=== PATIENT | male | born 1935 | race Caucasian/White ===

== ENCOUNTER 2020-07-03 09:00 | Inpatient (IN) | payer OTHER ==
[2020-07-03] VITALS (21 sets, daily range): BP systolic 85–128; BP diastolic 48–69
[~2020-07-03] VITALS: Ht 172.7 cm; Wt 77.2 kg
--- NOTE | 2020-07-03 09:23 | NUR ---
PT ARRIVED VIA EMS FROM [facility] [place]. PT SOA AND LABORED BREATHING. O2 SAT 79% ON 2 LITERS NC. PT PLACED ON 15 HIGH FLOW. RT CALLED. DR PADILLA NOTIFIED PT O2 SAT IN 80S ON HIGH FLOW NC AND PT LUNGS SOUND COARSE. ORDER GIVEN FOR VAPOTHERM. DR PADILLA WILL BE UP TO SEE PT SOON.
[2020-07-03] MEDS ORDERED: RT-ALBUTEROL/IPRATROPIUM 3 ML (DUONEB) VIAL ONE (09:30)
[2020-07-03 09:40] LABS: ABG BASE EXCESS -6.3 MMOL/L (-2.5-2.5); ABG OXYGEN SATURATION 86 % (94-100); ABG PCO2 63 MMHG (35-45); ABG PO2 72 MMHG (79-93); ABG TCO2 23.4 MMOL/L (21.0-31.0)
[2020-07-03 09:47] LABS: ABG PH 7.15 (7.37-7.43); ALLENS TEST YES-POS; INSPIRED O2 40L VAPOTHERM; PATIENT TEMP 36.4; VENTILATOR NO
[2020-07-03] MEDS ORDERED: RT-ALBUTEROL/IPRATROPIUM 3 ML (DUONEB) VIAL INH SCH (10:00)
--- NOTE | 2020-07-03 10:15 | NUR ---
REPORT GIVEN TO AXEL FOWLER.
--- NOTE | 2020-07-03 10:18 | Diagnostic Imaging Report ---
INDICATION: Shortness of breath. COMPARISON: No prior exam available for comparison. FINDINGS: There is cardiomegaly and ectasia of the thoracic aorta. There are diffuse bilateral pulmonary infiltrates. There is no pleural effusion or pneumothorax. Mediastinum is unremarkable. IMPRESSION: Diffuse bilateral pulmonary infiltrates. This may reflect COVID pneumonia. Recommend clinical correlation. Cardiomegaly and ectasia of the thoracic aorta. Some underlying central pulmonary venous congestion cannot be excluded. Dictated by: Dictated on workstation # [id number]
[2020-07-03 10:52] LABS: BASOPHILS % (AUTO) 0 % (0-10); EOSINOPHILS % (AUTO) 0 % (0-10); HEMATOCRIT 43 % (40-54); HEMOGLOBIN 14.1 g/dL (13.3-17.7); LYMPHOCYTES # (AUTO) 1.9 10^3/uL (1.0-4.0); LYMPHOCYTES % (AUTO) 29 % (12-44); MEAN CORPUSCULAR HEMOGLOBIN 31 pg (25-34); MEAN CORPUSCULAR HGB CONC 33 g/dL (32-36); MEAN CORPUSCULAR VOLUME 95 fL (80-99); MEAN PLATELET VOLUME 11.2 fL (9.0-12.2); MONOCYTES # (AUTO) 0.6 10^3/uL (0.0-1.0); MONOCYTES % (AUTO) 9 % (0-12); NEUTROPHILS % (AUTO) 61 % (42-75); PLATELET COUNT 229 10^3/uL (130-400); WHITE BLOOD COUNT 6.6 10^3/uL (4.3-11.0)
--- NOTE | 2020-07-03 11:01 | NUR ---
THIS NURSE UPDATED MOE THE DAUGHTER OF PT CONDITION.
[2020-07-03 11:09] LABS: ALBUMIN 3.6 GM/DL (3.2-4.5)
[2020-07-03 11:10] LABS: POTASSIUM 3.7 MMOL/L (3.6-5.0)
[2020-07-03 11:11] LABS: CALCIUM 7.7 MG/DL (8.5-10.1)
[2020-07-03 11:12] LABS: TOTAL PROTEIN 6.5 GM/DL (6.4-8.2)
[2020-07-03 11:14] LABS: BILIRUBIN,TOTAL 0.5 MG/DL (0.1-1.0)
[2020-07-03 11:15] LABS: PHOSPHORUS 5.8 MG/DL (2.3-4.7)
[2020-07-03 11:16] LABS: CREATININE SERUM 1.39 MG/DL (0.60-1.30)
[2020-07-03 11:19] LABS: MAGNESIUM 1.8 MG/DL (1.6-2.4)
--- NOTE | 2020-07-03 11:28 | NUR ---
THIS NURSE NOTIFIED DR YAO OF CRITICAL TROPONIN. ORDERS GIVEN. SEE ORDER HISTORY.
--- NOTE | 2020-07-03 11:35 | Consultation-Cardiology ---
HPI-Cardiology Cardiology Consultation: Date of Consultation 07/03/20 Time Seen by a Provider: 10:10 Date of Admission Attending Physician Ashlee Sparrow DO Admitting Physician No,Local Physician Consulting Physician SHANEL YAO MD, MA, FACP, FACC, FSCAI, CCDS Physician requesting consult: Dr Kat HPI: Chief Complaint: CC: Right-sided chest discomfort, worse with inspiration HPI 85 yo man transferred to Dr Kat by Dr Sparrow from the [facility] where he had admitted with gen malaisee and fever and right-sided chest discomfort. Discomfort started on the morning of 07/02/20, was worse with inspiration, was mod in intensity, persisted continuously for 24 hours and has now resolved. Has not had this before. Does not report shortness of breath. Denies palp or syncope or swelling. Notes gen malaise and weakness. No details of his hospitalization at the [facility] are available at the time of this writing. We are told that he had a mildly elevated troponin, but there is no record of it. Review of Systems-Cardiology Review of Systems Constitutional: As described under HPI Eyes: No vision change Ears/Nose/Throat: No ear discharge, No nasal drainage, No recent hearing loss Respiratory: As described under HPI Cardiovascular: As described under HPI Gastrointestinal: No constipation, No diarrhea, No nausea, No vomiting Genitourinary: No dysuria, No hematuria, No urine frequency changes Musculoskeletal: No back pain, No joint pain Skin: No rash, No ulcerations Psychiatric/Neurological: No seizure, No focal weakness, No syncope Hematologic: No bleeding abnormalities JDU-Mspjab-Qrrptm Hx Immunizations Up To Date Date of Influenza Vaccine: Mar 13, 2021 Past Medical History PMH As described under Assessment. Family Medical History Family Medical History: He does not describe any fam h/o premature CAD or sudden cardiac Allergies and Home Medications Allergies Coded Allergies: No Known Drug Allergies (Unverified , 07/03/20) Patient Home Medication List Home Medication List Reviewed: Yes Physical Exam-Cardiology Physical Exam Vital Signs/I&O 07/03/20 07/03/20 07/03/20 07/03/20 09:11 09:15 09:30 10:00 Temp 36.4 Pulse 97 101 103 Resp 28 35 B/P (MAP) 128/68 (88) Pulse Ox 83 87 87 O2 Delivery High Flow N/C Vapotherm Vapotherm O2 Flow Rate 15.00 40.00 40.00 100.00 FiO2 100 07/03/20 07/03/20 11:00 11:18 Pulse 74 77 Resp 27 23 B/P (MAP) 85/48 (60) Pulse Ox 92 94 O2 Delivery Vapotherm O2 Flow Rate 40.00 70.00 100.00 Capillary Refill : Constitutional: AAO x 3, well-developed, well-nourished HEENT: EOMI, hearing is well preserved; No xanthelasmas are seen Neck: carotid pulses are 2 + bilaterally, with good upstrokes Respiratory: No accessory muscle use; other (basal coarse crackles and scattered rhonchi) Cardiovascular: regular rate-rhythm, S1 and S2, systolic murmur (soft ANKIT at card base) Gastrointestinal: No tender; soft; No guarding, No rebound; audible bowel sounds Extremities: No clubbing, No cyanosis, No significant edema Neurologic/Psychiatric: oriented x 3, other (moves all limbs equally) Skin: No rash, No ulcerations Data Review Labs Laboratory Tests 07/03/20 09:35: Blood Gas Puncture Site LT RAD, Blood Gas Patient Temperature 36.4, Arterial Blood pH 7.15*L, Arterial Blood Partial Pressure CO2 63H, Arterial Blood Partial Pressure O2 72L, Arterial Blood HCO3 21L, Arterial Blood Total CO2 23.4, Arteria l Blood Oxygen Saturation 86L, Arterial Blood Base Excess -6.3L, Qamar Test YES- POS, Blood Gas Ventilator Setting NO, Blood Gas Inspired Oxygen 40L VAPOTHERM 07/03/20 10:35: White Blood Count 6.6, Red Blood Count 4.49, Hemoglobin 14.1, Hematocrit 43, Mean Corpuscular Volume 95, Mean Corpuscular Hemoglobin 31, Mean Corpuscular Hemoglobin Concent 33, Red Cell Distribution Width 12.9, Platelet Count 229, Mean Platelet Volume 11.2, Immature Granulocyte % (Auto) 1, Neutrophils (%) (Auto) 61, Lymphocytes (%) (Auto) 29, Monocytes (%) (Auto) 9, Eosinophils (%) (Auto) 0, Basophils (%) (Auto) 0, Neutrophils # (Auto) 4.0, Lymphocytes # (Auto) 1.9, Monocytes # (Auto) 0.6, Eosinophils # (Auto) 0.0, Basophils # (Auto) 0.0, Immature Granulocyte # (Auto) 0.0, D-Dimer 2.34H, Sodium Level 137, Potassium Level 3.7, Chloride Level 105, Carbon Dioxide Level 21, Anion Gap 11, Blood Urea Nitrogen 28H, Creatinine 1.39H, Estimat Glomerular Filtration Rate 49, BUN/Creatinine Ratio 20, Glucose Level 199H, Lactic Acid Level 1.63, Calcium Level 7.7L, Corrected Calcium 8.0L, Phosphorus Level 5.8H, Magnesium Level 1.8, Total Bilirubin 0.5, Aspartate Amino Transf (AST/SGOT) 75H, Alanine Aminotransferase (ALT/SGPT) 23, Alkaline Phosphatase 80, Total Protein 6.5, Albumin 3.6 A/P-Cardiology Assessment/Admission Diagnosis COVID-19 Nonspecific (R-sided, pleuritic) chest discomfort Hypotension Elevated troponin: NSTEMI vs type 2 [place] due to hypotension 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
[2020-07-03] MEDS ORDERED: ENOXAPARIN 40 MG/0.4 ML (LOVENOX) SYR SC ONE (11:45)
[2020-07-03] MEDS ORDERED: CLOPIDOGREL 300 MG (PLAVIX) TABLET PO ONE (11:45)
[2020-07-03] MEDS ORDERED: ASPIRIN 81 MG CHEW (CHILDREN'S ASA) PO ONE (11:45)
[2020-07-03] MEDS ORDERED: ASPIRIN 81 MG CHEW (CHILDREN'S ASA) ONE (11:46)
[2020-07-03] MEDS ORDERED: ENOXAPARIN 40 MG/0.4 ML (LOVENOX) SYR ONE (11:47)
[2020-07-03] MEDS ORDERED: NS (IVPB) 250 ML IV ONE (12:00)
[2020-07-03] MEDS ORDERED: NS IV 1000 ML 1,000 ML IV SCH (12:00)
[2020-07-03] MEDS: guaiFENesin (MUCINEX) 600 MG TAB PO SCH ×2 (12:30→20:55)
[2020-07-03 13:24] LABS: ABG BASE EXCESS -4.6 MMOL/L (-2.5-2.5); ABG OXYGEN SATURATION 97 % (94-100); ABG PCO2 36 MMHG (35-45); ABG PH 7.36 (7.37-7.43); ABG PO2 46 MMHG (79-93); ABG TCO2 20.9 MMOL/L (21.0-31.0)
[2020-07-03 13:25] LABS: ALLENS TEST POS; INSPIRED O2 70%; PATIENT TEMP 37; VENTILATOR NO
--- NOTE | 2020-07-03 13:36 | Pulmonary Consultation ---
History of Present Illness History of Present Illness Date Seen by Provider: Jul 03, 2020 Time Seen by Provider: 13:30 Date of Admission Allergies and Home Medications Allergies Coded Allergies: No Known Drug Allergies (Unverified , 07/03/20) Past Gqjieie-Syuefk-Xmilbr Hx Immunizations Up To Date Date of Influenza Vaccine: Mar 13, 2021 Review of Systems Time Seen by Provider: 13:36 Sepsis Event Evaluation Height, Weight, BMI Height: '" Weight: lbs. oz. kg; BMI Method: Exam Exam Vital Signs Date Time Temp Pulse Resp B/P (MAP) Pulse Ox O2 Delivery O2 Flow Rate FiO2 07/03/20 11:18 77 23 94 70.00 07/03/20 11:00 74 27 85/48 (60) 92 Vapotherm 40.00 100.00 07/03/20 10:00 103 35 128/68 (88) 87 Vapotherm 40.00 100.00 07/03/20 09:30 87 Vapotherm 40.00 100 07/03/20 09:15 36.4 101 28 83 High Flow N/C 15.00 07/03/20 09:11 97 Height & Weight Height: '" Weight: lbs. oz. 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
[2020-07-03] MEDS: LACTATED RINGERS 1,000 ML IV SCH (14:00)
[2020-07-03] MEDS ORDERED: ENOXAPARIN 80 MG/0.8 ML (LOVENOX) SYR SC SCH (14:00)
[2020-07-03] MEDS ORDERED: ENOXAPARIN 40 MG/0.4 ML (LOVENOX) SYR SC SCH (14:30)
[2020-07-03] MEDS ORDERED: NS (IVPB) 250 ML ONE (14:37)
[2020-07-03] MEDS: IPRATROPIUM INHALER (ATROVENT) 12.9 GM INH SCH ×3 (15:31→22:51)
[2020-07-03] MEDS: RT-ALBUTEROL INHALER HFA (VENTOLIN HFA) 18 GM IH SCH ×3 (15:31→22:51)
[2020-07-03] MEDS ORDERED: RT-ALBUTEROL INHALER HFA (VENTOLIN HFA) 18 GM IH PRN (16:00)
--- NOTE | 2020-07-03 16:19 | NUR ---
UNABLE TO SPEAK WITH PT AT THIS TIME- I HAVE SENT A MEDICATION REQUEST TO THE [facility]. WHEN I RECEIVE THE MED LIST I WILL ATTACH A COPY TO THE CHART AND ENTER THE MED REC Addendum: 07/04/20 at 0852 by MARLEN MELARA pickling tank operator STILL UNABLE TO SPEAK WITH THE FOLLOWING IS WHAT IS ON THE MO MEDICATION LIST: 03-03-2020 BRIMONIDINE #5ML 05-22-2020 DORZOLAMIDE/TIMOLOL #10ML 05-26-2020 ROSUVASTATIN 40MG #45/90DS 05-26-2020 CYCLOBENZAPRINE 10MG #90/30DS 06-16-2020 AMLODIPINE 10MG #90/90DS 06-16-2020 LISINOPRIL 20MG #90/90DS 06-16-2020 CHLORTHALIDONE 25MG #90/90DS OTC MEDS ON THE MO LIST: ASPIRIN 81MG CENTRUM
--- NOTE | 2020-07-03 19:32 | NUR ---
SPOKE WITH PATIENT IN REGARDS TO POSSIBLE HEART CATHETERIZATION. PAT[facility] STATED THAT [facility] NEED[facility]WARE AND ASKED IF DR YAO CAN PREFORM THE PROCEDURE. THIS RN CALLED THE [facility] AND WAS GIVEN ANOTHER NUMBER TO CALL. THIS NUMBER WAS CALLED AND YET AGAIN TOLD ANOTHER NUMBER TO CALL. AFTER SPEAKING WITH A LAUNDRY SUPERINTENDENT EVERYTHING THAT IS DONE FROM THE ER ADMISSION IS IN THE SAME CONSULT AND NO NEW ONES ARE NEEDED AT THIS TIME. IF PATIENT IS TO BE LATER TRANSFERRED A NEW CONSULT WILL NEED TO BE FILED. ME NUMBER IS
--- NOTE | 2020-07-03 19:36 | NUR ---
SPOKE WITH PATIENT FAMILY. FAMILY ASKED "WITH COVID BAD IT IS, DO WE NEED TO TALK ABOUT POSSIBLE INTUBATION AND DNR". THIS RN RESPONDED BY TELLING FAMILY TO GO AHEAD WITH THIS CONVERSATION THE PATIENT IS REQUIRING A LOT OF OXYGEN. FAMILY CALLED BACK AND INFORMED ME THAT THE PATIENT HAS DNR PAPERWORK BUT THAT THE DNR WAS CONDITIONAL ON WHAT HIS QUALITY OF LIFE WOULD BE AFTERWARDS. FAMILY ALSO STATED THAT IF NEEDED THEY WOULD LIKE INTUBATION. PATIENT IS CURRENTLY ALERT, ORIENTED, AND ABLE TO MAKE HIS OWN HEALTH CHOICES.
[2020-07-03] MEDS: CALCIUM ACETATE 667 MG CAP (PHOSLO) PO SCH (19:48)
[2020-07-03] MEDS: FAMOTIDINE 20MG/2ML IV (PEPCID) IV SCH (20:55)
[2020-07-04] VITALS (25 sets, daily range): BP systolic 98–138; BP diastolic 49–82
[2020-07-04] MEDS ORDERED: ENOXAPARIN 80 MG/0.8 ML (LOVENOX) SYR SC SCH (01:00)
[2020-07-04] MEDS: IPRATROPIUM INHALER (ATROVENT) 12.9 GM INH SCH ×6 (01:25→23:18)
[2020-07-04] MEDS: RT-ALBUTEROL INHALER HFA (VENTOLIN HFA) 18 GM IH SCH ×6 (01:25→23:18)
[2020-07-04] MEDS: LACTATED RINGERS 1,000 ML IV SCH ×3 (01:45→20:27)
[2020-07-04 02:30] LABS: BASOPHILS % (AUTO) 0 % (0-10); EOSINOPHILS % (AUTO) 0 % (0-10); HEMATOCRIT 36 % (40-54); LYMPHOCYTES # (AUTO) 1.6 10^3/uL (1.0-4.0); LYMPHOCYTES % (AUTO) 23 % (12-44); MEAN CORPUSCULAR HEMOGLOBIN 32 pg (25-34); MEAN CORPUSCULAR HGB CONC 33 g/dL (32-36); MEAN CORPUSCULAR VOLUME 96 fL (80-99); MEAN PLATELET VOLUME 11.3 fL (9.0-12.2); MONOCYTES # (AUTO) 1.2 10^3/uL (0.0-1.0); MONOCYTES % (AUTO) 17 % (0-12); NEUTROPHILS % (AUTO) 59 % (42-75); PLATELET COUNT 171 10^3/uL (130-400); WHITE BLOOD COUNT 6.8 10^3/uL (4.3-11.0)
[2020-07-04 02:32] LABS: ABG BASE EXCESS -1.7 MMOL/L (-2.5-2.5); ABG OXYGEN SATURATION 74 % (94-100); ABG PCO2 44 MMHG (35-45); ABG PH 7.35 (7.37-7.43); ABG PO2 46 MMHG (79-93); ABG TCO2 24.8 MMOL/L (21.0-31.0)
[2020-07-04 02:33] LABS: ALLENS TEST YES-POS; CHLORIDE 104 MMOL/L (98-107); INSPIRED O2 70%; PATIENT TEMP 36.4; POTASSIUM 3.8 MMOL/L (3.6-5.0); SODIUM 137 MMOL/L (135-145); VENTILATOR NO
[2020-07-04 02:34] LABS: CALCIUM 7.7 MG/DL (8.5-10.1)
[2020-07-04 02:35] LABS: GLUCOSE 98 MG/DL (70-105)
[2020-07-04 02:36] LABS: CARBON DIOXIDE 21 MMOL/L (21-32)
[2020-07-04 02:39] LABS: BUN/CREATININE RATIO 28; CREATININE SERUM 1.12 MG/DL (0.60-1.30); GFR ESTIMATED > 60
[2020-07-04 02:41] LABS: MAGNESIUM 1.9 MG/DL (1.6-2.4)
--- NOTE | 2020-07-04 04:56 | Pulmonary Progress Note ---
Subjective Time Seen by a Provider: 04:54 Subjective/Events-last exam No complications noted. Sepsis Event Evaluation Height, Weight, BMI Height: '" Weight: lbs. oz. kg; 29.27 BMI Method: Focused Exam Lactate Level 07/03/20 10:35: Lactic Acid Level 1.63 Exam Exam Vital Signs Date Time Temp Pulse Resp B/P (MAP) Pulse Ox O2 Delivery O2 Flow Rate FiO2 07/04/20 04:00 80 17 124/68 (86) 95 NIV Bilevel 60.00 07/04/20 03:00 75 18 126/73 (90) 97 NIV Bilevel 60.00 07/04/20 02:00 80 18 126/66 (86) 96 NIV Bilevel 60.00 07/04/20 01:25 75 18 99 60.00 07/04/20 01:00 80 07/04/20 01:00 79 18 109/66 (80) 99 NIV Bilevel 60.00 07/04/20 00:00 72 18 112/67 (82) 99 NIV Bilevel 60.00 07/03/20 23:31 37.2 07/03/20 23:00 70 18 119/69 (86) 96 NIV Bilevel 60.00 07/03/20 22:51 71 22 98 60.00 07/03/20 22:00 72 17 102/60 (74) 97 NIV Bilevel 60.00 07/03/20 21:00 73 18 104/62 (76) 98 NIV Bilevel 60.00 07/03/20 20:30 NIV Bilevel 07/03/20 20:00 76 17 112/64 (80) 98 NIV Bilevel 60.00 07/03/20 19:19 37.5 NIV Bilevel 60.00 07/03/20 19:04 71 22 98 70.00 07/03/20 19:00 70 07/03/20 19:00 70 17 109/63 (78) 99 Vapotherm 40.00 100.00 07/03/20 18:00 71 18 90/51 (64) 98 Vapotherm 40.00 100.00 07/03/20 17:00 69 16 89/52 (64) 98 Vapotherm 40.00 100.00 07/03/20 16:00 78 21 105/59 (74) 99 Vapotherm 40.00 100.00 07/03/20 15:48 37.4 75 18 86/55 96 NIV Bilevel 70 07/03/20 15:31 75 18 97 70.00 07/03/20 15:28 37.5 75 17 95/57 96 NIV Bilevel 70 07/03/20 15:26 37.3 07/03/20 15:00 78 24 99/60 (73) 97 Vapotherm 40.00 100.00 07/03/20 14:00 74 19 95/57 (70) 93 Vapotherm 40.00 100.00 07/03/20 13:00 74 19 87/57 (67) 93 Vapotherm 40.00 100.00 07/03/20 12:49 36.4 73 93 70 07/03/20 12:33 77 07/03/20 12:00 81 25 106/60 (75) 94 Vapotherm 40.00 100.00 07/03/20 11:18 77 23 94 70.00 07/03/20 11:00 74 27 85/48 (60) 92 Vapotherm 40.00 100.00 07/03/20 10:00 103 35 128/68 (88) 87 Vapotherm 40.00 100.00 07/03/20 09:30 87 Vapotherm 40.00 100 07/03/20 09:15 36.4 101 28 83 High Flow N/C 15.00 07/03/20 09:11 97 I & O 07/04/20 07:00 Intake Total 1890 ml Output Total 550 ml Balance 1340 ml Height & Weight Height: '" Weight: lbs. oz. kg; 29.27 BMI Method: General Appearance: No Apparent Distress HEENT: PERRL/EOMI, TMs Normal Neck: Full Range of Motion, Normal Inspection, Non Tender Respiratory: Chest Non Tender, Lungs Clear, Normal Breath Sounds Cardiovascular: Regular Rate, Rhythm, No Edema, No Gallop Capillary Refill: Less Than 3 Seconds Gastrointestinal: normal bowel sounds, non tender, soft Extremity: Normal Capillary Refill, Normal Inspection Neurologic/Psychiatric: Alert, Oriented x3 Skin: Normal Color, Warm/Dry Lymphatic: No Adenopathy Results Lab Laboratory Tests 07/03/20 10:35 07/04/20 02:05 Assessment/Plan Assessment/Plan Acute respiratory failure secondary to COVID 19 severe ARDS -Change to Vapotherm - Pt appears better this AM -Give 40mg of Lasix x 1 -Dx 07/03 - Decadron -CVP -Prone as tolerated -Pt does not qualify for remdesivir ri Right sided pleuritic CP/Presumed acute PE -Increase Lovenox to 1mg/kg BID 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
[2020-07-04] MEDS ORDERED: FUROSEMIDE 40 MG/4 ML INJ (LASIX) IVP ONE (05:00)
[2020-07-04] MEDS: POTASSIUM CL 10MEQ/50ML IVPB 50 ML IV SCH ×7 (06:16→10:30)
--- NOTE | 2020-07-04 07:52 | Diagnostic Imaging Report ---
EXAMINATION: Chest radiograph, portable AP view. DATE: 07/04/2020 2:37 AM INDICATION: 85-year-old male, dyspnea. COMPARISON: July 03, 2020. FINDINGS: Stable overall appearance of the cardia mediastinal silhouette. There is no identified pneumothorax. There is no large pleural effusion. There is airspace consolidation in the right upper lobe and right perihilar region. There is interval improved multifocal lung consolidation since the comparison study. IMPRESSION: 1. Improved multifocal bilateral lung consolidation with persistent airspace consolidation most notable in the right upper lobe and right perihilar region. Dictated by: Dictated on workstation # [id number]
[2020-07-04] MEDS ORDERED: ROSU40TA23 PO (08:47)
[2020-07-04] MEDS ORDERED: BRIMON0.2 OU (08:47)
[2020-07-04] MEDS ORDERED: MULT-1029 PO (08:47)
[2020-07-04] MEDS ORDERED: DORZ10DR8 OU (08:47)
[2020-07-04] MEDS ORDERED: ASPI-1238 PO (08:47)
[2020-07-04] MEDS ORDERED: AMLO-251 PO (08:47)
[2020-07-04] MEDS ORDERED: LISI-552 PO (08:47)
[2020-07-04] MEDS ORDERED: CHLO25TA22 PO (08:47)
[2020-07-04] MEDS ORDERED: CYCL10TA9 PO (08:48)
[2020-07-04] MEDS: FAMOTIDINE 20MG/2ML IV (PEPCID) IV SCH ×2 (08:51→20:27)
[2020-07-04] MEDS: ZINC SULFATE 220 MG CAPSULE PO SCH (08:52)
[2020-07-04] MEDS: CLOPIDOGREL 75 MG (PLAVIX) TABLET PO SCH (08:52)
[2020-07-04] MEDS: MULTIVIT W/MINERALS TAB (THERAGRAN M) PO SCH (08:52)
[2020-07-04] MEDS: ASPIRIN 81 MG CHEW (CHILDREN'S ASA) PO SCH (08:52)
[2020-07-04] MEDS: CALCIUM ACETATE 667 MG CAP (PHOSLO) PO SCH ×3 (08:52→18:13)
[2020-07-04] MEDS: guaiFENesin (MUCINEX) 600 MG TAB PO SCH ×2 (08:52→20:27)
--- NOTE | 2020-07-04 09:49 | Progress Note - Cardiology ---
Cardiology SOAP Progress Note Subjective: Lying in bed On Vapo-therm No c/o CP this morning Feels SOB is improving States he feels much better today Objective: I&O/Vital Signs 07/08/20 07/08/20 07/08/20 07/08/20 21:29 21:33 21:33 22:00 Temp 36.6 Pulse 67 Resp 19 B/P (MAP) 111/60 (77) Pulse Ox 97 96 94 O2 Delivery Vapotherm Vapotherm Vapotherm O2 Flow Rate 30.00 35.00 30.00 35.00 50.00 50.00 FiO2 55 50 07/08/20 07/08/20 07/09/20 07/09/20 22:53 23:00 00:00 00:20 Temp 36.3 Pulse 67 69 Resp 20 20 B/P (MAP) 102/59 (73) 110/55 (73) Pulse Ox 92 91 O2 Delivery Vapotherm Vapotherm O2 Flow Rate 30.00 30.00 30.00 30.00 50.00 50.00 50.00 40.00 07/09/20 07/09/20 07/09/20 07/09/20 01:00 01:00 02:00 02:18 Pulse 64 64 63 Resp 21 17 B/P (MAP) 101/63 (76) 103/51 (68) Pulse Ox 90 92 96 O2 Delivery Vapotherm Vapotherm O2 Flow Rate 30.00 30.00 30.00 40.00 40.00 FiO2 50 07/09/20 07/09/20 07/09/20 07/09/20 02:18 03:00 04:00 04:52 Pulse 67 70 Resp 14 22 B/P (MAP) 107/58 (74) 111/65 (80) Pulse Ox 93 91 89 O2 Delivery Vapotherm Vapotherm Vapotherm Vapotherm O2 Flow Rate 30.00 30.00 30.00 25.00 40.00 40.00 40.00 FiO2 40 07/09/20 07/09/20 07/09/20 07/09/20 05:00 06:36 06:57 06:58 Pulse 69 64 B/P (MAP) 122/61 (81) Pulse Ox 93 88 88 O2 Delivery Vapotherm Vapotherm Vapotherm O2 Flow Rate 25.00 15.00 15.00 40.00 FiO2 30 30 07/09/20 07/09/20 08:00 08:28 Temp 36.1 Pulse 75 81 Resp 22 22 B/P (MAP) 117/60 (79) 127/78 (94) Pulse Ox 88 92 O2 Delivery Vapotherm Vapotherm O2 Flow Rate 25.00 15.00 40.00 40.00 07/09/20 00:00 Intake Total 760 ml Output Total 1725 ml Balance -965 ml Constitutional: AAO x 3, well-developed, well-nourished Respiratory: No accessory muscle use; other (basal coarse crackles and scattered rhonchi) Cardiovascular: regular rate-rhythm, S1 and S2, systolic murmur (soft ANKIT at card base) Gastrointestional: No tender; soft; No guarding, No rebound; audible bowel sounds Extremities: No clubbing, No cyanosis, No significant edema Neurologic/Psychiatric: oriented x 3, other (moves all limbs equally) Skin: No rash, No ulcerations Results/Procedures: Labs Laboratory Tests 07/09/20 02:43: White Blood Count 10.2, Red Blood Count 3.99L, Hemoglobin 12.3L, Hematocrit 37L, Mean Corpuscular Volume 93, Mean Corpuscular Hemoglobin 31, Mean Corpuscular Hemoglobin Concent 33, Red Cell Distribution Width 12.6, Platelet Count 186, Mean Platelet Volume 12.0, Immature Granulocyte % (Auto) 1, Neutrophils (%) (Auto) 85H, Lymphocytes (%) (Auto) 7L, Monocytes (%) (Auto) 7, Eosinophils (%) (Auto) 0, Basophils (%) (Auto) 0, Neutrophils # (Auto) 8.6H, Lymphocytes # (Auto) 0.7L, Monocytes # (Auto) 0.7, Eosinophils # (Auto) 0.0, Basophils # (Auto) 0.0, Immature Granulocyte # (Auto) 0.1, Sodium Level 138, Potassium Level 3.8, Chloride Level 96L, Carbon Dioxide Level 30, Anion Gap 12, Blood Urea Nitrogen 50H, Creatinine 1.32H, Estimat Glomerular Filtration Rate 52, BUN/Creatinine Ratio 38, Glucose Level 129H, Calcium Level 8.9, Phosphorus Level 4.6, Magnesium Level 2.3 Microbiology 07/03/20 MRSA Screen - Final, Complete MRSA not isolated 07/03/20 Blood Culture - Final, Complete No growth Procedures NAME: [facility]RI[facility] REC#: [id number] PT STATUS: ADM IN : 1935 PHYSICIAN: JAMILA LEUNG DO ADMIT DATE: 07/03/20/ICU Signed Date of Exam:07/04/20 CHEST 1 VIEW, AP/PA ONLY EXAMINATION: Chest radiograph, portable AP view. DATE: 07/04/2020 2:37 AM INDICATION: 85-year-old male, dyspnea. COMPARISON: July 03, 2020. FINDINGS: Stable overall appearance of the cardia mediastinal silhouette. There is no identified pneumothorax. There is no large pleural effusion. There is airspace consolidation in the right upper lobe and right perihilar region. There is interval improved multifocal lung consolidation since the comparison study. IMPRESSION: 1. Improved multifocal bilateral lung consolidation with persistent airspace consolidation most notable in the right upper lobe and right perihilar region. 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 * Monitor labs BRIGITTE WEIR Jul 04, 2020 09:49
[2020-07-04] MEDS ORDERED: ONDANSETRON 4 MG/2 ML (SDV) Z0FRAN ONE (10:16)
[2020-07-04] MEDS: ENOXAPARIN 40 MG/0.4 ML (LOVENOX) SYR SQ SCH (10:27)
[2020-07-04] MEDS ORDERED: ENOXAPARIN 40 MG/0.4 ML (LOVENOX) SYR SC SCH (11:45)
--- NOTE | 2020-07-04 12:58 | NUR ---
Attempted to call oksana Carlton at this time. No answer. Will await return phone call.
--- NOTE | 2020-07-04 17:06 | Progress Note - Cardiology ---
Cardiology SOAP Progress Note Subjective: Feels much better than on day of admission No cp or palp or syncope Shortness of breath better No swelling No n/v Objective: I&O/Vital Signs 07/04/20 07/04/20 07/04/20 07/04/20 05:25 06:00 07:00 07:00 Pulse 89 86 86 Resp 16 20 B/P (MAP) 126/68 (87) 138/72 (94) Pulse Ox 92 91 O2 Delivery Vapotherm Vapotherm Vapotherm O2 Flow Rate 40.00 40.00 40.00 40.00 40.00 40.00 07/04/20 07/04/20 07/04/20 07/04/20 07:17 07:22 08:00 08:00 Temp 37.8 Pulse 86 Resp 20 B/P (MAP) 131/66 (87) Pulse Ox 94 94 92 O2 Delivery Vapotherm Vapotherm Vapotherm O2 Flow Rate 40.00 40.00 40.00 40.00 FiO2 40 40 07/04/20 07/04/20 07/04/20 07/04/20 09:00 09:00 09:35 09:36 Pulse 90 Resp 20 B/P (MAP) 133/74 (93) Pulse Ox 97 93 93 O2 Delivery NIV Bilevel Vapotherm Vapotherm Vapotherm O2 Flow Rate 40.00 40.00 40.00 40.00 FiO2 40 40 07/04/20 07/04/20 07/04/20 07/04/20 10:00 10:09 11:00 12:00 Temp 35.7 Pulse 89 93 Resp 26 19 B/P (MAP) 134/61 (85) 105/49 (67) Pulse Ox 91 87 97 O2 Delivery Vapotherm Vapotherm Vapotherm O2 Flow Rate 40.00 40.00 40.00 40.00 40.00 FiO2 40 07/04/20 07/04/20 07/04/20 07/04/20 12:00 12:31 13:00 13:39 Pulse 92 83 78 Resp 15 12 B/P (MAP) 113/71 (85) 115/65 (82) Pulse Ox 95 96 98 O2 Delivery Vapotherm Vapotherm Vapotherm O2 Flow Rate 40.00 40.00 40.00 40.00 40.00 FiO2 50 1/22/07/04/20 07/04/20 07/04/20 13:40 14:00 15:00 15:57 Temp 35.9 Pulse 75 75 Resp 15 12 B/P (MAP) 116/59 (78) 98/52 (67) Pulse Ox 94 93 92 O2 Delivery Vapotherm Vapotherm Vapotherm O2 Flow Rate 30.00 40.00 40.00 40.00 40.00 FiO2 40 07/04/20 16:00 Pulse 71 Resp 16 B/P (MAP) 113/65 (81) Pulse Ox 95 O2 Delivery Vapotherm O2 Flow Rate 40.00 40.00 07/04/20 00:00 Intake Total 740 ml Output Total 325 ml Balance 415 ml Constitutional: AAO x 3, well-developed, well-nourished Respiratory: No accessory muscle use; other (basal coarse crackles and scattered rhonchi) Cardiovascular: regular rate-rhythm, S1 and S2, systolic murmur (soft ANKIT at card base) Gastrointestional: No tender; soft; No guarding, No rebound; audible bowel sounds Extremities: No clubbing, No cyanosis, No significant edema Neurologic/Psychiatric: oriented x 3, other (moves all limbs equally) Skin: No rash, No ulcerations Results/Procedures: Labs Laboratory Tests 07/04/20 02:05: White Blood Count 6.8, Red Blood Count 3.80L, Hemoglobin 12.0L, Hematocrit 36L, Mean Corpuscular Volume 96, Mean Corpuscular Hemoglobin 32, Mean Corpuscular Hemoglobin Concent 33, Red Cell Distribution Width 13.2, Platelet Count 171, Mean Platelet Volume 11.3, Immature Granulocyte % (Auto) 0, Neutrophils (%) (Auto) 59, Lymphocytes (%) (Auto) 23, Monocytes (%) (Auto) 17H, Eosinophils (%) (Auto) 0, Basophils (%) (Auto) 0, Neutrophils # (Auto) 4.0, Lymphocytes # (Auto) 1.6, Monocytes # (Auto) 1.2H, Eosinophils # (Auto) 0.0, Basophils # (Auto) 0.0, Immature Granulocyte # (Auto) 0.0, Blood Gas Puncture Site LEFT RADIAL, Blood Gas Patient Temperature 36.4, Arterial Blood pH 7.35L, Arterial Blood Partial Pressure CO2 44, Arterial Blood Partial Pressure O2 46L, Arterial Blood HCO3 23, Arterial Blood Total CO2 24.8, Arterial Blood Oxygen Saturation 74L, Arterial Blood Base Excess -1.7, Qamar Test YES-POS, Blood Gas Ventilator Setting NO, Blood Gas Inspired Oxygen 70%, Sodium Level 137, Potassium Level 3.8, Chloride Level 104, Carbon Dioxide Level 21, Anion Gap 12, Blood Urea Nitrogen 31H, Creatinine 1.12, Estimat Glomerular Filtration Rate > 60, BUN/Creatinine Ratio 28, Glucose Level 98, Calcium Level 7.7L, Phosphorus Level 4.0, Magnesium Level 1.9 Microbiology 07/03/20 MRSA Screen - Final, Complete MRSA not isolated Laboratory Tests 07/03/20 10:35 07/04/20 02:05 A/P: Assessment: COVID-19 Nonspecific (R-sided, pleuritic) chest discomfort Hypotension, improved Elevated troponin: NSTEMI vs type 2 [place] due to hypotension 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
[2020-07-05] VITALS (24 sets, daily range): BP systolic 101–150; BP diastolic 49–109
[2020-07-05] MEDS: RT-ALBUTEROL INHALER HFA (VENTOLIN HFA) 18 GM IH SCH ×6 (02:37→22:34)
[2020-07-05] MEDS: IPRATROPIUM INHALER (ATROVENT) 12.9 GM INH SCH ×6 (02:37→22:35)
[2020-07-05 03:56] LABS: BASOPHILS % (AUTO) 0 % (0-10); EOSINOPHILS % (AUTO) 0 % (0-10); HEMATOCRIT 37 % (40-54); HEMOGLOBIN 12.3 g/dL (13.3-17.7); LYMPHOCYTES % (AUTO) 18 % (12-44); MEAN CORPUSCULAR HEMOGLOBIN 31 pg (25-34); MEAN CORPUSCULAR HGB CONC 34 g/dL (32-36); MEAN CORPUSCULAR VOLUME 93 fL (80-99); MONOCYTES # (AUTO) 0.9 10^3/uL (0.0-1.0); MONOCYTES % (AUTO) 16 % (0-12); NEUTROPHILS # (AUTO) 3.6 10^3/uL (1.8-7.8); NEUTROPHILS % (AUTO) 65 % (42-75); PLATELET COUNT 159 10^3/uL (130-400); WHITE BLOOD COUNT 5.5 10^3/uL (4.3-11.0)
[2020-07-05 04:09] LABS: CHLORIDE 103 MMOL/L (98-107); POTASSIUM 3.8 MMOL/L (3.6-5.0); SODIUM 136 MMOL/L (135-145)
[2020-07-05 04:10] LABS: CALCIUM 8.4 MG/DL (8.5-10.1)
[2020-07-05 04:11] LABS: GLUCOSE 142 MG/DL (70-105)
[2020-07-05 04:12] LABS: CARBON DIOXIDE 21 MMOL/L (21-32)
[2020-07-05 04:14] LABS: PHOSPHORUS 2.3 MG/DL (2.3-4.7)
[2020-07-05 04:15] LABS: CREATININE SERUM 0.89 MG/DL (0.60-1.30); GFR ESTIMATED > 60
[2020-07-05 04:16] LABS: BUN/CREATININE RATIO 31
[2020-07-05 04:17] LABS: MAGNESIUM 1.9 MG/DL (1.6-2.4)
--- NOTE | 2020-07-05 05:51 | Progress Note - Hospitalist ---
Subjective HPI/CC On Admission Date Seen by Provider: Jul 05, 2020 Time Seen by Provider: 11:00 Subjective/Events-last exam Patient just returned from cath without intervention Patient sleepy RN has no concerns about him Off Vapotherm on 2L/min NC COVID-19 ++ Focused Exam Lactate Level 07/03/20 10:35: Lactic Acid Level 1.63 Objective Exam Vital Signs Vital Signs Date Time Temp Pulse Resp B/P (MAP) Pulse Ox O2 Delivery O2 Flow Rate FiO2 07/06/20 06:00 67 21 138/74 (95) 93 Vapotherm 25.00 40.00 07/06/20 04:00 36.0 07/06/20 02:47 40 Capillary Refill : Less Than 3 Seconds General Appearance: No Apparent Distress, WD/WN, Chronically ill Respiratory: Lungs Clear, Normal Breath Sounds Cardiovascular: Regular Rate, Rhythm Results/Procedures Lab Laboratory Tests 07/06/20 03:16 Patient resulted labs reviewed. 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
[2020-07-05] MEDS: LACTATED RINGERS 1,000 ML IV SCH (06:21)
--- NOTE | 2020-07-05 07:45 | NUR ---
Call placed to Dr. arevalo regarding potential heart cath today for pt. Dr. Arevalo stated to schedule heart cath for 1200 today. Patient can have clear liquid breakfast then NPO. Physical Anthropologist notified. Addition to cath sent.
--- NOTE | 2020-07-05 08:12 | Diagnostic Imaging Report ---
INDICATION: Dyspnea. Comparison is made with prior examination from 07/04/2020. FINDINGS: Heart size is stable. Further continued improvement in the multifocal pulmonary infiltrates. There is no pleural effusion or pneumothorax. The mediastinum is unremarkable. IMPRESSION: Continued improvement in the multifocal pulmonary infiltrates. Dictated by: Dictated on workstation # [id number]
[2020-07-05] MEDS: CALCIUM ACETATE 667 MG CAP (PHOSLO) PO SCH ×3 (08:56→16:45)
[2020-07-05] MEDS: ZINC SULFATE 220 MG CAPSULE PO SCH (08:56)
[2020-07-05] MEDS: guaiFENesin (MUCINEX) 600 MG TAB PO SCH ×2 (08:56→20:38)
[2020-07-05] MEDS: CLOPIDOGREL 75 MG (PLAVIX) TABLET PO SCH (08:56)
[2020-07-05] MEDS: ASPIRIN 81 MG CHEW (CHILDREN'S ASA) PO SCH (08:57)
[2020-07-05] MEDS: MULTIVIT W/MINERALS TAB (THERAGRAN M) PO SCH (08:57)
[2020-07-05] MEDS: FAMOTIDINE 20MG/2ML IV (PEPCID) IV SCH ×2 (08:57→20:38)
[2020-07-05] MEDS: ENOXAPARIN 40 MG/0.4 ML (LOVENOX) SYR SQ SCH (09:03)
--- NOTE | 2020-07-05 09:03 | NUR ---
Lovenox held at this time d/t pending heart cath at 1200.
[2020-07-05] MEDS ORDERED: LIDOCAINE 1% INJ 20 ML 20 ML VIAL ONE (10:56)
[2020-07-05] MEDS ORDERED: fentaNYL INJECTION 100 MCG/2 ML AMP ONE (10:56)
[2020-07-05] MEDS ORDERED: MIDAZOLAM 5 MG/5 ML (VERSED) VIAL ONE (10:56)
[2020-07-05] MEDS ORDERED: HEParin 1000 UNIT/ML (10ML VIAL) FOR BOLUS ONE (10:57)
[2020-07-05] MEDS ORDERED: NS IV 1000 ML 1,000 ML ONE (10:57)
[2020-07-05] MEDS ORDERED: NITRO DRIP 25000 MCG/D5W 0 ML IV ONE (10:57)
[2020-07-05] MEDS ORDERED: HEParin (CATH LAB) 2,000 ML IV ONE (10:57)
[2020-07-05] MEDS: NS IV 1000 ML 1,000 ML IV SCH ×2 (12:30→13:45)
[2020-07-05] MEDS ORDERED: ONDANSETRON 4 MG/2 ML (SDV) Z0FRAN ONE (12:38)
--- NOTE | 2020-07-05 13:11 | Progress Note - Cardiology ---
Cardiology SOAP Progress Note Subjective: No cp or palp or syncope No shortness of breath at rest No n/v Objective: I&O/Vital Signs 07/05/20 07/05/20 07/05/20 07/05/20 02:00 02:37 03:00 04:00 Temp 35.0 Pulse 67 73 Resp 13 18 B/P (MAP) 117/49 (71) 139/70 (93) Pulse Ox 96 95 95 O2 Delivery Vapotherm Vapotherm Vapotherm O2 Flow Rate 30.00 30.00 30.00 35.00 35.00 FiO2 40 07/05/20 07/05/20 07/05/20 07/05/20 04:00 05:00 06:00 06:00 Pulse 67 58 69 Resp 14 16 16 B/P (MAP) 119/62 (81) 101/57 (72) 133/67 (89) Pulse Ox 93 96 97 94 O2 Delivery Vapotherm Vapotherm Vapotherm Vapotherm O2 Flow Rate 30.00 30.00 30.00 25.00 35.00 35.00 35.00 30.00 07/05/20 07/05/20 07/05/20 07/05/20 07:00 07:00 07:14 07:30 Temp 36.3 Pulse 65 65 Resp 14 B/P (MAP) 132/71 (91) Pulse Ox 94 94 O2 Delivery Vapotherm Nasal Cannula O2 Flow Rate 25.00 3.00 30.00 07/05/20 07/05/20 07/05/20 07/05/20 08:00 09:00 09:00 09:07 Pulse 70 73 Resp 17 18 B/P (MAP) 143/70 (94) Pulse Ox 94 94 91 O2 Delivery Vapotherm Vapotherm Nasal Cannula Nasal Cannula O2 Flow Rate 25.00 25.00 2.00 2.00 30.00 30.00 07/05/20 07/05/20 07/05/20 07/05/20 10:00 11:00 11:26 12:52 Temp 36.5 Pulse 74 67 66 Resp 17 15 B/P (MAP) 147/74 (98) 109/49 (69) Pulse Ox 89 88 O2 Delivery Nasal Cannula Nasal Cannula O2 Flow Rate 2.00 2.00 07/05/20 00:00 Intake Total 1165 ml Output Total 1675 ml Balance -510 ml Constitutional: AAO x 3, well-developed, well-nourished Respiratory: No accessory muscle use; other (basal coarse crackles and scattered rhonchi) Cardiovascular: regular rate-rhythm, S1 and S2, systolic murmur (2-3/6 ANKIT at card base) Gastrointestional: No tender; soft; No guarding, No rebound; audible bowel sounds Extremities: No clubbing, No cyanosis, No significant edema Neurologic/Psychiatric: oriented x 3, other (moves all limbs equally) Skin: No rash, No ulcerations Results/Procedures: Labs Laboratory Tests 07/05/20 03:45: White Blood Count 5.5, Red Blood Count 3.94L, Hemoglobin 12.3L, Hematocrit 37L, Mean Corpuscular Volume 93, Mean Corpuscular Hemoglobin 31, Mean Corpuscular Hemoglobin Concent 34, Red Cell Distribution Width 12.7, Platelet Count 159, Mean Platelet Volume 11.0, Immature Granulocyte % (Auto) 0, Neutrophils (%) (Auto) 65, Lymphocytes (%) (Auto) 18, Monocytes (%) (Auto) 16H, Eosinophils (%) (Auto) 0, Basophils (%) (Auto) 0, Neutrophils # (Auto) 3.6, Lymphocytes # (Auto) 1.0, Monocytes # (Auto) 0.9, Eosinophils # (Auto) 0.0, Basophils # (Auto) 0.0, Immature Granulocyte # (Auto) 0.0, Sodium Level 136, Potassium Level 3.8, Chloride Level 103, Carbon Dioxide Level 21, Anion Gap 12, Blood Urea Nitrogen 28H, Creatinine 0.89, Estimat Glomerular Filtration Rate > 60, BUN/Creatinine Ratio 31, Glucose Level 142H, Calcium Level 8.4L, Phosphorus Level 2.3, Magnesium Level 1.9 Microbiology 07/03/20 MRSA Screen - Final, Complete MRSA not isolated 07/03/20 Blood Culture - Preliminary, Resulted No growth A/P: Assessment: COVID-19 Hypotension, improved CAD - Elevated troponin: NSTEMI vs type 2 RI due to hypotension - Card cath on 07/05/20: Cor calcium; patent stents in prox LAD, mid LCX, and prox/mid RCA with mild instent restenoses, diffuse mod CAD, approx 60% mid LCX, 60-70% distal RCA; aortic leaflet calcification and diminished excursion (indicative of ); 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
[2020-07-05] MEDS ORDERED: PATIENT MAY USE OWN MEDS, ALL PO SCH (13:15)
--- NOTE | 2020-07-05 13:21 | CARDIAC CATHETERIZATION ---
DATE OF SERVICE: 07/05/2020 CARDIAC CATHETERIZATION REPORT The patient is an 85-year-old gentleman who was admitted with COVID-19 and also had transient chest discomfort and a troponin was subsequently elevated, suggestive of non-ST elevation myocardial infarction. He also reports of prior coronary history, in which he has had multiple coronary stents. Cardiac catheterization was carried out today after having obtained an informed consent. DESCRIPTION OF PROCEDURE: He was brought to the cardiac catheterization laboratory in a fasting state. The right groin was prepared and draped in the usual sterile fashion. Lidocaine 1% was used for local anesthesia. Modified Seldinger technique was used to advance a 5-Andorran sheath in right femoral artery, 5-Andorran JL4 catheter was used for left coronary angiography, 5-Andorran JR4 catheter for right coronary angiography, 5-Andorran pigtail catheter was used to cross into the left ventricle, but we were not able to do so. This was because of considerable aortic stenosis. We used the pigtail catheter for angiography of the aortic root. The pigtail catheter was then removed. Angiography of the right femoral artery was carried out through the sheath and Mynx was used to achieve hemostasis. He tolerated the procedure well. CORONARY ANGIOGRAPHY: Heavy coronary calcification is seen involving the proximal coronary vessels, especially the left anterior descending. There appears to be patent stents in the proximal left anterior descending, mid left circumflex and proximal to mid right coronary. All stents exhibit mild to moderate in-stent restenosis. In addition, there are multiple stenoses of up to 60% in all the vessels. The distal right coronary artery has 60% to 70% stenosis. AORTIC ROOT ANGIOGRAPHY: Aortic root angiography showed that the aortic valve leaflets are heavily calcified. The aortic valve leaflets diminished. There does not appear to be aortic root dilatation. There does appear to be moderate aortic regurgitation. DISCUSSION AND RECOMMENDATIONS: 1. Coronary artery disease as outlined above. There is moderate diffuse disease of all coronary vessels with stenoses of up to approximately 60% at multiple spots. There appeared to be a patent stent in the proximal left anterior descending, mid left circumflex, and proximal and mid right coronary that have up to approximately 40% stenosis at some spots. 2. Calcification and diminished leaflet excursion of the aortic valve leaflets suggestive of aortic stenosis. 3. Moderate aortic regurgitation. DISCUSSION AND RECOMMENDATIONS: Based on results of the study, it appears appropriate to continue a conservative approach for his coronary artery disease. To further evaluate his valvular heart disease, we will carry out echocardiography. Job ID: [id number] DocumentID: [id number] Dictated Date: 07/05/2020 13:01:06 [facility] Date: 07/05/2020 13:21:07 Dictated By: SHANEL YAO MD, MA, FACP, FACC, MTDD
[2020-07-06] VITALS (15 sets, daily range): BP systolic 114–158; BP diastolic 57–88
[2020-07-06] MEDS: IPRATROPIUM INHALER (ATROVENT) 12.9 GM INH SCH ×6 (02:47→22:20)
[2020-07-06] MEDS: RT-ALBUTEROL INHALER HFA (VENTOLIN HFA) 18 GM IH SCH ×6 (02:47→22:19)
[2020-07-06 03:31] LABS: BASOPHILS % (AUTO) 0 % (0-10); EOSINOPHILS % (AUTO) 0 % (0-10); HEMATOCRIT 36 % (40-54); LYMPHOCYTES # (AUTO) 1.1 10^3/uL (1.0-4.0); LYMPHOCYTES % (AUTO) 9 % (12-44); MEAN CORPUSCULAR HEMOGLOBIN 32 pg (25-34); MEAN CORPUSCULAR HGB CONC 34 g/dL (32-36); MEAN CORPUSCULAR VOLUME 93 fL (80-99); MEAN PLATELET VOLUME 11.4 fL (9.0-12.2); MONOCYTES # (AUTO) 1.1 10^3/uL (0.0-1.0); MONOCYTES % (AUTO) 9 % (0-12); NEUTROPHILS # (AUTO) 10.1 10^3/uL (1.8-7.8); NEUTROPHILS % (AUTO) 81 % (42-75); PLATELET COUNT 168 10^3/uL (130-400); WHITE BLOOD COUNT 12.5 10^3/uL (4.3-11.0)
[2020-07-06 03:47] LABS: CHLORIDE 103 MMOL/L (98-107); SODIUM 136 MMOL/L (135-145)
[2020-07-06 03:48] LABS: CALCIUM 8.2 MG/DL (8.5-10.1)
[2020-07-06 03:49] LABS: GLUCOSE 125 MG/DL (70-105)
[2020-07-06 03:50] LABS: CARBON DIOXIDE 24 MMOL/L (21-32)
[2020-07-06 03:52] LABS: PHOSPHORUS 2.9 MG/DL (2.3-4.7)
[2020-07-06 03:53] LABS: GFR ESTIMATED > 60
[2020-07-06 03:54] LABS: BUN/CREATININE RATIO 36
[2020-07-06 03:55] LABS: MAGNESIUM 1.9 MG/DL (1.6-2.4)
[2020-07-06] MEDS: CLOPIDOGREL 75 MG (PLAVIX) TABLET PO SCH (07:29)
[2020-07-06] MEDS: FAMOTIDINE 20MG/2ML IV (PEPCID) IV SCH ×2 (07:29→20:48)
[2020-07-06] MEDS: ZINC SULFATE 220 MG CAPSULE PO SCH (07:29)
[2020-07-06] MEDS: ASPIRIN 81 MG CHEW (CHILDREN'S ASA) PO SCH (07:30)
[2020-07-06] MEDS: MULTIVIT W/MINERALS TAB (THERAGRAN M) PO SCH (07:30)
[2020-07-06] MEDS: ENOXAPARIN 40 MG/0.4 ML (LOVENOX) SYR SQ SCH (07:30)
[2020-07-06] MEDS: guaiFENesin (MUCINEX) 600 MG TAB PO SCH ×2 (07:30→20:48)
[2020-07-06] MEDS: CALCIUM ACETATE 667 MG CAP (PHOSLO) PO SCH ×3 (07:30→17:14)
--- NOTE | 2020-07-06 07:57 | Diagnostic Imaging Report ---
EXAMINATION: Chest radiograph, portable AP view. DATE: 07/06/2020 3:45 AM INDICATION: 85-year-old male, dyspnea. COMPARISON: July 05, 2020. FINDINGS: Heart size and mediastinal contours are unchanged. There is no identified pneumothorax. There is no large pleural effusion. There are streaky opacities in the perihilar regions and upper lobes. This appears more prominent on the left compared to the prior exam. IMPRESSION: 1. There are streaky perihilar and upper lobe opacities which appear more prominent on the left compared to prior exam. This may relate to infiltrate and/or atelectasis. Dictated by: Dictated on workstation # [id number]
[2020-07-06] MEDS ORDERED: CYCLOBENZAPRINE 10 MG (FLEXERIL) TAB PO PRN (11:15)
--- NOTE | 2020-07-06 11:18 | Progress Note - Hospitalist ---
Subjective HPI/CC On Admission Date Seen by Provider: Jul 06, 2020 Time Seen by Provider: 11:30 Subjective/Events-last exam Patient doing well DC catheter today Move to 4th floor Updated on cath results O2 maintained on 2L/min and Vapotherm at night Review of Systems General: Fatigue Pulmonary: Dyspnea, Cough Objective Exam Vital Signs Vital Signs Date Time Temp Pulse Resp B/P (MAP) Pulse Ox O2 Delivery O2 Flow Rate FiO2 07/06/20 19:27 Nasal Cannula 2.00 07/06/20 16:14 36.6 77 18 124/64 (84) 91 07/06/20 07:10 40 Capillary Refill : Less Than 3 Seconds General Appearance: No Apparent Distress, WD/WN, Chronically ill Respiratory: Chest Non Tender, Lungs Clear, Normal Breath Sounds, No Accessory Muscle Use, No Respiratory Distress Cardiovascular: Regular Rate, Rhythm, No Edema, No Gallop, No JVD, No Murmur, Normal Peripheral Pulses Neurologic/Psychiatric: Alert, Oriented x3, No Motor/Sensory Deficits, Normal Mood/Affect Results/Procedures Lab Laboratory Tests 07/06/20 03:16 Patient resulted labs reviewed. 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
--- NOTE | 2020-07-06 12:10 | NUR ---
PATIENT TRANSFERRED TO 4TH FLOOR ROOM 432 IN BED WITHOUT INCIDENT, REPORT GIVEN TO RADHA FOWLER, TO ASSUME CARE OF PATIENT.PERSONAL BELONGINGS SENT WITH PATIENT.
--- NOTE | 2020-07-06 12:29 | NUR ---
RECEIVED REPORT FROM ADI FOWLER IN ICU. PATIENT BEING TRANSFERRED TO ROOM 432. Addendum: 07/06/20 at 1413 by RADHA HERNANDEZ RN RECEIVED PATIENT,ASSUMED CARE.
--- NOTE | 2020-07-06 19:48 | Progress Note - Cardiology ---
Cardiology SOAP Progress Note Subjective: No cp or palp or syncope Shortness of breath improving Malaise improving No swelling No n/v/d Gen weakness present Objective: I&O/Vital Signs 07/06/20 07/06/20 07/06/20 07/06/20 08:00 08:40 09:00 10:00 Pulse 70 69 71 Resp 14 16 23 B/P (MAP) 123/73 (90) 137/71 (93) 158/88 (111) Pulse Ox 93 94 92 93 O2 Delivery Vapotherm Nasal Cannula Vapotherm Vapotherm O2 Flow Rate 25.00 3.00 25.00 25.00 35.00 35.00 35.00 07/06/20 07/06/20 07/06/20 07/06/20 10:26 11:00 11:14 12:14 Temp 35.8 36.5 Pulse 77 74 Resp 14 22 B/P (MAP) 147/74 (98) 127/68 (87) Pulse Ox 93 93 92 O2 Delivery Nasal Cannula Vapotherm Nasal Cannula O2 Flow Rate 4.00 25.00 2.00 35.00 07/06/20 07/06/20 07/06/20 07/06/20 12:51 14:58 16:14 19:27 Temp 36.6 Pulse 77 77 Resp 18 B/P (MAP) 124/64 (84) Pulse Ox 91 O2 Delivery Nasal Cannula Nasal Cannula O2 Flow Rate 2.00 2.50 2.00 07/06/20 00:00 Intake Total 400 ml Output Total 475 ml Balance -75 ml Constitutional: AAO x 3, well-developed, well-nourished Respiratory: No accessory muscle use; other (basal coarse crackles and scattered rhonchi) Cardiovascular: regular rate-rhythm, S1 and S2, systolic murmur (2-3/6 ANKIT at c concepción base) Gastrointestional: No tender; soft; No guarding, No rebound; audible bowel sounds Extremities: No clubbing, No cyanosis, No significant edema Neurologic/Psychiatric: oriented x 3, other (moves all limbs equally) Skin: No rash, No ulcerations Results/Procedures: Labs Laboratory Tests 07/06/20 03:16: White Blood Count 12.5H, Red Blood Count 3.81L, Hemoglobin 12.0L, Hematocrit 36L , Mean Corpuscular Volume 93, Mean Corpuscular Hemoglobin 32, Mean Corpuscular Hemoglobin Concent 34, Red Cell Distribution Width 12.9, Platelet Count 168, Mean Platelet Volume 11.4, Immature Granulocyte % (Auto) 0, Neutrophils (%) (Auto) 81H, Lymphocytes (%) (Auto) 9L, Monocytes (%) (Auto) 9, Eosinophils (%) (Auto) 0, Basophils (%) (Auto) 0, Neutrophils # (Auto) 10.1H, Lymphocytes # (Auto) 1.1, Monocytes # (Auto) 1.1H, Eosinophils # (Auto) 0.0, Basophils # (Auto) 0.0, Immature Granulocyte # (Auto) 0.0, Sodium Level 136, Potassium Level 4.0, Chloride Level 103, Carbon Dioxide Level 24, Anion Gap 9, Blood Urea Nitrogen 32H, Creatinine 0.90, Estimat Glomerular Filtration Rate > 60, BUN/Creatinine Ratio 36, Glucose Level 125H, Calcium Level 8.2L, Phosphorus Level 2.9, Magnesium Level 1.9 Microbiology 07/03/20 MRSA Screen - Final, Complete MRSA not isolated 07/03/20 Blood Culture - Preliminary, Resulted No growth A/P: Assessment: COVID-19 Hypotension, improved CAD - Elevated troponin: type 2 MS due to hypotension - Card cath on 07/05/20: Cor calcium; patent stents in prox LAD, mid LCX, and prox/mid RCA with mild instent restenoses, diffuse mod CAD, approx 60% mid LCX, 60-70% distal RCA; aortic leaflet calcification and diminished excursion (indicative of ); 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 He states he will discuss this with his cardiologists at [place] * [facility] * Monitor labs SHANEL YAO MD FACP [facility] CCDS Jul 06, 2020 19:48
[2020-07-06] MEDS: ROSUVASTATIN 20 MG (CRESTOR) TABLET PO SCH (20:49)
[2020-07-06] MEDS: DORZOLAMIDE/TIMOLOL (COSOPT) 2-0.68% 10 ML BTL OU SCH (20:49)
[2020-07-06] MEDS: BRIMONIDINE 0.2% (ALPHAGAN) OPHTH SOLN 5 ML BTL OU SCH (20:49)
[2020-07-06] MEDS ORDERED: NON-FORMULARY MEDICATION 1 EA EA (Rosuvastatin Calcium 20 MG) PO SCH (21:00)
[2020-07-07] VITALS (21 sets, daily range): BP systolic 101–151; BP diastolic 55–84
[2020-07-07] MEDS: IPRATROPIUM INHALER (ATROVENT) 12.9 GM INH SCH ×6 (03:18→21:15)
[2020-07-07] MEDS: RT-ALBUTEROL INHALER HFA (VENTOLIN HFA) 18 GM IH SCH ×6 (03:18→21:15)
[2020-07-07 06:26] LABS: BASOPHILS % (AUTO) 0 % (0-10); EOSINOPHILS % (AUTO) 0 % (0-10); HEMATOCRIT 42 % (40-54); HEMOGLOBIN 13.7 g/dL (13.3-17.7); LYMPHOCYTES # (AUTO) 1.1 10^3/uL (1.0-4.0); LYMPHOCYTES % (AUTO) 8 % (12-44); MEAN CORPUSCULAR HEMOGLOBIN 31 pg (25-34); MEAN CORPUSCULAR HGB CONC 33 g/dL (32-36); MEAN CORPUSCULAR VOLUME 94 fL (80-99); MEAN PLATELET VOLUME 11.8 fL (9.0-12.2); MONOCYTES % (AUTO) 7 % (0-12); NEUTROPHILS # (AUTO) 11.5 10^3/uL (1.8-7.8); NEUTROPHILS % (AUTO) 84 % (42-75); PLATELET COUNT 180 10^3/uL (130-400); WHITE BLOOD COUNT 13.7 10^3/uL (4.3-11.0)
[2020-07-07] MEDS: MULTIVIT W/MINERALS TAB (THERAGRAN M) PO SCH (06:27)
[2020-07-07 06:38] LABS: ALBUMIN 3.7 GM/DL (3.2-4.5)
[2020-07-07 06:39] LABS: CHLORIDE 102 MMOL/L (98-107); POTASSIUM 4.2 MMOL/L (3.6-5.0); SODIUM 139 MMOL/L (135-145)
[2020-07-07 06:40] LABS: CALCIUM 8.9 MG/DL (8.5-10.1)
[2020-07-07 06:41] LABS: GLUCOSE 111 MG/DL (70-105); TOTAL PROTEIN 6.8 GM/DL (6.4-8.2)
[2020-07-07 06:42] LABS: CARBON DIOXIDE 26 MMOL/L (21-32)
[2020-07-07 06:43] LABS: BILIRUBIN,TOTAL 0.8 MG/DL (0.1-1.0)
[2020-07-07 06:44] LABS: ALKALINE PHOSPHATASE 71 U/L (40-136)
[2020-07-07 06:45] LABS: CREATININE SERUM 0.99 MG/DL (0.60-1.30); GFR ESTIMATED > 60
[2020-07-07 06:46] LABS: BUN/CREATININE RATIO 34
[2020-07-07 06:48] LABS: ALANINE AMINOTRANSFERASE 31 U/L (0-55)
--- NOTE | 2020-07-07 07:07 | NUR ---
PT TRANSFERRED TO 4 FROM 4TH FLOOR VIA BED W/ NURSING STAFF AND RT. BEDSIDE REPORT RECEIVED FROM RED FOWLER. PT PLACED ON BIPAP 18/6 100%FIO2 BY ANGELLA RT. PT PLACED ON MONITORS, VSS. PT A&O, NO C/O AT THIS TIME. WILL CONT TO MONITOR.
[2020-07-07 07:08] LABS: ABG BASE EXCESS 1.1 MMOL/L (-2.5-2.5); ABG OXYGEN SATURATION 95 % (94-100); ABG PCO2 40 MMHG (35-45); ABG PH 7.41 (7.37-7.43); ABG PO2 78 MMHG (79-93); ABG TCO2 26.3 MMOL/L (21.0-31.0)
[2020-07-07 07:10] LABS: ALLENS TEST YES-POS; INSPIRED O2 100%; PATIENT TEMP 37.4; VENTILATOR NO
--- NOTE | 2020-07-07 07:33 | Diagnostic Imaging Report ---
EXAMINATION: Chest 1 view HISTORY: Shortness of breath COMPARISON: Chest radiograph 07/06/2020 FINDINGS: Heart size and pulmonary vasculature are normal. Increasing patchy interstitial and airspace opacities throughout both lungs. No pleural effusion or pneumothorax. The osseous structures are intact. IMPRESSION: 1. Increasing patchy interstitial airspace opacities throughout both lungs compatible with a multifocal pneumonia. Dictated by: Dictated on workstation # [id number]
--- NOTE | 2020-07-07 07:33 | NUR ---
Notified Brandt that pt is transferred back to ICU
[2020-07-07] MEDS: ZINC SULFATE 220 MG CAPSULE PO SCH (08:10)
[2020-07-07] MEDS: CLOPIDOGREL 75 MG (PLAVIX) TABLET PO SCH (08:10)
[2020-07-07] MEDS: ASPIRIN E.C. 81 MG (ECOTRIN) TAB PO SCH (08:11)
[2020-07-07] MEDS: guaiFENesin (MUCINEX) 600 MG TAB PO SCH ×2 (08:11→20:57)
[2020-07-07] MEDS: lisINopril 20 MG (PRINIVIL) TABLET PO SCH (08:11)
[2020-07-07] MEDS: amLODIPine 10 MG (NORVASC) TAB PO SCH (08:11)
[2020-07-07] MEDS: CHLORTHALIDONE 25 MG (HYGROTON) TABLET PO SCH (08:11)
[2020-07-07] MEDS: FAMOTIDINE 20MG/2ML IV (PEPCID) IV SCH ×2 (08:11→20:56)
[2020-07-07] MEDS: DORZOLAMIDE/TIMOLOL (COSOPT) 2-0.68% 10 ML BTL OU SCH ×2 (08:13→20:59)
[2020-07-07] MEDS: BRIMONIDINE 0.2% (ALPHAGAN) OPHTH SOLN 5 ML BTL OU SCH ×2 (08:13→21:00)
[2020-07-07] MEDS: CALCIUM ACETATE 667 MG CAP (PHOSLO) PO SCH ×3 (08:17→16:48)
[2020-07-07] MEDS ORDERED: NON-FORMULARY MEDICATION 1 EA EA (Multivit-Min/FA/Lycopene/Lut (Centrum Silver Tablet) 1 E PO SCH (09:00)
[2020-07-07] MEDS ORDERED: FUROSEMIDE 40 MG/4 ML INJ (LASIX) IVP ONE (10:30)
--- NOTE | 2020-07-07 10:30 | Pulmonary Progress Note ---
Subjective Time Seen by a Provider: 10:25 Subjective/Events-last exam PT transferred to ICU this morning secondary to worsening respiratory distress. Sepsis Event Evaluation Height, Weight, BMI Height: '" Weight: lbs. oz. kg; 29.27 BMI Method: Exam Exam Vital Signs Date Time Temp Pulse Resp B/P (MAP) Pulse Ox O2 Delivery O2 Flow Rate FiO2 07/07/20 08:00 74 20 131/71 (91) 98 NIV Bilevel 100.00 07/07/20 07:30 36.9 NIV Bilevel 100.00 07/07/20 07:13 75 18 99 100.00 07/07/20 07:00 91 148/83 (104) NIV Bilevel 100.00 07/07/20 07:00 NIV Bilevel 100.00 07/07/20 06:52 95 Vapotherm 40.00 100 07/07/20 06:51 94 07/07/20 06:49 90 Vapotherm 30.00 70 07/07/20 04:38 36.7 76 24 135/71 (92) 91 Vapotherm 30.00 70.00 07/07/20 03:39 92 Vapotherm 25.00 65 07/07/20 01:00 69 07/07/20 00:55 36.2 82 22 151/80 (103) 90 Vapotherm 30.00 55.00 07/06/20 22:20 91 Venturi Mask 25.00 45 07/06/20 20:48 92 Nasal Cannula 3.00 07/06/20 20:23 91 Nasal Cannula 4.00 07/06/20 20:15 36.4 85 18 135/65 (88) 88 Nasal Cannula 2.50 07/06/20 19:27 Nasal Cannula 2.00 07/06/20 19:00 94 07/06/20 16:14 36.6 77 18 124/64 (84) 91 2.50 07/06/20 14:58 Nasal Cannula 2.00 07/06/20 12:51 77 07/06/20 12:14 36.5 74 22 127/68 (87) 92 Nasal Cannula 2.00 07/06/20 11:14 35.8 07/06/20 11:00 77 14 147/74 (98) 93 Vapotherm 25.00 35.00 07/06/20 10:26 93 Nasal Cannula 4.00 I & O 07/07/20 07:00 Intake Total 640 ml Output Total 1250 ml Balance -610 ml Height & Weight Height: '" Weight: lbs. oz. kg; 29.27 BMI Method: General Appearance: WD/WN, Chronically ill, Moderate Distress HEENT: PERRL/EOMI, TMs Normal Neck: Full Range of Motion, Normal Inspection, Non Tender Respiratory: Chest Non Tender, Accessory Muscle Use, Crackles, Decreased Breath Sounds, Respiratory Distress Cardiovascular: Regular Rate, Rhythm, No Edema, No Gallop, No JVD, No Murmur, Normal Peripheral Pulses Capillary Refill: Less Than 3 Seconds Gastrointestinal: normal bowel sounds, non tender, soft Extremity: Normal Capillary Refill, Normal Inspection Neurologic/Psychiatric: Alert, No Motor/Sensory Deficits, Normal Mood/Affect Skin: Normal Color, Warm/Dry Lymphatic: No Adenopathy Results Lab Laboratory Tests 07/06/20 03:16 07/07/20 06:14 Assessment/Plan Assessment/Plan Acute respiratory failure secondary to COVID 19 severe ARDS - Acute worsening transferred to ICU this morning. -Pt is only on ppx dose lovenox -Check CTA of chest and bilteral dopplers. 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
[2020-07-07] MEDS ORDERED: CATHETER FLUSH 10 ML SYR IV PRN (10:45)
[2020-07-07] MEDS ORDERED: HOLD METFORMIN - RECEIVED CONTRAST 20 ML VIAL IV SCH (10:45)
[2020-07-07] MEDS ORDERED: IOHEXOL 350 MG/ML 100 ML (OMNIPAQUE 350) VIAL IV ONE (10:45)
[2020-07-07] MEDS ORDERED: NS 100 ML (IVPB) BAG IV ONE (10:45)
[2020-07-07] MEDS ORDERED: PIPERACILLIN/TAZOBACTAM (BULK) 4.5 GM in NS (IVPB) 100 ML IV NR (11:00)
[2020-07-07] MEDS: ENOXAPARIN 40 MG/0.4 ML (LOVENOX) SYR SQ SCH (11:08)
--- NOTE | 2020-07-07 11:48 | NUR ---
PTS DAUGHTER MOE UPDATED ON PT.
--- NOTE | 2020-07-07 12:31 | Cardiology Progress Note ---
Subjective Date Seen by Provider: Jul 07, 2020 Time Seen by Provider: 12:28 Subjective/Events-last exam Patient had worsening of her shortness of breath requiring BiPAP and transferred back to the intensive care unit. Review of Systems General: Fatigue, Malaise Pulmonary: Dyspnea Objective-Cardiology Exam Last Set of Vital Signs Vital Signs 07/07/20 07/07/20 07/07/20 08:00 11:00 11:11 Temp 36.6 Pulse 68 Resp 20 B/P (MAP) 109/60 (76) Pulse Ox 94 O2 Delivery NIV Bilevel O2 Flow Rate 70.00 FiO2 100 Capillary Refill : Less Than 3 Seconds I&O Intake and Output 07/07/20 00:00 Intake Total 590 ml Output Total 920 ml Balance -330 ml Intake Oral 590 ml Output Urine Total 920 ml General: Alert, Cooperative HEENT: Atraumatic Neck: Supple Lungs: Normal Air Movement Heart: Normal S1, Normal S2 Abdomen: Normal Bowel Sounds Extremities: No Clubbing Skin: No Rashes Results Lab Laboratory Tests 07/07/20 06:14 A/P-Cardiology Admission Diagnosis Acute respiratory failure COVID-19 pneumonia Coronary artery disease Aortic valve stenosis Assessment/Plan Acute respiratory failure, worsening again and transferred to ICU, started on BiPAP, managed by Dr. Veras COVID-19 pneumonia, worsening today, transferred to intensive care unit Coronary artery disease, type II myocardial infarction, known to have history of coronary artery disease, cardiac catheterization done on July 05, [address] Arevalo showing patent stent in the proximal LAD, mid circumflex and proximal and midright coronary artery with mild in-stent restenosis. Had 60 percent mid circumflex lesion, 6070 percent distal right coronary artery stenosis, moderate severe aortic regurgitation Echo showed severe aortic stenosis, valve area 0.7 cm, moderate aortic regurgitation, EF 50-55 percent done in June 2019 Borderline hypotension, better at this time JENI SILVA MD Jul 07, 2020 12:31
--- NOTE | 2020-07-07 12:43 | Diagnostic Imaging Report ---
EXAMINATION: CT angiography of the chest. TECHNIQUE: Contrast enhanced thin section helical images were obtained through the chest with intravenous contrast timed for the optimal opacification of the arterial structures per CTA protocol. Post-processing, reconstructions and interpretation of angiographic images of the vessels was performed. 3D MIP reconstructions were performed and reviewed. All CT scans use one or more of the following dose optimizing techniques: automated exposure control, MA and/or KvP adjustment based on a patient size and exam type, or iterative reconstruction. HISTORY: Chest pain, COVID 19 COMPARISON: None available. FINDINGS: There is no pulmonary embolism. There are extensive areas of groundglass and consolidation centrally within the lungs with small bilateral pleural effusions and overlying atelectasis. No pneumothorax. There is no axillary or supraclavicular lymphadenopathy. There is no mediastinal lymphadenopathy. Left ventricle is dilated. There are severe coronary artery calcifications. No pericardial effusion. Aorta is normal in caliber. Limited views of the upper abdomen are unremarkable. There are no suspicious osseus lesions. IMPRESSION: 1. No pulmonary embolism. 2. Extensive groundglass consolidation centrally within the lungs with small pleural effusions, and dilated left heart. Also these findings may be related to reported history of COVID 19, they are more concerning for pulmonary edema. Dictated by: Dictated on workstation # [id number]
--- NOTE | 2020-07-07 15:07 | Diagnostic Imaging Report ---
PROCEDURE: US Venous Lower Ext Paramjit. TECHNIQUE: Multiple real-time grayscale images were obtained over the lower extremities in various projections, bilaterally. Additional duplex Doppler and color Doppler images were also obtained. INDICATION: COVID positive. Elevated troponins. Leg pain and swelling. FINDINGS: Color Doppler imaging shows normal blood flow throughout the lower extremity venous system bilaterally. Calf compression showed normal augmentation of flow at the popliteal level. No evidence of popliteal cyst. IMPRESSION: No evidence of venous thrombosis within the lower extremities. Dictated by: Dictated on workstation # [id number]
[2020-07-07] MEDS: PIPERACILLIN/TAZOBACTAM (BULK) 4.5 GM in NS (IVPB) 100 ML IV SCH (16:49)
[2020-07-07] MEDS: ROSUVASTATIN 20 MG (CRESTOR) TABLET PO SCH (20:57)
[2020-07-08] VITALS (19 sets, daily range): BP systolic 101–129; BP diastolic 50–84
[2020-07-08] MEDS: PIPERACILLIN/TAZOBACTAM (BULK) 4.5 GM in NS (IVPB) 100 ML IV SCH ×3 (00:46→16:56)
[2020-07-08] MEDS: RT-ALBUTEROL INHALER HFA (VENTOLIN HFA) 18 GM IH SCH ×6 (01:34→21:32)
[2020-07-08] MEDS: IPRATROPIUM INHALER (ATROVENT) 12.9 GM INH SCH ×6 (01:34→21:32)
[2020-07-08 03:38] LABS: BASOPHILS % (AUTO) 0 % (0-10); EOSINOPHILS % (AUTO) 0 % (0-10); HEMATOCRIT 40 % (40-54); LYMPHOCYTES # (AUTO) 0.5 10^3/uL (1.0-4.0); LYMPHOCYTES % (AUTO) 5 % (12-44); MEAN CORPUSCULAR HEMOGLOBIN 31 pg (25-34); MEAN CORPUSCULAR HGB CONC 33 g/dL (32-36); MEAN CORPUSCULAR VOLUME 95 fL (80-99); MEAN PLATELET VOLUME 12.2 fL (9.0-12.2); MONOCYTES # (AUTO) 0.6 10^3/uL (0.0-1.0); MONOCYTES % (AUTO) 6 % (0-12); NEUTROPHILS # (AUTO) 9.7 10^3/uL (1.8-7.8); NEUTROPHILS % (AUTO) 89 % (42-75); PLATELET COUNT 175 10^3/uL (130-400)
[2020-07-08 03:50] LABS: CHLORIDE 97 MMOL/L (98-107); POTASSIUM 3.9 MMOL/L (3.6-5.0); SODIUM 139 MMOL/L (135-145)
[2020-07-08 03:51] LABS: CALCIUM 9.3 MG/DL (8.5-10.1)
[2020-07-08 03:52] LABS: GLUCOSE 105 MG/DL (70-105)
[2020-07-08 03:54] LABS: CARBON DIOXIDE 29 MMOL/L (21-32)
[2020-07-08 03:56] LABS: CREATININE SERUM 1.14 MG/DL (0.60-1.30); GFR ESTIMATED > 60; PHOSPHORUS 4.1 MG/DL (2.3-4.7)
[2020-07-08 03:57] LABS: BUN/CREATININE RATIO 34
[2020-07-08 03:58] LABS: MAGNESIUM 2.3 MG/DL (1.6-2.4)
[2020-07-08 04:02] LABS: BAND NEUTROPHILS 5 %; LYMPHOCYTES % (MANUAL) 10 %; MONOCYTES % (MANUAL) 5 %; NEUTROPHILS % (MANUAL) 80 %
[2020-07-08 04:03] LABS: RBC MORPH NORMAL
--- NOTE | 2020-07-08 05:14 | Pulmonary Progress Note ---
Subjective Time Seen by a Provider: 05:10 Subjective/Events-last exam Pt is still requiring Vapotherm. Sepsis Event Evaluation Height, Weight, BMI Height: '" Weight: lbs. oz. kg; 29.27 BMI Method: Exam Exam Vital Signs Date Time Temp Pulse Resp B/P (MAP) Pulse Ox O2 Delivery O2 Flow Rate FiO2 07/08/20 03:00 70 21 128/68 (95) 95 Vapotherm 35.00 65.00 07/08/20 02:23 Vapotherm 35.00 65.00 07/08/20 02:00 71 26 120/61 (82) 96 Vapotherm 35.00 70.00 07/08/20 01:35 97 Vapotherm 35.00 65 07/08/20 01:34 97 Vapotherm 35.00 65 07/08/20 01:00 65 23 118/69 (93) 96 Vapotherm 35.00 70.00 07/08/20 00:48 36.6 Vapotherm 35.00 70.00 07/08/20 00:00 58 16 111/61 (84) 97 Vapotherm 40.00 80.00 07/07/20 23:00 62 101/55 (70) 93 Vapotherm 40.00 80.00 07/07/20 22:00 61 30 111/62 (78) 93 Vapotherm 40.00 80.00 07/07/20 21:16 97 Vapotherm 30.00 80 07/07/20 21:15 97 Vapotherm 30.00 80 07/07/20 21:00 65 12 118/60 (79) 97 Vapotherm 40.00 80.00 07/07/20 21:00 Vapotherm 40.00 80 07/07/20 20:00 65 20 111/57 (75) 94 Vapotherm 40.00 80.00 07/07/20 19:47 36.4 07/07/20 19:15 Vapotherm 40.00 80.00 07/07/20 19:00 66 07/07/20 19:00 66 16 119/62 (81) 97 Vapotherm 40.00 90.00 07/07/20 18:27 99 Vapotherm 30.00 90 07/07/20 18:26 90 Vapotherm 30.00 90 07/07/20 18:00 63 22 110/65 (80) 97 Vapotherm 40.00 90.00 07/07/20 17:00 70 29 132/84 (100) 100 Vapotherm 40.00 90.00 07/07/20 16:49 Vapotherm 40.00 90.00 07/07/20 16:05 36.0 07/07/20 16:00 64 50 116/67 (83) 96 NIV Bilevel 40.00 07/07/20 15:00 62 22 117/60 (79) 91 NIV Bilevel 40.00 07/07/20 14:38 NIV Bilevel 40.00 07/07/20 14:35 96 50.00 07/07/20 14:32 71 24 96 65.00 07/07/20 14:00 62 19 110/59 (76) 97 NIV Bilevel 65.00 07/07/20 13:00 68 46 115/63 (80) 94 NIV Bilevel 65.00 07/07/20 12:52 NIV Bilevel 65.00 07/07/20 12:38 70 07/07/20 12:00 67 14 106/59 (75) 94 NIV Bilevel 70.00 07/07/20 11:11 36.6 07/07/20 11:00 68 20 109/60 (76) 94 NIV Bilevel 70.00 07/07/20 10:51 NIV Bilevel 70.00 07/07/20 10:41 70 18 97 70.00 07/07/20 10:00 69 16 108/61 (77) 98 NIV Bilevel 100.00 07/07/20 09:00 76 13 109/57 (74) 99 NIV Bilevel 100.00 07/07/20 08:00 NIV Bilevel 100 07/07/20 08:00 74 20 131/71 (91) 98 NIV Bilevel 100.00 07/07/20 07:30 36.9 NIV Bilevel 100.00 07/07/20 07:13 75 18 99 100.00 07/07/20 07:00 91 148/83 (104) NIV Bilevel 100.00 07/07/20 07:00 NIV Bilevel 100.00 07/07/20 06:52 95 Vapotherm 40.00 100 07/07/20 06:51 94 07/07/20 06:49 90 Vapotherm 30.00 70 I & O 07/08/20 07:00 Intake Total 490 ml Output Total 2975 ml Balance -2485 ml Height & Weight Height: '" Weight: lbs. oz. kg; 29.27 BMI Method: General Appearance: WD/WN, Chronically ill, Moderate Distress HEENT: PERRL/EOMI, TMs Normal Neck: Full Range of Motion, Normal Inspection, Non Tender Respiratory: Chest Non Tender, Accessory Muscle Use, Crackles, Decreased Breath Sounds, Respiratory Distress Cardiovascular: Regular Rate, Rhythm, No Edema, No Gallop, No JVD, No Murmur, Normal Peripheral Pulses Capillary Refill: Less Than 3 Seconds Gastrointestinal: normal bowel sounds, non tender, soft Extremity: Normal Capillary Refill, Normal Inspection Neurologic/Psychiatric: Alert, No Motor/Sensory Deficits, Normal Mood/Affect Skin: Normal Color, Warm/Dry Lymphatic: No Adenopathy Results Lab Laboratory Tests 07/07/20 06:14 07/08/20 03:12 Assessment/Plan Assessment/Plan Acute respiratory failure secondary to COVID 19 severe ARDS - Acute worsening transferred to ICU this morning. -Pt is only on ppx dose lovenox -Check CTA of chest and bilteral dopplers. 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
[2020-07-08] MEDS: MULTIVIT W/MINERALS TAB (THERAGRAN M) PO SCH (06:10)
[2020-07-08] MEDS: MAGNESIUM 1 GM/100 ML IVPB 100 ML IV SCH (06:11)
[2020-07-08] MEDS: KCL 20 MEQ TAB (K-DUR) PO SCH ×3 (06:11→16:56)
[2020-07-08] MEDS: POTASSIUM CL 10MEQ/50ML IVPB 50 ML IV SCH (06:11)
--- NOTE | 2020-07-08 07:33 | Diagnostic Imaging Report ---
Clinical indication: Patient with respiratory distress. COVID positive. Exam: Portable chest x-ray upright view. Comparisons: Chest x-ray dated 07/07/2020. Findings: There is interval improved aeration of both lungs with residual mild to moderate patchy airspace infiltrates seen bilaterally. There is no pleural effusion or pneumothorax. Cardiac silhouette and pulmonary vasculature is within normal limits for portable projection. The remainder of this exam shows no significant interval change compared to the prior study of comparison. IMPRESSION: There is interval improved aeration of both lungs with residual mild to moderate patchy lung infiltrates remaining. Report was faxed to Feliberto/RN Infection Control by cindy at 7:32AM. Dictated by: Dictated on workstation # [id number]
[2020-07-08] MEDS: amLODIPine 10 MG (NORVASC) TAB PO SCH (07:51)
[2020-07-08] MEDS: CHLORTHALIDONE 25 MG (HYGROTON) TABLET PO SCH (07:52)
[2020-07-08] MEDS: ZINC SULFATE 220 MG CAPSULE PO SCH (07:52)
[2020-07-08] MEDS: guaiFENesin (MUCINEX) 600 MG TAB PO SCH ×2 (07:52→21:30)
[2020-07-08] MEDS: CALCIUM ACETATE 667 MG CAP (PHOSLO) PO SCH ×3 (07:52→16:56)
[2020-07-08] MEDS: FAMOTIDINE 20MG/2ML IV (PEPCID) IV SCH (07:52)
[2020-07-08] MEDS: ASPIRIN E.C. 81 MG (ECOTRIN) TAB PO SCH (07:52)
[2020-07-08] MEDS: lisINopril 20 MG (PRINIVIL) TABLET PO SCH (07:52)
[2020-07-08] MEDS: CLOPIDOGREL 75 MG (PLAVIX) TABLET PO SCH (07:53)
[2020-07-08] MEDS: FUROSEMIDE 40 MG/4 ML INJ (LASIX) IVP SCH ×2 (07:53→21:30)
[2020-07-08] MEDS: ENOXAPARIN 40 MG/0.4 ML (LOVENOX) SYR SQ SCH (07:53)
[2020-07-08] MEDS: DORZOLAMIDE/TIMOLOL (COSOPT) 2-0.68% 10 ML BTL OU SCH ×2 (07:55→21:31)
[2020-07-08] MEDS: BRIMONIDINE 0.2% (ALPHAGAN) OPHTH SOLN 5 ML BTL OU SCH ×2 (07:56→21:30)
--- NOTE | 2020-07-08 09:10 | Cardiology Progress Note ---
Subjective Date Seen by Provider: Jul 08, 2020 Time Seen by Provider: 09:09 Subjective/Events-last exam patient was seen at bedside laying down comfortably, reporting improvement in his symptoms, still on Vapotherm Review of Systems General: No Chills, No Night Sweats; Fatigue, Malaise; No Appetite, No Other HEENT: No Head Aches, No Visual Changes, No Eye Pain, No Ear Pain, No Dysphasia, No Sinus Congestion, No Post Nasal Drip, No Sore Throat, No Other Pulmonary: Dyspnea; No Cough, No Pleuritic Chest Pain, No Other Cardiovascular: No: Chest Pain, Palpitations, Orthopnea, Paroxysmal Noc. Dyspnea, Edema, Lt Headedness, Other Objective-Cardiology Exam Last Set of Vital Signs Vital Signs 07/08/20 07/08/20 07/08/20 06:00 07:19 07:51 Temp 36.8 Pulse 70 Resp 19 B/P (MAP) 129/67 (87) Pulse Ox 94 O2 Delivery Vapotherm O2 Flow Rate 35.00 55.00 FiO2 55 Capillary Refill : Less Than 3 Seconds I&O Intake and Output 07/08/20 00:00 Intake Total 690 ml Output Total 3450 ml Balance -2760 ml Intake Oral 450 ml IV Total 240 ml Output Urine Total 3450 ml General: Alert, Oriented X3, Cooperative HEENT: Atraumatic Neck: Supple Lungs: Normal Air Movement Heart: Normal S1, Normal S2, Other (systolic murmur at the left sternal border) Abdomen: Normal Bowel Sounds Extremities: No Clubbing Skin: No Rashes Neuro: Normal Speech Psych/Mental Status: Mental Status NL, Mood NL Results Lab Laboratory Tests 07/08/20 03:12 A/P-Cardiology Admission Diagnosis Acute respiratory failure COVID-19 pneumonia Coronary artery disease Aortic valve stenosis Assessment/Plan Status post acute respiratory failure, on Vapotherm, reporting improvement, managed by Dr. Veras COVJUAN-Fede pneumonia, worsening today, transferred to intensive care unit Coronary artery disease, type II myocardial infarction, known to have history of coronary artery disease, cardiac catheterization done on July 05, [address] Arevalo showing patent stent in the proximal LAD, mid circumflex and proximal and midright coronary artery with mild in-stent restenosis. Had 60 percent mid circumflex lesion, 6070 percent distal right coronary artery stenosis, moderate severe aortic regurgitation Echo showed severe aortic stenosis, valve area 0.7 cm, moderate aortic regurgitation, EF 50-55 percent done in June 2019, conservative management for now, consideration for valve replacement procedure Borderline hypotension, better at this time JENI SILVA MD Jul 08, 2020 09:10
[2020-07-08] MEDS: ROSUVASTATIN 20 MG (CRESTOR) TABLET PO SCH (21:30)
[2020-07-09] VITALS (12 sets, daily range): BP systolic 101–127; BP diastolic 51–78
[2020-07-09] MEDS: PIPERACILLIN/TAZOBACTAM (BULK) 4.5 GM in NS (IVPB) 100 ML IV SCH ×3 (00:19→17:43)
[2020-07-09] MEDS: IPRATROPIUM INHALER (ATROVENT) 12.9 GM INH SCH ×6 (02:18→22:41)
[2020-07-09] MEDS: RT-ALBUTEROL INHALER HFA (VENTOLIN HFA) 18 GM IH SCH ×6 (02:18→22:41)
[2020-07-09 03:09] LABS: BASOPHILS % (AUTO) 0 % (0-10); EOSINOPHILS % (AUTO) 0 % (0-10); HEMATOCRIT 37 % (40-54); HEMOGLOBIN 12.3 g/dL (13.3-17.7); LYMPHOCYTES # (AUTO) 0.7 10^3/uL (1.0-4.0); LYMPHOCYTES % (AUTO) 7 % (12-44); MEAN CORPUSCULAR HEMOGLOBIN 31 pg (25-34); MEAN CORPUSCULAR HGB CONC 33 g/dL (32-36); MEAN CORPUSCULAR VOLUME 93 fL (80-99); MONOCYTES # (AUTO) 0.7 10^3/uL (0.0-1.0); MONOCYTES % (AUTO) 7 % (0-12); NEUTROPHILS # (AUTO) 8.6 10^3/uL (1.8-7.8); NEUTROPHILS % (AUTO) 85 % (42-75); PLATELET COUNT 186 10^3/uL (130-400); WHITE BLOOD COUNT 10.2 10^3/uL (4.3-11.0)
[2020-07-09 03:27] LABS: POTASSIUM 3.8 MMOL/L (3.6-5.0)
[2020-07-09 03:28] LABS: CALCIUM 8.9 MG/DL (8.5-10.1)
[2020-07-09 03:32] LABS: CREATININE SERUM 1.32 MG/DL (0.60-1.30); PHOSPHORUS 4.6 MG/DL (2.3-4.7)
[2020-07-09 03:35] LABS: MAGNESIUM 2.3 MG/DL (1.6-2.4)
[2020-07-09] MEDS: KCL 20 MEQ TAB (K-DUR) PO SCH (05:04)
[2020-07-09] MEDS: POTASSIUM CL 10MEQ/50ML IVPB 50 ML IV SCH (05:04)
[2020-07-09] MEDS: MAGNESIUM 1 GM/100 ML IVPB 100 ML IV SCH (05:04)
--- NOTE | 2020-07-09 05:27 | Pulmonary Progress Note ---
Subjective Time Seen by a Provider: 05:21 Subjective/Events-last exam Pt is on Vapotherm at 40% oxygen. Sepsis Event Evaluation Height, Weight, BMI Height: '" Weight: lbs. oz. kg; 29.27 BMI Method: Exam Exam Vital Signs Date Time Temp Pulse Resp B/P (MAP) Pulse Ox O2 Delivery O2 Flow Rate FiO2 07/09/20 05:00 69 122/61 (81) 93 Vapotherm 25.00 40.00 07/09/20 04:52 Vapotherm 25.00 40.00 07/09/20 04:00 70 22 111/65 (80) 89 Vapotherm 30.00 40.00 07/09/20 03:00 67 14 107/58 (74) 91 Vapotherm 30.00 40.00 07/09/20 02:18 93 Vapotherm 30.00 40 07/09/20 02:18 96 30.00 50 07/09/20 02:00 63 17 103/51 (68) 92 Vapotherm 30.00 40.00 07/09/20 01:00 64 07/09/20 01:00 64 21 101/63 (76) 90 Vapotherm 30.00 40.00 07/09/20 00:20 36.3 30.00 40.00 07/09/20 00:00 69 20 110/55 (73) 91 Vapotherm 30.00 50.00 07/08/20 23:00 67 20 102/59 (73) 92 Vapotherm 30.00 50.00 07/08/20 22:53 30.00 50.00 07/08/20 22:00 67 19 111/60 (77) 94 Vapotherm 35.00 50.00 07/08/20 21:33 96 30.00 50 07/08/20 21:33 97 Vapotherm 35.00 55 07/08/20 21:29 36.6 Vapotherm 30.00 50.00 07/08/20 21:00 Vapotherm 35.00 55 07/08/20 21:00 65 16 103/50 (67) 91 Vapotherm 35.00 55.00 07/08/20 20:00 68 21 117/59 (78) 95 Vapotherm 35.00 55.00 07/08/20 19:00 70 1/26/21 19:00 70 18 112/59 (76) 98 Vapotherm 35.00 55.00 07/08/20 18:28 97 Vapotherm 35.00 55 07/08/20 16:00 70 20 114/63 (80) 96 Vapotherm 35.00 55.00 07/08/20 15:17 35.8 07/08/20 14:14 95 Vapotherm 35.00 55 07/08/20 13:28 Vapotherm 35.00 55.00 07/08/20 13:00 66 07/08/20 12:02 36.3 07/08/20 12:00 63 16 106/84 (91) 98 Vapotherm 40.00 100.00 07/08/20 11:00 68 33 108/52 (70) 99 Vapotherm 40.00 100.00 07/08/20 10:49 97 Vapotherm 40.00 100 07/08/20 10:18 Vapotherm 40.00 100.00 07/08/20 10:15 Vapotherm 40.00 100.00 07/08/20 10:00 64 24 111/56 (74) 91 Vapotherm 40.00 55.00 07/08/20 09:16 Vapotherm 40.00 55.00 07/08/20 09:00 76 27 106/74 (85) 92 Vapotherm 35.00 55.00 07/08/20 08:00 88 19 129/67 (87) 93 Vapotherm 35.00 55.00 07/08/20 08:00 Vapotherm 35.00 55 07/08/20 07:51 36.8 Vapotherm 35.00 55.00 07/08/20 07:19 94 Vapotherm 35.00 55 07/08/20 07:00 72 17 122/62 (82) 92 Vapotherm 35.00 55.00 07/08/20 06:42 71 07/08/20 06:13 Vapotherm 35.00 55.00 07/08/20 06:00 70 19 129/67 (87) 96 Vapotherm 35.00 65.00 I & O 07/09/20 07:00 Intake Total 1440 ml Output Total 3925 ml Balance -2485 ml Height & Weight Height: '" Weight: lbs. oz. kg; 29.27 BMI Method: General Appearance: WD/WN, Chronically ill, Mild Distress HEENT: PERRL/EOMI, TMs Normal Neck: Full Range of Motion, Normal Inspection, Non Tender Respiratory: Chest Non Tender, Accessory Muscle Use, Crackles, Decreased Breath Sounds, Respiratory Distress Cardiovascular: Regular Rate, Rhythm, No Edema, No Gallop, No JVD, No Murmur, Normal Peripheral Pulses Capillary Refill: Less Than 3 Seconds Gastrointestinal: normal bowel sounds, non tender, soft Extremity: Normal Capillary Refill, Normal Inspection Neurologic/Psychiatric: Alert, No Motor/Sensory Deficits, Normal Mood/Affect Skin: Normal Color, Warm/Dry Lymphatic: No Adenopathy Results Lab Laboratory Tests 07/07/20 06:14 07/08/20 03:12 07/09/20 02:43 Assessment/Plan Assessment/Plan Acute respiratory failure secondary to COVID 19 severe ARDS - Acute worsening transferred to ICU this morning. -Pt is only on ppx dose lovenox -Check CTA of chest and bilteral dopplers. 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
--- NOTE | 2020-07-09 08:15 | NUR ---
Pt transferred to [facility] with RN. PT a/ox4 VSS, placed on 15LNRB for transport and back onto Vapotherm in new room at 15L 30%. Report given to Princess FOWLER.
--- NOTE | 2020-07-09 08:46 | Diagnostic Imaging Report ---
INDICATION: COVID patient. COMPARISON: 07/08/2020 FINDINGS: Improvements in bilateral infiltrates present. The heart size stable. There do appear to be small amounts of pleural fluid bilaterally. IMPRESSION: Improvements in bilateral infiltrates. No adverse development. Report was faxed to Feliberto/RN Infection Control by cindy at 8:47am. Dictated by: Dictated on workstation # [id number]
[2020-07-09] MEDS: BRIMONIDINE 0.2% (ALPHAGAN) OPHTH SOLN 5 ML BTL OU SCH ×2 (09:00→20:10)
[2020-07-09] MEDS: amLODIPine 10 MG (NORVASC) TAB PO SCH (09:10)
[2020-07-09] MEDS: DOCUSATE SODIUM 100 MG (COLACE) CAP PO SCH ×2 (09:10→20:10)
[2020-07-09] MEDS: ZINC SULFATE 220 MG CAPSULE PO SCH (09:10)
[2020-07-09] MEDS: CLOPIDOGREL 75 MG (PLAVIX) TABLET PO SCH (09:10)
[2020-07-09] MEDS: CALCIUM ACETATE 667 MG CAP (PHOSLO) PO SCH ×3 (09:10→17:44)
[2020-07-09] MEDS: MULTIVIT W/MINERALS TAB (THERAGRAN M) PO SCH (09:11)
[2020-07-09] MEDS: ASPIRIN E.C. 81 MG (ECOTRIN) TAB PO SCH (09:11)
[2020-07-09] MEDS: FAMOTIDINE 20MG/2ML IV (PEPCID) IV SCH (09:12)
[2020-07-09] MEDS: guaiFENesin (MUCINEX) 600 MG TAB PO SCH ×2 (09:13→20:10)
[2020-07-09] MEDS: CHLORTHALIDONE 25 MG (HYGROTON) TABLET PO SCH (09:22)
[2020-07-09] MEDS: DORZOLAMIDE/TIMOLOL (COSOPT) 2-0.68% 10 ML BTL OU SCH ×2 (09:28→20:11)
--- NOTE | 2020-07-09 11:56 | Progress Note - Hospitalist ---
Subjective HPI/CC On Admission Date Seen by Provider: Jul 09, 2020 Time Seen by Provider: 11:30 Subjective/Events-last exam Pt transferred to room 432 Maintained on Vapotherm of 40% Denies any significant pain Overall feels really good Will discontinue catheter tomorrow Review of Systems General: Fatigue, Malaise Objective Exam Vital Signs Vital Signs Date Time Temp Pulse Resp B/P (MAP) Pulse Ox O2 Delivery O2 Flow Rate FiO2 07/10/20 04:48 37.0 75 22 132/60 (84) 94 Vapotherm 15.00 30.00 07/09/20 22:43 30 Capillary Refill : Less Than 3 Seconds General Appearance: No Apparent Distress, WD/WN, Chronically ill Respiratory: Chest Non Tender, Lungs Clear, Normal Breath Sounds, No Accessory Muscle Use, No Respiratory Distress, Decreased Breath Sounds Cardiovascular: Regular Rate, Rhythm, No Edema, No Gallop, No JVD, No Murmur, Normal Peripheral Pulses Neurologic/Psychiatric: Alert, Oriented x3, No Motor/Sensory Deficits, Normal Mood/Affect Results/Procedures Lab Patient resulted labs reviewed. 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
[2020-07-09] MEDS: ENOXAPARIN 40 MG/0.4 ML (LOVENOX) SYR SQ SCH (12:30)
--- NOTE | 2020-07-09 14:52 | Cardiology Progress Note ---
Subjective Date Seen by Provider: Jul 09, 2020 Time Seen by Provider: 14:50 Subjective/Events-last exam Patient sitting up in chair, no new complaints. Objective-Cardiology Exam Last Set of Vital Signs Vital Signs 07/09/20 07/09/20 15:45 16:24 Temp 36.2 Pulse 72 Resp 20 B/P (MAP) 121/62 (81) Pulse Ox 93 O2 Delivery Vapotherm O2 Flow Rate 15.00 30.00 FiO2 30 Capillary Refill : Less Than 3 Seconds I&O Intake and Output 07/08/20 23:59 Intake Total 1340 ml Output Total 3050 ml Balance -1710 ml Intake Oral 980 ml IV Total 360 ml Output Urine Total 3050 ml General: Alert, Oriented X3 HEENT: Atraumatic Heart: Regular Rate Results Lab Laboratory Tests 07/09/20 02:43 A/P-Cardiology Admission Diagnosis Acute respiratory failure COVID-19 pneumonia Coronary artery disease Aortic valve stenosis Assessment/Plan Status post acute respiratory failure, on Vapotherm, reporting improvement, managed by Dr. Veras COVID-19 pneumonia, worsening today, transferred to intensive care unit Coronary artery disease, type II myocardial infarction, known to have history of coronary artery disease, cardiac catheterization done on July 05, [address] Arevalo showing patent stent in the proximal LAD, mid circumflex and proximal and midright coronary artery with mild in-stent restenosis. Had 60 percent mid circumflex lesion, 6070 percent distal right coronary artery stenosis, moderate severe aortic regurgitation Echo showed severe aortic stenosis, valve area 0.7 cm, moderate aortic re gurgitation, EF 50-55 percent done in June 2019, conservative management for now, consideration for valve replacement procedure Borderline hypotension, better at this time Patient was seen and evaluated with Noa, examination performed, management plan was discussed, agree with the current scribed note, I made few changes to the note using Italic font Patient is laying down in bed, generalized fatigue, breathing is better Continue to monitor. No changes from cardiology standpoint NOA DONNELLY Jul 09, 2020 14:52 JENI SILVA MD Jul 09, 2020 16:59
[2020-07-09] MEDS: ROSUVASTATIN 20 MG (CRESTOR) TABLET PO SCH (20:10)
[2020-07-10] MEDS: PIPERACILLIN/TAZOBACTAM (BULK) 4.5 GM in NS (IVPB) 100 ML IV SCH ×3 (02:11→16:38)
[2020-07-10] MEDS: IPRATROPIUM INHALER (ATROVENT) 12.9 GM INH SCH ×6 (02:46→23:07)
[2020-07-10] MEDS: RT-ALBUTEROL INHALER HFA (VENTOLIN HFA) 18 GM IH SCH ×6 (02:46→23:08)
[2020-07-10 04:48] VITALS: BP 132/60
[2020-07-10] MEDS: MULTIVIT W/MINERALS TAB (THERAGRAN M) PO SCH (05:57)
[2020-07-10 06:05] LABS: BASOPHILS % (AUTO) 0 % (0-10); EOSINOPHILS % (AUTO) 0 % (0-10); HEMATOCRIT 35 % (40-54); HEMOGLOBIN 11.8 g/dL (13.3-17.7); LYMPHOCYTES # (AUTO) 0.8 10^3/uL (1.0-4.0); LYMPHOCYTES % (AUTO) 7 % (12-44); MEAN CORPUSCULAR HEMOGLOBIN 31 pg (25-34); MEAN CORPUSCULAR HGB CONC 34 g/dL (32-36); MEAN CORPUSCULAR VOLUME 93 fL (80-99); MEAN PLATELET VOLUME 11.4 fL (9.0-12.2); MONOCYTES # (AUTO) 1.5 10^3/uL (0.0-1.0); MONOCYTES % (AUTO) 13 % (0-12); NEUTROPHILS # (AUTO) 9.5 10^3/uL (1.8-7.8); NEUTROPHILS % (AUTO) 79 % (42-75); PLATELET COUNT 237 10^3/uL (130-400); WHITE BLOOD COUNT 11.9 10^3/uL (4.3-11.0)
[2020-07-10 06:37] LABS: ALBUMIN 3.3 GM/DL (3.2-4.5); BILIRUBIN,TOTAL 0.7 MG/DL (0.1-1.0); CALCIUM 8.9 MG/DL (8.5-10.1); CREATININE SERUM 1.23 MG/DL (0.60-1.30); POTASSIUM 3.7 MMOL/L (3.6-5.0); TOTAL PROTEIN 6.3 GM/DL (6.4-8.2)
--- NOTE | 2020-07-10 06:56 | Pulmonary Progress Note ---
Subjective Time Seen by a Provider: 06:51 Subjective/Events-last exam No complications noted. Sepsis Event Evaluation Height, Weight, BMI Height: '" Weight: lbs. oz. kg; 29.27 BMI Method: Exam Exam Vital Signs Date Time Temp Pulse Resp B/P (MAP) Pulse Ox O2 Delivery O2 Flow Rate FiO2 07/10/20 04:48 37.0 75 22 132/60 (84) 94 Vapotherm 15.00 30.00 07/10/20 02:47 98 High Flow N/C 3.00 07/10/20 01:00 66 07/09/20 22:43 94 Vapotherm 15.00 30 07/09/20 22:42 94 Vapotherm 15.00 30 07/09/20 20:19 37.0 69 22 114/58 (76) 94 Vapotherm 15.00 30.00 07/09/20 20:00 94 Vapotherm 15.00 07/09/20 19:05 95 Vapotherm 15.00 30 07/09/20 19:04 95 Vapotherm 15.00 30 07/09/20 19:00 80 07/09/20 16:24 36.2 72 20 121/62 (81) 93 Vapotherm 15.00 30.00 07/09/20 15:45 36.3 73 91 30 07/09/20 14:54 91 Vapotherm 15.00 30 07/09/20 14:54 91 Vapotherm 15.00 30 07/09/20 12:42 73 07/09/20 12:00 36.3 65 22 115/61 (79) 92 Vapotherm 15.00 40.00 07/09/20 10:58 91 Vapotherm 15.00 30 07/09/20 10:57 91 Vapotherm 15.00 30 07/09/20 09:00 92 Vapotherm 15.00 30 07/09/20 08:28 36.1 81 22 127/78 (94) 92 Vapotherm 15.00 40.00 07/09/20 08:00 75 22 117/60 (79) 88 Vapotherm 25.00 40.00 07/09/20 06:58 88 Vapotherm 15.00 30 07/09/20 06:57 88 Vapotherm 15.00 30 I & O 07/10/20 07:00 Intake Total 1460 ml Output Total 1675 ml Balance -215 ml Height & Weight Height: '" Weight: lbs. oz. kg; 29.27 BMI Method: General Appearance: No Apparent Distress, WD/WN, Chronically ill HEENT: PERRL/EOMI, TMs Normal Neck: Full Range of Motion, Normal Inspection, Non Tender Respiratory: Chest Non Tender, Lungs Clear, Normal Breath Sounds, No Accessory Muscle Use, No Respiratory Distress, Decreased Breath Sounds Cardiovascular: Regular Rate, Rhythm, No Edema, No Gallop, No JVD, No Murmur, Normal Peripheral Pulses Capillary Refill: Less Than 3 Seconds Gastrointestinal: normal bowel sounds, non tender, soft Extremity: Normal Capillary Refill, Normal Inspection Neurologic/Psychiatric: Alert, Oriented x3, No Motor/Sensory Deficits, Normal Mood/Affect Skin: Normal Color, Warm/Dry Lymphatic: No Adenopathy Results Lab Laboratory Tests 07/09/20 02:43 07/10/20 05:52 Assessment/Plan Assessment/Plan Acute respiratory failure secondary to COVID 19 severe ARDS -Pt is only on ppx dose lovenox - Vapotherm -currently requiring 30% -Repeat CXR - Zosyn -Echo EF 50-55% -Dx 07/03 - Decadron -- hold -CVP -Prone as tolerated -Pt does not qualify for remdesivir Acute renal failure -Hold lasix -Hold Lisinopril -Continue to monitor 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
[2020-07-10] MEDS: guaiFENesin (MUCINEX) 600 MG TAB PO SCH ×2 (08:44→19:57)
[2020-07-10] MEDS: ASPIRIN E.C. 81 MG (ECOTRIN) TAB PO SCH (08:44)
[2020-07-10] MEDS: CHLORTHALIDONE 25 MG (HYGROTON) TABLET PO SCH (08:44)
[2020-07-10] MEDS: ZINC SULFATE 220 MG CAPSULE PO SCH (08:44)
[2020-07-10] MEDS: CALCIUM ACETATE 667 MG CAP (PHOSLO) PO SCH ×3 (08:44→17:07)
[2020-07-10] MEDS: CLOPIDOGREL 75 MG (PLAVIX) TABLET PO SCH (08:44)
[2020-07-10] MEDS: DOCUSATE SODIUM 100 MG (COLACE) CAP PO SCH ×2 (08:44→19:57)
[2020-07-10] MEDS: ENOXAPARIN 40 MG/0.4 ML (LOVENOX) SYR SQ SCH (08:44)
[2020-07-10] MEDS: amLODIPine 10 MG (NORVASC) TAB PO SCH (08:44)
[2020-07-10] MEDS: FAMOTIDINE 20MG/2ML IV (PEPCID) IV SCH (08:45)
[2020-07-10] MEDS: DORZOLAMIDE/TIMOLOL (COSOPT) 2-0.68% 10 ML BTL OU SCH ×2 (08:46→19:58)
[2020-07-10] MEDS: BRIMONIDINE 0.2% (ALPHAGAN) OPHTH SOLN 5 ML BTL OU SCH ×2 (08:47→19:59)
[2020-07-10 08:49] VITALS: BP 137/58
--- NOTE | 2020-07-10 11:19 | Physical Therapy Evaluation ---
PT Evaluation-General Medical Diagnosis Admission Date Jul 03, 2020 at 09:00 Medical Diagnosis: NSTEMI; COVID Onset Date: Jul 10, 2020 Therapy Diagnosis Therapy Diagnosis: Weakness; abn gait Precautions Precautions/Isolations: Airborne Isolation, Contact Isolation, Droplet Isolation, Fall Prevention Referral Physician: Ari Reason for Referral: Evaluation/Treatment Medical History Current History Pt presented to [facility] with malaise and SOA. He had an elevated Troponin so was transferred to this facility and also found to test positive for COVID. NSTEMI, acute respiratory failure; acute renal failure and hypotension. Social History Home: Single Level Current Living Status: Alone (Family next door) Entry Into Home: Stairs With Railing Prior Prior Level of Function SCALE: Activities may be completed with or without assistive devices. 1-[id number]-[id number] completes the activity by him/herself with no assistance from a helper. 5-Set-up or Clean-up Assistance-helper sets up or cleans up; patient completes activity. [place] assists only prior to or following the activity. 4-Supervision or Touching Assistance-helper provides verbal cues and/or touching/steadying and/or contact guard assistance as patient completes activity. Assistance may be provided throughout the activity or intermittently. 3-Partial/Moderate Assistance-helper does LESS THAN HALF the effort. [place] lifts, holds or supports trunk or limbs, but provides less than half the effort. 2-Substantial/Maximal Assistance-helper does MORE THAN HALF the effort. [place] lifts or holds trunk or limbs and provides more than half the effort. 0-Xrpvxycrs-iexqdb does ALL the effort. Patient does none of the effort to complete the activity. Or, the assistance of 2 or more helpers is required for the patient to complete the activity. If activity was not attempted, code reason: 7-Patient Refused. 9-Not Applicable-not attempted and the patient did not perform the activity before the current illness, exacerbation or injury. 10-Not Attempted due to Environmental Limitations-(lack of equipment, weather restraints, etc.). 88-Not Attempted due to Medical Conditions or Safety Concerns. Bed Mobility: 6 Transfers (B,C,W/C): 6 Gait: 6 Stairs: 6 Indoor Mobility (Ambulation): Independent Stairs: Independent Still drives, community ambulator; active and still actively does yard work. PT Evaluation-Current Subjective Agrees to PT. Reports he is hoping to not need oxygen at discharge. Reports he is feeling well and is trying to stay active in his room. Objective Patient Orientation: Person, Place, Time, Situation Attachments: Oxygen (2l/min via nc; in situ during and post visit. ), IV ROM/Strength ROM Lower Extremities WNL Strength Lower Extremities WFL Integumentary/Posture Integumentary Intact Bowel Incontinence: No Bladder Incontinence: No Posture Normal and symmetrical Neuromuscular (Tone, Coordination, Reflexes) intact and functional Sensory Vision: Functional Hearing: Functional Hand Dominance: Right Sensation Right Lower Extremit: Intact Sensation Left Lower Extremity: Intact Transfers Roll Left to Right (QC): 4 Sit to Lying (QC): 4 Lying to Sitting/Side of Bed(Q: 4 Sit to Stand (QC): 4 Chair/Zwf-qd-Xchal Xfer(QC): 4 Gait Does the Patient Walk?: Yes Walk 10 feet (QC): 4 Gait Assistive Device: FWW Comments/Gait Description Limited distance due to attachments and confined to room this date. Balance Sitting Static: Normal Sitting Dynamic: Normal Standing Static: Normal Standing Dynamic: Normal Treatment PT eval complete. Standing EOB ther ex for marching, calf raises and mini squats, 2 sets of 12 each. Assessment/Needs Pt post NSTEMI and COVID. Will benefit from skilled PT services to address functional mobiltiy and safety as well as progress functional activity toelrance to prepare him for discharge home. Rehab Potential: Good PT Penitentiary Goals Penitentiary Goals PT Supervisor Dials Goals Time Frame: Jul 17, 2020 Roll Left & Right (QC): 6 Sit to Lying (QC): 6 Lying-Sitting on Side/Bed(QC): 6 Sit to Stand (QC): 6 Chair/Xhg-ye-Dvjjh Xfer(QC): 6 Toilet Transfer (QC): 6 Walk 150 ft (QC): 6 PT Plan Problem List Problem List: Activity Tolerance, Functional Strength, Safety, Balance, Gait, Transfer, Bed Mobility Treatment/Plan Treatment Plan: Continue Plan of Care Treatment Plan: Bed Mobility, Education, Functional Activity Jessica, Functional Strength, Gait, Safety, Therapeutic Exercise, Transfers Treatment Duration: Jul 17, 2020 Frequency: 6 times per week Estimated Hrs Per Day: .5 hour per day Patient and/or Family Agrees t: Yes Safety Risks/Education Patient Education: Transfer Techniques, Safety Issues Teaching Recipient: Patient Teaching Methods: Discussion Response to Teaching: Verbalize Understanding Time/GCodes Time In: 1005 Time Out: 1030 Total Billed Treatment Time: 25 Total Billed Treatment visit EVM 10 EX 15 SAL GARCIA PT Jul 10, 2020 11:19
--- NOTE | 2020-07-10 12:00 | Progress Note - Hospitalist ---
Subjective HPI/CC On Admission Date Seen by Provider: Jul 10, 2020 Time Seen by Provider: 11:00 Subjective/Events-last exam Pt doing very well Down to two liters of oxygen Urinating well since catheter was removed Bowels are moving Eating and drinking well [facility] [place] Review of Systems General: Fatigue, Malaise Pulmonary: Dyspnea Objective Exam Vital Signs Vital Signs Date Time Temp Pulse Resp B/P (MAP) Pulse Ox O2 Delivery O2 Flow Rate FiO2 07/11/20 02:42 93 Nasal Cannula 2.00 07/10/20 23:54 37.4 76 20 117/60 (79) 07/09/20 22:43 30 Capillary Refill : Less Than 3 SecondsLess Than 3 Seconds General Appearance: No Apparent Distress, WD/WN, Chronically ill Respiratory: Chest Non Tender, Lungs Clear, Normal Breath Sounds, No Accessory Muscle Use, No Respiratory Distress Cardiovascular: Regular Rate, Rhythm, No Edema, No Gallop, No JVD, No Murmur, Normal Peripheral Pulses Neurologic/Psychiatric: Alert, Oriented x3, No Motor/Sensory Deficits, Normal Mood/Affect Results/Procedures Lab Laboratory Tests 07/10/20 05:52 Patient resulted labs reviewed. 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
--- NOTE | 2020-07-10 13:51 | NUR ---
CM/SS: Visited with pt via phone to discuss and coordinate his discharge plan. Plan: Pt is from home and will plan to return there at time of discharge. Summary: [facility] [place], and he does not have any oxygen in the home at this time. He does have a way home, as his daughter can pick him up at time of discharge. This worker calls to verify with [facility] the fax number for the oxygen need - they also report that they are able to deliver to the hospital.
--- NOTE | 2020-07-10 14:00 | NUR ---
CM/SS: [facility] - FAX FOR OXYGEN IS [phone] AND PHONE NUMBER IS [phone].
--- NOTE | 2020-07-10 14:06 | Occupational Therapy Eval ---
OT Evaluation-General/PLF Medical Diagnosis Admission Date Jul 03, 2020 at 09:00 Medical Diagnosis: NSTEMI; COVID Onset Date: Jul 10, 2020 Therapy Diagnosis Therapy Diagnosis: Weakness Precautions Precautions/Isolations: Airborne Isolation, Contact Isolation, Droplet Isolation, Fall Prevention Weight Bear Status Weight Bearing Restriction: Weight Bearing/Tolerated Referral Physician: Ari Referral Reason: Activity Tolerance, Self Care, Evaluation/Treatment, Strengthening/ROM Medical History Additional Medical History Severe ARDS secondary to COVID, acute renal failure, hypotension Reviewed History: Yes Social History Home: Single Level Current Living Status: Alone (Family next door) Entry Into Home: Stairs With Railing ADL-Prior Level of Function SCALE: Activities may be completed with or without assistive devices. 3-Gjlukaxbek-nzdtood completes the activity by him/herself with no assistance from a helper. 5-Set-up or Clean-up Assistance-helper sets up or cleans up; patient completes activity. [place] assists only prior to or following the activity. 4-Supervision or Touching Assistance-helper provides verbal cues and/or touching/steadying and/or contact guard assistance as patient completes activity. Assistance may be provided throughout the activity or intermittently. 3-Partial/Moderate Assistance-helper does LESS THAN HALF the effort. [place] l ifts, holds or supports trunk or limbs, but provides less than half the effort. 2-Substantial/Maximal Assistance-helper does MORE THAN HALF the effort. [place] lifts or holds trunk or limbs and provides more than half the effort. 8-Vmoltcvdi-uihnhk does ALL the effort. Patient does none of the effort to complete the activity. Or, the assistance of 2 or more helpers is required for t he patient to complete the activity. If activity was not attempted, code reason: 7-Patient Refused. 9-Not Applicable-not attempted and the patient did not perform the activity before the current illness, exacerbation or injury. 10-Not Attempted due to Environmental Limitations-(lack of equipment, weather restraints, etc.). 88-Not Attempted due to Medical Conditions or Safety Concerns. ADL PLOF Comments Pt. states that he is typically independent with all tasks. Pt. does not use an assistive device. He drives. Self Care: Independent Functional Cognition: Independent Drive Self: Yes OT Current Status Subjective No pain reported. No SOA. Appearance Pt. in bed. Alert and oriented. Agrees to work with OT. Mental Status/Objective Patient Orientation: Person, Place, Time, Situation Attachments: IV, Oxygen Current Hand Dominance: Right Upper Extremity ROM WFL Upper Extremity Strength WFL ADL-Treatment Eating (QC): 6 (per pt.) On/Off Footwear (QC): 6 (Seated on side of bed.) Toileting Hygiene (QC): 4 (Pt. verbalizes that he has been ambulating to and from bathroom with SBA.) Other Treatments Pt. alert and oriented. States that he is feeling well. Transferred supine-sit with Mod I using bed rails. Pt. able to doff/don slipper socks, and stand at bedside with no LOB. Pt. reports that he has been able to ambulate into bathroom, and has no difficulty with cleansing self. Pt. verbalizes that his appetite is appropriate. No skilled needs apparent at this time for ADL training. Pt. transferred sit-supine with independence. All needs met. Education OT Patient Education: Correct positioning, Modified ADL techniques, Progress toward Goal/Update tx plan, Purpose of tx/functional activities, Reviewed precautions, Rehab process, Transfer techniques Teaching Recipient: Patient Teaching Methods: Demonstration, Discussion Response to Teaching: Verbalize Understanding, Return Demonstration OT Production Staff Worker Goals Half-Way Goals Time Frame: Jul 10, 2020 Additional Goals: 1-Demonstrate ADL Tasks, 2-Verbalize Understanding 1=Demonstrate adherence to instructed precautions during ADL tasks. 2=Patient will verbalize/demonstrate understanding of assistive devices/modifications for ADL. 3=Patient will improve strength/tolerance for activity to enable patient to perform ADL's. No further OT needs warranted at this time. Pt. seems to be at baseline level. OT Education/Plan Problem List/Assessment Assessment: No Skilled OT Needs ID'd Discharge Recommendations Plan/Recommendations: Discontinue OT Treatment Plan/Plan of Care Treatment,Training & Education: Yes Plan of Care: OTHER Treatment Duration: Jul 10, 2020 Frequency: 1 time per week Rehab Potential: Good Time/GCodes Start Time: 13:10 Stop Time: 13:20 Total Time Billed (hr/min): 10 Billed Treatment Time 1, EVL Discharge pt. from OT services FRANCK YATES OT Jul 10, 2020 14:06
--- NOTE | 2020-07-10 15:02 | Cardiology Progress Note ---
Subjective Date Seen by Provider: Jul 10, 2020 Time Seen by Provider: 11:00 Subjective/Events-last exam patient was seen at bedside, reported that he was feeling better today Objective-Cardiology Exam Last Set of Vital Signs Vital Signs 07/09/20 07/10/20 07/10/20 07/10/20 22:43 08:49 11:06 11:07 Temp 36.3 Pulse 79 Resp 20 B/P (MAP) 137/58 (84) Pulse Ox 94 O2 Delivery Nasal Cannula O2 Flow Rate 2.00 FiO2 30 Capillary Refill : Less Than 3 SecondsLess Than 3 Seconds I&O Intake and Output 07/09/20 23:59 Intake Total 1480 ml Output Total 2325 ml Balance -845 ml Intake Oral 1360 ml IV Total 120 ml Output Urine Total 2325 ml General: Alert HEENT: Atraumatic Heart: Regular Rate Neuro: Normal Speech Psych/Mental Status: Mental Status NL Results Lab Laboratory Tests 07/10/20 05:52 A/P-Cardiology Admission Diagnosis Acute respiratory failure COVID-19 pneumonia Coronary artery disease Aortic valve stenosis Assessment/Plan Status post acute respiratory failure, on Vapotherm, reporting improvement, managed by Dr. Veras COVID-19 pneumonia, worsening today, transferred to intensive care unit Coronary artery disease, type II myocardial infarction, known to have history of coronary artery disease, cardiac catheterization done on July 05, [address] Arevalo showing patent stent in the proximal LAD, mid circumflex and proximal and midright coronary artery with mild in-stent restenosis. Had 60 percent mid circumflex lesion, 6070 percent distal right coronary artery stenosis, moderate severe aortic regurgitation Echo showed severe aortic stenosis, valve area 0.7 cm, moderate aortic regurgitation, EF 50-55 percent done in June 2019, conservative management for now, consideration for valve replacement procedure Borderline hypotension, better at this time JENI SILVA MD Jul 10, 2020 15:02
--- NOTE | 2020-07-10 15:32 | NUR ---
"RD ASSESSMENT PMHx: hypotension; PT INTERACTION: Note pt is currently in COVID isolation per chart review. Note all diet information for assessment for LOS is per Moses RN or per chart review. Moses states current appetite appears good. Note avg PO intake approx 75% x4d, per chart review. Moses states no issues with n/v/c/d that he is aware of. Note last BM was 07/04, and pt currently on bowel regimen of colace BID, per chart review. Note unable to determine recent wt hx, per chart review. Est. kcal needs: 8992-6636 kcal | 20-25 kcal/kg Est. Pro needs: 67-84 g Pro | 0.8-1.0 g Pro/kg PES STATEMENT: Given current PO intake, no nutrition diagnosis at this time (NO-1.1). INTERVENTION: Continue with current diet order of CHO 60g/m 1snack diet. Pt may be advanced to a Regular diet as he has no hx of DM, per chart review. Will continue to follow and reassess as pt needs, intake, and status change. Vaughn RUIZ, MS RD LD [phone] cell"
[2020-07-10 16:02] VITALS: BP 111/58
[2020-07-10] MEDS: ROSUVASTATIN 20 MG (CRESTOR) TABLET PO SCH (19:57)
[2020-07-10 23:54] VITALS: BP 117/60
[2020-07-11] MEDS: PIPERACILLIN/TAZOBACTAM (BULK) 4.5 GM in NS (IVPB) 100 ML IV SCH ×3 (00:27→17:17)
[2020-07-11] MEDS: RT-ALBUTEROL INHALER HFA (VENTOLIN HFA) 18 GM IH SCH ×6 (02:42→21:45)
[2020-07-11] MEDS: IPRATROPIUM INHALER (ATROVENT) 12.9 GM INH SCH ×6 (02:42→21:45)
[2020-07-11] MEDS: MULTIVIT W/MINERALS TAB (THERAGRAN M) PO SCH (05:59)
[2020-07-11 06:38] LABS: BASOPHILS % (AUTO) 0 % (0-10); EOSINOPHILS % (AUTO) 0 % (0-10); HEMATOCRIT 39 % (40-54); HEMOGLOBIN 12.8 g/dL (13.3-17.7); LYMPHOCYTES # (AUTO) 0.8 10^3/uL (1.0-4.0); LYMPHOCYTES % (AUTO) 8 % (12-44); MEAN CORPUSCULAR HEMOGLOBIN 31 pg (25-34); MEAN CORPUSCULAR HGB CONC 33 g/dL (32-36); MEAN CORPUSCULAR VOLUME 94 fL (80-99); MEAN PLATELET VOLUME 11.5 fL (9.0-12.2); MONOCYTES # (AUTO) 1.3 10^3/uL (0.0-1.0); MONOCYTES % (AUTO) 12 % (0-12); NEUTROPHILS # (AUTO) 8.3 10^3/uL (1.8-7.8); NEUTROPHILS % (AUTO) 78 % (42-75); PLATELET COUNT 256 10^3/uL (130-400); WHITE BLOOD COUNT 10.6 10^3/uL (4.3-11.0)
[2020-07-11 07:07] LABS: ALBUMIN 3.6 GM/DL (3.2-4.5)
[2020-07-11 07:08] LABS: POTASSIUM 3.7 MMOL/L (3.6-5.0)
[2020-07-11 07:09] LABS: CALCIUM 9.3 MG/DL (8.5-10.1)
[2020-07-11 07:10] LABS: TOTAL PROTEIN 7.1 GM/DL (6.4-8.2)
[2020-07-11 07:14] LABS: CREATININE SERUM 1.17 MG/DL (0.60-1.30)
--- NOTE | 2020-07-11 07:29 | Pulmonary Progress Note ---
Subjective Time Seen by a Provider: 07:26 Subjective/Events-last exam No complications noted. Sepsis Event Evaluation Height, Weight, BMI Height: '" Weight: lbs. oz. kg; 29.27 BMI Method: Exam Exam Vital Signs Date Time Temp Pulse Resp B/P (MAP) Pulse Ox O2 Delivery O2 Flow Rate FiO2 07/11/20 02:42 93 Nasal Cannula 2.00 07/10/20 23:54 37.4 76 20 117/60 (79) 95 Nasal Cannula 4.00 07/10/20 23:08 Nasal Cannula 2.00 07/10/20 20:16 Nasal Cannula 2.00 07/10/20 20:00 Nasal Cannula 2.00 07/10/20 16:02 35.5 66 20 111/58 (75) 93 Nasal Cannula 4.00 07/10/20 15:07 Nasal Cannula 2.00 07/10/20 15:06 92 High Flow N/C 2.00 07/10/20 11:07 Nasal Cannula 2.00 07/10/20 11:06 94 High Flow N/C 2.00 07/10/20 08:49 36.3 79 20 137/58 (84) 96 High Flow N/C 07/10/20 08:38 Nasal Cannula 2.00 07/10/20 08:37 93 High Flow N/C 2.00 07/10/20 08:00 96 Nasal Cannula 2.00 I & O 07/11/20 07:00 Intake Total 2300 ml Output Total 1550 ml Balance 750 ml Height & Weight Height: '" Weight: lbs. oz. kg; 29.27 BMI Method: General Appearance: No Apparent Distress, WD/WN, Chronically ill HEENT: PERRL/EOMI, TMs Normal Neck: Full Range of Motion, Normal Inspection, Non Tender Respiratory: Chest Non Tender, Lungs Clear, Normal Breath Sounds, No Accessory Muscle Use, No Respiratory Distress Cardiovascular: Regular Rate, Rhythm, No Edema, No Gallop, No JVD, No Murmur, Normal Peripheral Pulses Capillary Refill: Less Than 3 Seconds Gastrointestinal: normal bowel sounds, non tender, soft Extremity: Normal Capillary Refill, Normal Inspection Neurologic/Psychiatric: Alert, Oriented x3, No Motor/Sensory Deficits, Normal Mood/Affect Skin: Normal Color, Warm/Dry Lymphatic: No Adenopathy Results Lab Laboratory Tests 07/10/20 05:52 07/11/20 06:18 Assessment/Plan Assessment/Plan Acute respiratory failure secondary to COVID 19 severe ARDS -2 liter NC - Zosyn -Echo EF 50-55% -Dx 07/03 - Decadron -- hold -CVP -Prone as tolerated -Pt does not qualify for remdesivir Acute renal failure -Hold lasix -Hold Lisinopril -Continue to monitor 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
--- NOTE | 2020-07-11 07:54 | NUR ---
pt was placed on room air for 5 minutes. pt desaturated to 87%. pt was then placed on 3l. pt saturation came up to 91%. pt will need 3l continuously Addendum: 07/11/20 at 0755 by JAQUELINE CROW RT Amended: Links added.
[2020-07-11] MEDS: CALCIUM ACETATE 667 MG CAP (PHOSLO) PO SCH ×3 (08:13→17:17)
[2020-07-11] MEDS: ZINC SULFATE 220 MG CAPSULE PO SCH (08:13)
[2020-07-11] MEDS: amLODIPine 10 MG (NORVASC) TAB PO SCH (08:13)
[2020-07-11] MEDS: DOCUSATE SODIUM 100 MG (COLACE) CAP PO SCH ×2 (08:13→20:42)
[2020-07-11] MEDS: CHLORTHALIDONE 25 MG (HYGROTON) TABLET PO SCH (08:13)
[2020-07-11] MEDS: ENOXAPARIN 40 MG/0.4 ML (LOVENOX) SYR SQ SCH (08:13)
[2020-07-11] MEDS: CLOPIDOGREL 75 MG (PLAVIX) TABLET PO SCH (08:13)
[2020-07-11] MEDS: guaiFENesin (MUCINEX) 600 MG TAB PO SCH ×2 (08:13→20:42)
[2020-07-11] MEDS: ASPIRIN E.C. 81 MG (ECOTRIN) TAB PO SCH (08:13)
[2020-07-11] MEDS: BRIMONIDINE 0.2% (ALPHAGAN) OPHTH SOLN 5 ML BTL OU SCH ×2 (08:14→20:41)
[2020-07-11] MEDS: DORZOLAMIDE/TIMOLOL (COSOPT) 2-0.68% 10 ML BTL OU SCH ×2 (08:14→20:41)
[2020-07-11] MEDS: FAMOTIDINE 20MG/2ML IV (PEPCID) IV SCH (08:14)
[2020-07-11 08:18] VITALS: BP 136/61
--- NOTE | 2020-07-11 10:23 | Physical Therapy Daily Note ---
PT Daily Note-Current Subjective Agrees to light PT this date. Reports he feels more tired today. Requests to lie down after treatment this date. Transfers SCALE: Activities may be completed with or without assistive devices. 9-Bmrsexsjyq-xhinjtf completes the activity by him/herself with no assistance from a helper. 5-Set-up or Clean-up Assistance-helper sets up or cleans up; patient completes activity. [place] assists only prior to or following the activity. 4-Supervision or Touching Assistance-helper provides verbal cues and/or touching/steadying and/or contact guard assistance as patient completes activity. Assistance may be provided throughout the activity or intermittently. 3-Partial/Moderate Assistance-helper does LESS THAN HALF the effort. [place] lifts, holds or supports trunk or limbs, but provides less than half the effort. 2-Substantial/Maximal Assistance-helper does MORE THAN HALF the effort. [place] lifts or holds trunk or limbs and provides more than half the effort. 1-Xpjadzssa-phdktv does ALL the effort. Patient does none of the effort to c omplete the activity. Or, the assistance of 2 or more helpers is required for the patient to complete the activity. If activity was not attempted, code reason: 7-Patient Refused. 9-Not Applicable-not attempted and the patient did not perform the activity before the current illness, exacerbation or injury. 10-Not Attempted due to Environmental Limitations-(lack of equipment, weather restraints, etc.). 88-Not Attempted due to Medical Conditions or Safety Concerns. Sit to Lying (QC): 6 Sit to Stand (QC): 5 Toilet Transfer (QC): 5 Pt does not need assist with functional mobilty, just light supervision or set up due to small room and oxygen tubing management. Gait Training Walk 50 ft with 2 Turns(QC): 5 Gait Assistive Device: FWW Assist to manage oxygen tubing due to small room. Exercises Standing: Heel/toe raises, Marching, Mini squats Standing Reps: 10 Treatments Pt walked in /out of bathroom and made a lap around the room. Standing at EOB ther ex and then requested to lie down. In bed with oxygen in situ, needs met post treatment. Assessment Current Status: Good Progress Pt appears to be tired today and does not appear to feel as well as he did yeste rday. Notified nurse. Pt is safe with mobility, just has limited activity tolerance this date. PT Supervisor Audit Clerks Goals Supervisor Audit Clerks Goals PT Residential Goals Time Frame: Jul 17, 2020 Roll Left & Right (QC): 6 Sit to Lying (QC): 6 Lying-Sitting on Side/Bed(QC): 6 Sit to Stand (QC): 6 Chair/Rya-yb-Ytlvs Xfer(QC): 6 Toilet Transfer (QC): 6 Walk 150 ft (QC): 6 PT Plan Problem List Problem List: Activity Tolerance, Functional Strength, Safety Treatment/Plan Treatment Plan: Continue Plan of Care Treatment Plan: Bed Mobility, Education, Functional Activity Jessica, Functional Strength, Gait, Safety, Therapeutic Exercise, Transfers Treatment Duration: Jul 17, 2020 Frequency: 6 times per week Estimated Hrs Per Day: .5 hour per day Patient and/or Family Agrees t: Yes Safety Risks/Education Patient Education: Safety Issues Teaching Recipient: Patient Teaching Methods: Discussion Response to Teaching: Verbalize Understanding Time/GCodes Time In: 845 Time Out: 905 Total Billed Treatment Time: 20 Total Billed Treatment visit FA 20 SAL GARCIA PT Jul 11, 2020 10:23
--- NOTE | 2020-07-11 12:05 | NUR ---
CM/SS: O[place] information faxed to [place]. [phone]. personal injury attorney is Jacqueline. The telephone number is [phone] ext [phone]. Call to Jacqueline - she has received the request and request that this worker call the [place] [employer] at [phone].
--- NOTE | 2020-07-11 12:10 | NUR ---
CM/SS: Notified that pt would not be leaving today -due to change in his status. Called to leave message on [phone] for Jacqueline - left voice mail. Telephone call to [facility] - oxygen supplier - [phone] - they report they have not received the information. Once received the oxygen can be delivered. They are notified that pt will not be discharging today.
--- NOTE | 2020-07-11 12:13 | Progress Note - Hospitalist ---
Subjective HPI/CC On Admission Date Seen by Provider: Jul 11, 2020 Time Seen by Provider: 11:00 Subjective/Events-last exam Coughing worse A bit more dyspneic Holding DC Home O2 ordered Review of Systems General: Fatigue, Malaise Pulmonary: Dyspnea Objective Exam Vital Signs Vital Signs Date Time Temp Pulse Resp B/P (MAP) Pulse Ox O2 Delivery O2 Flow Rate FiO2 07/12/20 01:40 92 Nasal Cannula 3.00 07/12/20 00:29 37.1 79 24 119/60 (79) 07/09/20 22:43 30 Capillary Refill : Less Than 3 SecondsLess Than 3 Seconds General Appearance: No Apparent Distress, WD/WN, Chronically ill Respiratory: Lungs Clear, Normal Breath Sounds Cardiovascular: Regular Rate, Rhythm, No Edema, No Gallop, No JVD, No Murmur, Normal Peripheral Pulses Neurologic/Psychiatric: Alert, Oriented x3, No Motor/Sensory Deficits, Normal Mood/Affect Results/Procedures Lab Laboratory Tests 07/12/20 07:00 Patient resulted labs reviewed. 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
[2020-07-11] MEDS: guaiFENesin/DM (ROBITUSSIN DM) 10 ML UDC PO PRN ×2 (12:55→21:56)
[2020-07-11 13:01] VITALS: BP 129/82
--- NOTE | 2020-07-11 14:59 | Diagnostic Imaging Report ---
INDICATION: Cough. TIME OF EXAM: 02:12 p.m. COMPARISON: Correlation is made with prior chest from 07/09/2020. FINDINGS: Heart size is normal. There are some patchy infiltrates in both bases. Mid and upper lung myles are clear. No effusion or pneumothorax is identified. IMPRESSION: Patchy bibasilar infiltrates, similar to the examination two days earlier. Dictated by: Dictated on workstation # [id number]
--- NOTE | 2020-07-11 16:24 | NUR ---
Per TAYLOR Carlos, human services worker had been [facility] contact with the [facility] attempting [facility] oxygen for the patient upon discharge. VA reports the patient lives outside of the [facility]'s delivery coverage area and they are unable to provide oxygen for patient. Patient has no other pay source at this time. human services worker reports they will continue to work on other sources for home oxygen Tuesday07/14/20
[2020-07-11 16:30] VITALS: BP 135/65
[2020-07-11] MEDS: ADVAIR HFA 115/21 MCG INHALER 8 GM IH SCH (18:36)
[2020-07-11] MEDS: ROSUVASTATIN 20 MG (CRESTOR) TABLET PO SCH (20:42)
[2020-07-12 00:29] VITALS: BP 119/60
[2020-07-12] MEDS: PIPERACILLIN/TAZOBACTAM (BULK) 4.5 GM in NS (IVPB) 100 ML IV SCH ×2 (01:08→08:24)
[2020-07-12] MEDS: RT-ALBUTEROL INHALER HFA (VENTOLIN HFA) 18 GM IH SCH ×6 (01:39→21:35)
[2020-07-12] MEDS: IPRATROPIUM INHALER (ATROVENT) 12.9 GM INH SCH ×6 (01:39→21:34)
[2020-07-12] MEDS: MULTIVIT W/MINERALS TAB (THERAGRAN M) PO SCH (06:18)
[2020-07-12 07:09] LABS: BASOPHILS % (AUTO) 0 % (0-10); EOSINOPHILS % (AUTO) 0 % (0-10); HEMATOCRIT 38 % (40-54); HEMOGLOBIN 12.5 g/dL (13.3-17.7); LYMPHOCYTES # (AUTO) 0.6 10^3/uL (1.0-4.0); LYMPHOCYTES % (AUTO) 8 % (12-44); MEAN CORPUSCULAR HEMOGLOBIN 31 pg (25-34); MEAN CORPUSCULAR HGB CONC 33 g/dL (32-36); MEAN CORPUSCULAR VOLUME 92 fL (80-99); MEAN PLATELET VOLUME 11.2 fL (9.0-12.2); MONOCYTES # (AUTO) 0.9 10^3/uL (0.0-1.0); MONOCYTES % (AUTO) 12 % (0-12); NEUTROPHILS # (AUTO) 5.6 10^3/uL (1.8-7.8); NEUTROPHILS % (AUTO) 75 % (42-75); PLATELET COUNT 240 10^3/uL (130-400); WHITE BLOOD COUNT 7.5 10^3/uL (4.3-11.0)
[2020-07-12 07:20] LABS: ALBUMIN 3.2 GM/DL (3.2-4.5)
[2020-07-12 07:21] LABS: POTASSIUM 3.6 MMOL/L (3.6-5.0)
[2020-07-12 07:22] LABS: CALCIUM 8.8 MG/DL (8.5-10.1)
[2020-07-12 07:23] LABS: TOTAL PROTEIN 6.4 GM/DL (6.4-8.2)
[2020-07-12 07:25] LABS: BILIRUBIN,TOTAL 1.1 MG/DL (0.1-1.0)
[2020-07-12 07:27] LABS: CREATININE SERUM 1.17 MG/DL (0.60-1.30)
[2020-07-12 07:40] VITALS: BP 115/62
[2020-07-12] MEDS: guaiFENesin/DM (ROBITUSSIN DM) 10 ML UDC PO PRN ×2 (08:23→15:17)
[2020-07-12] MEDS: ASPIRIN E.C. 81 MG (ECOTRIN) TAB PO SCH (08:23)
[2020-07-12] MEDS: CALCIUM ACETATE 667 MG CAP (PHOSLO) PO SCH ×3 (08:23→17:54)
[2020-07-12] MEDS: CLOPIDOGREL 75 MG (PLAVIX) TABLET PO SCH (08:23)
[2020-07-12] MEDS: ZINC SULFATE 220 MG CAPSULE PO SCH (08:23)
[2020-07-12] MEDS: amLODIPine 10 MG (NORVASC) TAB PO SCH (08:24)
[2020-07-12] MEDS: DORZOLAMIDE/TIMOLOL (COSOPT) 2-0.68% 10 ML BTL OU SCH ×2 (08:24→21:33)
[2020-07-12] MEDS: DOCUSATE SODIUM 100 MG (COLACE) CAP PO SCH ×2 (08:24→21:33)
[2020-07-12] MEDS: FAMOTIDINE 20MG/2ML IV (PEPCID) IV SCH (08:24)
[2020-07-12] MEDS: BRIMONIDINE 0.2% (ALPHAGAN) OPHTH SOLN 5 ML BTL OU SCH ×2 (08:24→21:33)
[2020-07-12] MEDS: guaiFENesin (MUCINEX) 600 MG TAB PO SCH ×2 (08:39→21:33)
[2020-07-12] MEDS: CHLORTHALIDONE 25 MG (HYGROTON) TABLET PO SCH (08:39)
[2020-07-12] MEDS: ADVAIR HFA 115/21 MCG INHALER 8 GM IH SCH (10:18)
[2020-07-12] MEDS: ENOXAPARIN 40 MG/0.4 ML (LOVENOX) SYR SQ SCH (10:50)
--- NOTE | 2020-07-12 11:00 | Physical Therapy Daily Note ---
PT Daily Note-Current Subjective States that he is tired but he will try. Transfers SCALE: Activities may be completed with or without assistive devices. 9-Bcgugohunh-sjtswpm completes the activity by him/herself with no assistance from a helper. 5-Set-up or Clean-up Assistance-helper sets up or cleans up; patient completes activity. [place] assists only prior to or following the activity. 4-Supervision or Touching Assistance-helper provides verbal cues and/or touching/steadying and/or contact guard assistance as patient completes activity. Assistance may be provided throughout the activity or intermittently. 3-Partial/Moderate Assistance-helper does LESS THAN HALF the effort. [place] lifts, holds or supports trunk or limbs, but provides less than half the effort. 2-Substantial/Maximal Assistance-helper does MORE THAN HALF the effort. [place] lifts or holds trunk or limbs and provides more than half the effort. 4-Hakaqlnms-apvwep does ALL the effort. Patient does none of the effort to complete the activity. Or, the assistance of 2 or more helpers is required for the patient to complete the activity. If activity was not attempted, code reason: 7-Patient Refused. 9-Not Applicable-not attempted and the patient did not perform the activity before the current illness, exacerbation or injury. 10-Not Attempted due to Environmental Limitations-(lack of equipment, weather restraints, etc.). 88-Not Attempted due to Medical Conditions or Safety Concerns. Roll Left & Right (QC): 4 Sit to Lying (QC): 4 Lying to Sitting/Side of Bed(Q: 4 Sit to Stand (QC): 5 Exercises Seated Therapy Exercises: LE Protocol Seated Reps: 20 Standing: Heel/toe raises, Marching, Weight shifts Standing Reps: 20 Assessment Current Status: Good Progress Patient did well with all exercises. PT Stove Bottom Worker Goals Jail Goals PT Stove Bottom Worker Goals Time Frame: Jul 17, 2020 Roll Left & Right (QC): 6 Sit to Lying (QC): 6 Lying-Sitting on Side/Bed(QC): 6 Sit to Stand (QC): 6 Chair/Mvb-eg-Tlhlq Xfer(QC): 6 Toilet Transfer (QC): 6 Walk 150 ft (QC): 6 PT Plan Treatment/Plan Treatment Plan: Continue Plan of Care Treatment Plan: Bed Mobility, Education, Functional Activity Jessica, Functional Strength, Gait, Safety, Therapeutic Exercise, Transfers Treatment Duration: Jul 17, 2020 Frequency: 6 times per week Estimated Hrs Per Day: .5 hour per day Patient and/or Family Agrees t: Yes Time/GCodes Time In: 1035 Time Out: 1050 Total Billed Treatment Time: 15 Total Billed Treatment 1, EX x 15 BERNADETTE QURESHI PT Jul 12, 2020 11:00
--- NOTE | 2020-07-12 13:09 | PM&R Progress Note ---
Subjective HPI/CC On Admission Date Seen by Provider: Jul 12, 2020 Objective Exam Vital Signs Vital Signs Date Time Temp Pulse Resp B/P (MAP) Pulse Ox O2 Delivery O2 Flow Rate FiO2 07/12/20 10:19 91 Nasal Cannula 3.00 07/12/20 07:40 37.5 80 24 115/62 (79) 07/09/20 22:43 30 Capillary Refill : Less Than 3 SecondsLess Than 3 Seconds General Appearance: No Apparent Distress, WD/WN, Chronically ill HEENT: PERRL/EOMI, TMs Normal Neck: Full Range of Motion, Normal Inspection, Non Tender Respiratory: Lungs Clear, Normal Breath Sounds Cardiovascular: Regular Rate, Rhythm, No Edema, No Gallop, No JVD, No Murmur, Normal Peripheral Pulses Extremity: Normal Capillary Refill, Normal Inspection Neurologic/Psychiatric: Alert, Oriented x3, No Motor/Sensory Deficits, Normal Mood/Affect Skin: Normal Color, Warm/Dry Lymphatic: No Adenopathy Results/Procedures Lab Laboratory Tests 07/12/20 07:00 Patient resulted labs reviewed. [facility] Transfers Therapy Code Descriptions/Definitions Functional Mclean Measure: 0=Not Assessed/NA 4=Minimal Assistance 1=Total Assistance 5=Supervision or Setup 2=Maximal Assistance 6=Modified Mclean 3=Moderate Assistance 7=Complete IndependenceSCALE: Activities may be completed with or without assistive devices. 6-Rfucfzwnbc-xqkehto completes the activity by him/herself with no assistance from a helper. 5-Set-up or Clean-up Assistance-helper sets up or cleans up; patient completes activity. [place] assists only prior to or following the activity. 4-Supervision or Touching Assistance-helper provides verbal cues and/or touching/steadying and/or contact guard assistance as patient completes activity. Assistance may be provided throughout the activity or intermittently. 3-Partial/Moderate Assistance-helper does LESS THAN HALF the effort. [place] lifts, holds or supports trunk or limbs, but provides less than half the effort. 2-Substantial/Maximal Assistance-helper does MORE THAN HALF the effort. [place] lifts or holds trunk or limbs and provides more than half the effort. 6-Sswwfzxzj-owurbr does ALL the effort. Patient does none of the effort to complete the activity. Or, the assistance of 2 or more helpers is required for the patient to complete the activity. If activity was not attempted, code reason: 7-Patient Refused. 9-Not Applicable-not attempted and the patient did not perform the activity before the current illness, exacerbation or injury. 10-Not Attempted due to Environmental Limitations-(lack of equipment, weather restraints, etc.). 88-Not Attempted due to Medical Conditions or Safety Concerns. Roll Left to Right (QC): 4 Sit to Lying (QC): 4 Sit to Stand (QC): 5 Chair/Suw-ny-Hijli Xfer(QC): 4 Gait Training Does the Patient Walk?: Yes Walk 10 feet (QC): 4 Walk 50 ft with 2 Turns(QC): 5 Gait Assistive Device: FWW ADL-Treatment Eating (QC): 6 (per pt.) On/Off Footwear (QC): 6 (Seated on side of bed.) Toileting Hygiene (QC): 4 (Pt. 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
--- NOTE | 2020-07-12 13:16 | Progress Note - Hospitalist ---
Subjective HPI/CC On Admission Date Seen by Provider: Jul 12, 2020 Time Seen by Provider: 12:00 Subjective/Events-last exam O2 was out of delivery area [facility] Cough improved Overall doing a bit better Review of Systems Pulmonary: Dyspnea, Cough Objective Exam Vital Signs Vital Signs Date Time Temp Pulse Resp B/P (MAP) Pulse Ox O2 Delivery O2 Flow Rate FiO2 07/13/20 07:01 90 Nasal Cannula 4.00 07/13/20 00:36 36.4 66 22 121/58 (79) 07/09/20 22:43 30 Capillary Refill : Less Than 3 SecondsLess Than 3 Seconds General Appearance: No Apparent Distress, WD/WN, Chronically ill Respiratory: Chest Non Tender, Lungs Clear, Normal Breath Sounds, No Accessory Muscle Use, No Respiratory Distress Cardiovascular: Regular Rate, Rhythm, No Edema, No Gallop, No JVD, No Murmur, Normal Peripheral Pulses Neurologic/Psychiatric: Alert, Oriented x3, No Motor/Sensory Deficits, Normal Mood/Affect Results/Procedures Lab Patient resulted labs reviewed. 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
[2020-07-12 16:40] VITALS: BP 117/60
[2020-07-12] MEDS ORDERED: ACETAMINOPHEN 500 MG TAB (TYLENOL) ONE (18:45)
[2020-07-12] MEDS ORDERED: ACETAMINOPHEN 500 MG TAB (TYLENOL) PO PRN (19:00)
[2020-07-12] MEDS: ROSUVASTATIN 20 MG (CRESTOR) TABLET PO SCH (21:33)
[2020-07-13 00:36] VITALS: BP 121/58
[2020-07-13] MEDS: RT-ALBUTEROL INHALER HFA (VENTOLIN HFA) 18 GM IH SCH ×6 (02:49→21:44)
[2020-07-13] MEDS: IPRATROPIUM INHALER (ATROVENT) 12.9 GM INH SCH ×6 (02:50→21:43)
[2020-07-13] MEDS: ADVAIR HFA 115/21 MCG INHALER 8 GM IH SCH ×2 (06:10→21:43)
[2020-07-13] MEDS: MULTIVIT W/MINERALS TAB (THERAGRAN M) PO SCH (06:13)
[2020-07-13 08:00] VITALS: BP 131/64
[2020-07-13] MEDS: DOCUSATE SODIUM 100 MG (COLACE) CAP PO SCH ×2 (08:50→20:22)
[2020-07-13] MEDS: ASPIRIN E.C. 81 MG (ECOTRIN) TAB PO SCH (08:50)
[2020-07-13] MEDS: ZINC SULFATE 220 MG CAPSULE PO SCH (08:50)
[2020-07-13] MEDS: CALCIUM ACETATE 667 MG CAP (PHOSLO) PO SCH ×3 (08:50→17:43)
[2020-07-13] MEDS: guaiFENesin (MUCINEX) 600 MG TAB PO SCH ×2 (08:50→20:22)
[2020-07-13] MEDS: DORZOLAMIDE/TIMOLOL (COSOPT) 2-0.68% 10 ML BTL OU SCH ×2 (08:51→20:24)
[2020-07-13] MEDS: CLOPIDOGREL 75 MG (PLAVIX) TABLET PO SCH (08:51)
[2020-07-13] MEDS: CHLORTHALIDONE 25 MG (HYGROTON) TABLET PO SCH (08:51)
[2020-07-13] MEDS: amLODIPine 10 MG (NORVASC) TAB PO SCH (08:51)
[2020-07-13] MEDS: BRIMONIDINE 0.2% (ALPHAGAN) OPHTH SOLN 5 ML BTL OU SCH ×2 (08:52→20:23)
[2020-07-13] MEDS: ENOXAPARIN 40 MG/0.4 ML (LOVENOX) SYR SQ SCH (09:15)
[2020-07-13] MEDS: FAMOTIDINE 20MG/2ML IV (PEPCID) IV SCH (09:41)
--- NOTE | 2020-07-13 12:37 | Progress Note - Hospitalist ---
Subjective HPI/CC On Admission Date Seen by Provider: Jul 13, 2020 Time Seen by Provider: 11:30 Subjective/Events-last exam Patient still requiring O2 at 4L/min Lungs diminished Cough improved Overall doing well otherwise BM Eating well Objective Exam Vital Signs Vital Signs Date Time Temp Pulse Resp B/P (MAP) Pulse Ox O2 Delivery O2 Flow Rate FiO2 07/13/20 19:07 94 Nasal Cannula 8.00 07/13/20 16:50 37.6 85 22 127/61 (83) 07/09/20 22:43 30 Capillary Refill : Less Than 3 SecondsLess Than 3 Seconds General Appearance: No Apparent Distress, WD/WN Respiratory: Chest Non Tender, Lungs Clear, Normal Breath Sounds, No Accessory Muscle Use, No Respiratory Distress, Decreased Breath Sounds Cardiovascular: Regular Rate, Rhythm, No Edema, No Gallop, No JVD, No Murmur, Normal Peripheral Pulses Neurologic/Psychiatric: Alert, Oriented x3, No Motor/Sensory Deficits, Normal Mood/Affect Results/Procedures Lab Patient resulted labs reviewed. 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
[2020-07-13 16:50] VITALS: BP 127/61
[2020-07-13] MEDS: ROSUVASTATIN 20 MG (CRESTOR) TABLET PO SCH (20:22)
[2020-07-14] VITALS (7 sets, daily range): BP systolic 98–135; BP diastolic 53–73
[2020-07-14] MEDS: IPRATROPIUM INHALER (ATROVENT) 12.9 GM INH SCH ×6 (02:06→22:33)
[2020-07-14] MEDS: RT-ALBUTEROL INHALER HFA (VENTOLIN HFA) 18 GM IH SCH ×6 (02:06→22:33)
[2020-07-14 05:53] LABS: BASOPHILS % (AUTO) 0 % (0-10); EOSINOPHILS % (AUTO) 0 % (0-10); HEMATOCRIT 36 % (40-54); HEMOGLOBIN 12.3 g/dL (13.3-17.7); LYMPHOCYTES % (AUTO) 12 % (12-44); MEAN CORPUSCULAR HEMOGLOBIN 31 pg (25-34); MEAN CORPUSCULAR HGB CONC 34 g/dL (32-36); MEAN CORPUSCULAR VOLUME 91 fL (80-99); MEAN PLATELET VOLUME 10.8 fL (9.0-12.2); MONOCYTES # (AUTO) 0.4 10^3/uL (0.0-1.0); MONOCYTES % (AUTO) 5 % (0-12); NEUTROPHILS # (AUTO) 7.1 10^3/uL (1.8-7.8); NEUTROPHILS % (AUTO) 81 % (42-75); PLATELET COUNT 263 10^3/uL (130-400); WHITE BLOOD COUNT 8.8 10^3/uL (4.3-11.0)
[2020-07-14 06:06] LABS: CHLORIDE 96 MMOL/L (98-107); POTASSIUM 3.1 MMOL/L (3.6-5.0); SODIUM 132 MMOL/L (135-145)
[2020-07-14 06:07] LABS: CALCIUM 8.4 MG/DL (8.5-10.1)
[2020-07-14 06:08] LABS: GLUCOSE 106 MG/DL (70-105); TOTAL PROTEIN 6.3 GM/DL (6.4-8.2)
[2020-07-14 06:09] LABS: CARBON DIOXIDE 23 MMOL/L (21-32)
[2020-07-14 06:10] LABS: BILIRUBIN,TOTAL 0.7 MG/DL (0.1-1.0)
[2020-07-14 06:11] LABS: ALKALINE PHOSPHATASE 66 U/L (40-136)
[2020-07-14 06:12] LABS: CREATININE SERUM 0.97 MG/DL (0.60-1.30); GFR ESTIMATED > 60
[2020-07-14 06:13] LABS: BUN/CREATININE RATIO 39
[2020-07-14] MEDS: MULTIVIT W/MINERALS TAB (THERAGRAN M) PO SCH (06:13)
[2020-07-14 06:15] LABS: ALANINE AMINOTRANSFERASE 52 U/L (0-55)
[2020-07-14] MEDS ORDERED: NS IV 500 ML 500 ML ONE (06:28)
[2020-07-14 06:43] LABS: PHOSPHORUS 2.7 MG/DL (2.3-4.7)
[2020-07-14] MEDS: ADVAIR HFA 115/21 MCG INHALER 8 GM IH SCH ×2 (07:01→18:31)
[2020-07-14 07:08] LABS: ABG BASE EXCESS 2.6 MMOL/L (-2.5-2.5); ABG OXYGEN SATURATION 92 % (94-100); ABG PCO2 34 MMHG (35-45); ABG PH 7.49 (7.37-7.43); ABG PO2 64 MMHG (79-93); ABG TCO2 26.8 MMOL/L (21.0-31.0)
[2020-07-14 07:13] LABS: ALLENS TEST YES-POS; INSPIRED O2 75%; VENTILATOR NO
--- NOTE | 2020-07-14 07:13 | Pulmonary Progress Note ---
Subjective Time Seen by a Provider: 07:10 Subjective/Events-last exam Pt is now requiring more oxygen and complains of increased SOB. Sepsis Event Evaluation Height, Weight, BMI Height: '" Weight: lbs. oz. kg; 29.27 BMI Method: Exam Exam Vital Signs Date Time Temp Pulse Resp B/P (MAP) Pulse Ox O2 Delivery O2 Flow Rate FiO2 07/14/20 03:51 37.0 74 20 118/73 (88) 95 Vapotherm 25.00 75.00 07/14/20 02:08 97 Vapotherm 8.00 75 07/14/20 02:07 97 Vapotherm 25.00 75 07/14/20 00:22 37.1 50 22 109/56 (73) 96 Vapotherm 07/13/20 21:44 90 Nasal Cannula 8.00 07/13/20 21:44 90 Nasal Cannula 8.00 07/13/20 21:44 90 Nasal Cannula 8.00 07/13/20 20:00 Nasal Cannula 8.00 07/13/20 19:07 94 Nasal Cannula 8.00 07/13/20 18:38 96 Nasal Cannula 10.00 07/13/20 16:50 37.6 85 22 127/61 (83) 88 Nasal Cannula 6.00 07/13/20 14:00 92 Nasal Cannula 5.00 07/13/20 14:00 92 Nasal Cannula 5.00 07/13/20 10:02 90 Nasal Cannula 4.00 07/13/20 10:02 90 Nasal Cannula 4.00 07/13/20 08:42 Nasal Cannula 4.00 07/13/20 08:00 37.2 71 16 131/64 (86) 92 Nasal Cannula 4.00 I & O 07/14/20 06:59 Intake Total 2045 ml Output Total 1000 ml Balance 1045 ml Height & Weight Height: '" Weight: lbs. oz. kg; 29.27 BMI Method: General Appearance: WD/WN, Anxious, Mild Distress HEENT: PERRL/EOMI, TMs Normal Neck: Full Range of Motion, Normal Inspection, Non Tender Respiratory: Chest Non Tender, Normal Breath Sounds, Crackles, Decreased Breath Sounds Cardiovascular: Regular Rate, Rhythm, No Edema, No Gallop, No JVD, No Murmur, Normal Peripheral Pulses Capillary Refill: Less Than 3 Seconds Gastrointestinal: normal bowel sounds, non tender, soft Extremity: Normal Capillary Refill, Normal Inspection Neurologic/Psychiatric: Alert, Oriented x3, No Motor/Sensory Deficits, Normal Mood/Affect Skin: Normal Color, Warm/Dry Lymphatic: No Adenopathy Results Lab Laboratory Tests 07/14/20 05:32 Assessment/Plan Assessment/Plan Acute respiratory failure secondary to COVID 19 severe ARDS -Pt is now requiring 80% Vapotherm - Zosyn -- restart -Transfer pt back to ICU. 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
--- NOTE | 2020-07-14 07:28 | Diagnostic Imaging Report ---
INDICATION: Shortness of breath. Comparison is made with prior examination from 07/11/2020. FINDINGS: There is cardiomegaly. There are patchy bibasilar pulmonary infiltrates. There is no pleural effusion or pneumothorax. The mediastinum is unremarkable. IMPRESSION: Patchy bibasilar pulmonary infiltrates Cardiomegaly and some central pulmonary venous congestion Dictated by: Dictated on workstation # [id number]
[2020-07-14] MEDS ORDERED: PIPERACILLIN/TAZOBACTAM 4.5 GM in NS (IVPB) 100 ML IV NR (08:00)
[2020-07-14] MEDS: POTASSIUM CL 10MEQ/50ML IVPB 50 ML IV SCH ×6 (08:01→15:36)
--- NOTE | 2020-07-14 09:39 | Diagnostic Imaging Report ---
INDICATION: Shortness of breath. Comparison made with prior examination of 07/14/2020. FINDINGS: There is cardiomegaly. There are patchy bibasilar infiltrates. No pleural effusion or pneumothorax. Mediastinum is unremarkable. There is a right upper extremity PICC line which has its tip in superior vena cava. IMPRESSION: The PICC line is in satisfactory position. Patchy bibasilar pulmonary infiltrates. Dictated by: Dictated on workstation # [id number]
--- NOTE | 2020-07-14 10:15 | Progress Note ---
Subjective Date Seen by a Provider: Jul 14, 2020 Time Seen by a Provider: 09:30 Subjective/Events-last exam Pt having more difficulties Diminished breath sounds noted Moving up to cardiac step down unit Appreciate Dr. Miller evaluation Eating and drinking well Bowels moved yesterday Review of Systems General: Fatigue, Malaise Pulmonary: Dyspnea, Cough Objective Exam Last Set of Vital Signs Vital Signs Date Time Temp Pulse Resp B/P (MAP) Pulse Ox O2 Delivery O2 Flow Rate FiO2 07/14/20 08:05 37.4 76 20 135/60 (85) 93 Vapotherm 25.00 75.00 07/14/20 07:01 75 Capillary Refill : Less Than 3 SecondsLess Than 3 Seconds I&O Intake and Output0 07/14/20 00:00 Intake Total 2045 ml Output Total 750 ml Balance 1295 ml Intake Oral 1925 ml IV Total 120 ml Output Urine Total 750 ml # Voids 4 General: Alert, Oriented X3, Cooperative, No Acute Distress Lungs: Other (diminished) Heart: Regular Rate Neuro: Normal Gait Results Lab Laboratory Tests 07/14/20 05:32: White Blood Count 8.8, Red Blood Count 3.98L, Hemoglobin 12.3L, Hematocrit 36L, Mean Corpuscular Volume 91, Mean Corpuscular Hemoglobin 31, Mean Corpuscular Hemoglobin Concent 34, Red Cell Distribution Width 12.2, Platelet Count 263, M alicia Platelet Volume 10.8, Immature Granulocyte % (Auto) 2, Neutrophils (%) (Auto) 81H, Lymphocytes (%) (Auto) 12, Monocytes (%) (Auto) 5, Eosinophils (%) (Auto) 0, Basophils (%) (Auto) 0, Neutrophils # (Auto) 7.1, Lymphocytes # (Auto) 1.0, Monocytes # (Auto) 0.4, Eosinophils # (Auto) 0.0, Basophils # (Auto) 0.0, Immature Granulocyte # (Auto) 0.2H, D-Dimer 1.58H, Sodium Level 132L, Potassium Level 3.1L, Chloride Level 96L, Carbon Dioxide Level 23, Anion Gap 13, Blood Urea Nitrogen 38H, Creatinine 0.97, Estimat Glomerular Filtration Rate > 60, BUN/Creatinine Ratio 39, Glucose Level 106H, Calcium Level 8.4L, Corrected Calcium 9.2, Phosphorus Level 2.7, Magnesium Level 2.0, Total Bilirubin 0.7, Aspartate Amino Transf (AST/SGOT) 77H, Alanine Aminotransferase (ALT/SGPT) 52, Alkaline Phosphatase 66, Total Protein 6.3L, Albumin 3.0L, Procalcitonin 0.29H 07/14/20 07:02: Blood Gas Puncture Site RT BRACH, Blood Gas Patient Temperature 37.0, Arterial Blood pH 7.49H, Arterial Blood Partial Pressure CO2 34L, Arterial Blood Partial Pressure O2 64L, Arterial Blood HCO3 26, Arterial Blood Total CO2 26.8, Arterial Blood Oxygen Saturation 92L, Arterial Blood Base Excess 2.6H, Qamar Test YES- POS, Blood Gas Ventilator Setting NO, Blood Gas Inspired Oxygen 75% Microbiology 07/03/20 MRSA Screen - Final, Complete MRSA not isolated 07/03/20 Blood Culture - Final, Complete No growth Assessment/Plan Assessment/Plan Assess & Plan/Chief Complaint Assessment per Dr Veras with my modifications: Acute respiratory failure secondary to COVID 19 severe ARDS -Changed to NC from Vapotherm - Pt appears better this AM Right sided pleuritic CP/Presumed acute PE -Increase Lovenox to 1mg/kg BID 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
[2020-07-14] MEDS: CALCIUM ACETATE 667 MG CAP (PHOSLO) PO SCH ×3 (10:20→17:37)
[2020-07-14] MEDS: CHLORTHALIDONE 25 MG (HYGROTON) TABLET PO SCH (10:21)
[2020-07-14] MEDS: guaiFENesin (MUCINEX) 600 MG TAB PO SCH ×2 (10:21→20:48)
[2020-07-14] MEDS: ASPIRIN E.C. 81 MG (ECOTRIN) TAB PO SCH (10:21)
[2020-07-14] MEDS: amLODIPine 10 MG (NORVASC) TAB PO SCH (10:22)
[2020-07-14] MEDS: ZINC SULFATE 220 MG CAPSULE PO SCH (10:22)
[2020-07-14] MEDS: DORZOLAMIDE/TIMOLOL (COSOPT) 2-0.68% 10 ML BTL OU SCH ×2 (10:23→20:48)
[2020-07-14] MEDS: CLOPIDOGREL 75 MG (PLAVIX) TABLET PO SCH (10:23)
[2020-07-14] MEDS: FAMOTIDINE 20MG/2ML IV (PEPCID) IV SCH (10:24)
[2020-07-14] MEDS: BRIMONIDINE 0.2% (ALPHAGAN) OPHTH SOLN 5 ML BTL OU SCH ×2 (10:24→20:45)
[2020-07-14] MEDS: DOCUSATE SODIUM 100 MG (COLACE) CAP PO SCH ×2 (10:26→20:44)
--- NOTE | 2020-07-14 10:54 | Cardiology Progress Note ---
Subjective Date Seen by Provider: Jul 14, 2020 Time Seen by Provider: 10:52 Subjective/Events-last exam Patient had progressive worsening of shortness of breath over the last 24 hours, currently on Vapotherm Review of Systems General: Fatigue, Malaise Pulmonary: Dyspnea Cardiovascular: Edema; No: Chest Pain, Palpitations, Orthopnea, Paroxysmal Noc. Dyspnea, Lt Headedness, Other Objective-Cardiology Exam Last Set of Vital Signs Vital Signs 07/14/20 07/14/20 07:01 08:05 Temp 37.4 Pulse 76 Resp 20 B/P (MAP) 135/60 (85) Pulse Ox 93 O2 Delivery Vapotherm O2 Flow Rate 25.00 75.00 FiO2 75 Capillary Refill : Less Than 3 SecondsLess Than 3 Seconds I&O Intake and Output 07/14/20 00:00 Intake Total 2045 ml Output Total 750 ml Balance 1295 ml Intake Oral 1925 ml IV Total 120 ml Output Urine Total 750 ml # Voids 4 General: Alert HEENT: Atraumatic Lungs: Other (shortness of breath) Heart: Regular Rate Neuro: Normal Speech Psych/Mental Status: Mental Status NL Results Lab Laboratory Tests 07/14/20 05:32 A/P-Cardiology Admission Diagnosis Acute respiratory failure COVID-19 pneumonia Coronary artery disease Aortic valve stenosis Assessment/Plan Acute respiratory failure, waxing and waning, deteriorated over the past 24 hours, currently on Vapotherm, ARDS. COVID-19 pneumonia, worsening today, transferred to intensive care unit Coronary artery disease, type II myocardial infarction, known to have history of coronary artery disease, cardiac catheterization done on July 05, [address] Arevalo showing patent stent in the proximal LAD, mid circumflex and proximal and midright coronary artery with mild in-stent restenosis. Had 60 percent mid circumflex lesion, 60-70 percent distal right coronary artery stenosis, moderate severe aortic regurgitation Echo showed severe aortic stenosis, valve area 0.7 cm, moderate aortic regurgitation, EF 50-55 percent done in June 2019, conservative management for now, consideration for valve replacement procedure Borderline hypotension, better at this time JENI SILVA MD Jul 14, 2020 10:54
[2020-07-14] MEDS: ENOXAPARIN 40 MG/0.4 ML (LOVENOX) SYR SQ SCH (11:22)
--- NOTE | 2020-07-14 12:43 | NUR ---
PATIENT BEING TRANSFERRED TO CARDIAC STEP DOWN PER DR. MCNEIL. REPORT CALLED TO RYANNE.
--- NOTE | 2020-07-14 14:28 | Physical Therapy Progress Note ---
Therapy Progress Note Pt transferred to [facility]. Will await new orders to continue skilled PT. Will follow with the nurse. SAL GARCIA PT Jul 14, 2020 14:28
--- NOTE | 2020-07-14 15:23 | NUR ---
CM/SS: [facility] They do not show the pt living in [place], [place] they show him to live in [place], [place]. This verified. Pt does live in [place], [place]. [facility] - [phone] - EXT [id number] DEXTER
[2020-07-14] MEDS: PIPERACILLIN/TAZOBACTAM (BULK) 4.5 GM in NS (IVPB) 100 ML IV SCH ×2 (15:36→20:44)
--- NOTE | 2020-07-14 15:37 | NUR ---
CM/SS: [facility] [phone] EXT [id number]
[2020-07-14] MEDS: ROSUVASTATIN 20 MG (CRESTOR) TABLET PO SCH (20:44)
[2020-07-14] MEDS: guaiFENesin/DM (ROBITUSSIN DM) 10 ML UDC PO PRN (20:44)
[2020-07-15] VITALS (15 sets, daily range): BP systolic 94–124; BP diastolic 54–71
[2020-07-15] MEDS: RT-ALBUTEROL INHALER HFA (VENTOLIN HFA) 18 GM IH SCH ×6 (02:41→23:36)
[2020-07-15] MEDS: IPRATROPIUM INHALER (ATROVENT) 12.9 GM INH SCH ×6 (02:43→23:36)
[2020-07-15 03:30] LABS: BASOPHILS % (AUTO) 0 % (0-10); EOSINOPHILS % (AUTO) 0 % (0-10); HEMATOCRIT 34 % (40-54); HEMOGLOBIN 11.4 g/dL (13.3-17.7); LYMPHOCYTES # (AUTO) 0.8 10^3/uL (1.0-4.0); LYMPHOCYTES % (AUTO) 10 % (12-44); MEAN CORPUSCULAR HEMOGLOBIN 31 pg (25-34); MEAN CORPUSCULAR HGB CONC 34 g/dL (32-36); MEAN CORPUSCULAR VOLUME 92 fL (80-99); MONOCYTES # (AUTO) 0.4 10^3/uL (0.0-1.0); MONOCYTES % (AUTO) 5 % (0-12); NEUTROPHILS # (AUTO) 6.4 10^3/uL (1.8-7.8); NEUTROPHILS % (AUTO) 82 % (42-75); PLATELET COUNT 245 10^3/uL (130-400); WHITE BLOOD COUNT 7.8 10^3/uL (4.3-11.0)
[2020-07-15 03:44] LABS: CHLORIDE 97 MMOL/L (98-107); POTASSIUM 3.3 MMOL/L (3.6-5.0); SODIUM 133 MMOL/L (135-145)
[2020-07-15 03:45] LABS: CALCIUM 7.9 MG/DL (8.5-10.1)
[2020-07-15 03:46] LABS: GLUCOSE 107 MG/DL (70-105)
[2020-07-15 03:47] LABS: CARBON DIOXIDE 24 MMOL/L (21-32)
[2020-07-15 03:49] LABS: CREATININE SERUM 1.11 MG/DL (0.60-1.30); GFR ESTIMATED > 60; PHOSPHORUS 2.6 MG/DL (2.3-4.7)
[2020-07-15 03:50] LABS: BUN/CREATININE RATIO 33
[2020-07-15 03:52] LABS: MAGNESIUM 1.9 MG/DL (1.6-2.4)
--- NOTE | 2020-07-15 04:44 | Pulmonary Progress Note ---
Subjective Time Seen by a Provider: 04:44 Sepsis Event Evaluation Height, Weight, BMI Height: '" Weight: lbs. oz. kg; 29.27 BMI Method: Exam Exam Vital Signs Date Time Temp Pulse Resp B/P (MAP) Pulse Ox O2 Delivery O2 Flow Rate FiO2 07/15/20 04:00 36.4 68 24 103/59 (74) 97 Vapotherm 30.00 100.00 07/15/20 02:43 92 Vapotherm 30.00 100 07/15/20 02:41 93 Vapotherm 30.00 100 07/15/20 00:34 76 07/15/20 00:00 37.5 73 22 95/54 (68) Vapotherm 30.00 80.00 07/14/20 23:07 37.2 80 94 80 07/14/20 22:41 94 Vapotherm 30.00 80 07/14/20 22:33 95 Vapotherm 30.00 85 07/14/20 20:18 37.2 80 14 103/53 (70) 95 Vapotherm 30.00 80.00 07/14/20 20:00 80 Vapotherm 30.00 07/14/20 19:00 79 07/14/20 18:40 92 Vapotherm 30.00 85 07/14/20 18:35 91 Vapotherm 30.00 85 07/14/20 18:30 88 Vapotherm 30.00 80 07/14/20 16:20 37.2 91 28 98/53 (68) 94 Vapotherm 30.00 80.00 07/14/20 15:00 95 Vapotherm 30.00 80 07/14/20 15:00 95 Vapotherm 30.00 80 07/14/20 13:04 37.3 89 28 118/63 (81) 97 Vapotherm 30.00 80.00 07/14/20 13:02 86 07/14/20 10:49 92 Vapotherm 25.00 80 07/14/20 10:49 92 Vapotherm 25.00 80 07/14/20 08:05 37.4 76 20 135/60 (85) 93 Vapotherm 25.00 75.00 07/14/20 08:00 92 Vapotherm 25.00 07/14/20 07:01 95 Vapotherm 25.00 75 07/14/20 07:01 92 Vapotherm 25.00 80 07/14/20 07:01 93 Vapotherm 25.00 75 I & O 07/15/20 07:00 Intake Total 1580 ml Output Total 350 ml Balance 1230 ml Height & Weight Height: '" Weight: lbs. oz. kg; 29.27 BMI Method: General Appearance: WD/WN, Anxious, Mild Distress HEENT: PERRL/EOMI, TMs Normal Neck: Full Range of Motion, Normal Inspection, Non Tender Respiratory: Chest Non Tender, Normal Breath Sounds, Crackles, Decreased Breath Sounds Cardiovascular: Regular Rate, Rhythm, No Edema, No Gallop, No JVD, No Murmur, Normal Peripheral Pulses Capillary Refill: Less Than 3 Seconds Gastrointestinal: normal bowel sounds, non tender, soft Extremity: Normal Capillary Refill, Normal Inspection Neurologic/Psychiatric: Alert, Oriented x3, No Motor/Sensory Deficits, Normal Mood/Affect Skin: Normal Color, Warm/Dry Lymphatic: No Adenopathy Results Lab Laboratory Tests 07/14/20 05:32 07/15/20 03:00 Assessment/Plan Assessment/Plan Acute respiratory failure secondary to COVID 19 severe ARDS -Pt is now requiring 80% Vapotherm - Zosyn -- restart - CXR, ABG, PCT, and DDIMER -Echo EF 50-55% -Dx 07/03 - Decadron -- hold -CVP -Prone as tolerated -Pt does not qualify for remdesivir Acute renal failure -Hold lasix -Hold Lisinopril -Continue to monitor 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
[2020-07-15] MEDS ORDERED: FUROSEMIDE 40 MG/4 ML INJ (LASIX) IVP ONE (04:45)
[2020-07-15] MEDS: POTASSIUM CL 10MEQ/50ML IVPB 50 ML IV SCH ×6 (05:31→13:03)
[2020-07-15] MEDS: PIPERACILLIN/TAZOBACTAM (BULK) 4.5 GM in NS (IVPB) 100 ML IV SCH ×3 (05:31→21:13)
[2020-07-15] MEDS: guaiFENesin/DM (ROBITUSSIN DM) 10 ML UDC PO PRN (06:35)
[2020-07-15] MEDS: MULTIVIT W/MINERALS TAB (THERAGRAN M) PO SCH (06:35)
--- NOTE | 2020-07-15 07:17 | Diagnostic Imaging Report ---
Indication: Pneumonia Comparison: 07/14/2020 Findings: Single view of the chest demonstrates worsening basilar infiltrates. The heart is prominent but stable. There is no pneumothorax or large effusion. PICC line is stable. Impression: Slightly worsening bilateral pulmonary infiltrates. Dictated by: Dictated on workstation # [id number]
[2020-07-15] MEDS: ADVAIR HFA 115/21 MCG INHALER 8 GM IH SCH ×2 (07:25→19:50)
[2020-07-15] MEDS: FAMOTIDINE 20MG/2ML IV (PEPCID) IV SCH (08:11)
[2020-07-15] MEDS: CALCIUM ACETATE 667 MG CAP (PHOSLO) PO SCH ×3 (08:12→18:30)
[2020-07-15] MEDS: ENOXAPARIN 40 MG/0.4 ML (LOVENOX) SYR SQ SCH (08:12)
[2020-07-15] MEDS: amLODIPine 10 MG (NORVASC) TAB PO SCH (08:12)
[2020-07-15] MEDS: guaiFENesin (MUCINEX) 600 MG TAB PO SCH ×2 (08:12→21:13)
[2020-07-15] MEDS: ZINC SULFATE 220 MG CAPSULE PO SCH (08:12)
[2020-07-15] MEDS: CLOPIDOGREL 75 MG (PLAVIX) TABLET PO SCH (08:12)
[2020-07-15] MEDS: CHLORTHALIDONE 25 MG (HYGROTON) TABLET PO SCH (08:12)
[2020-07-15] MEDS: ASPIRIN E.C. 81 MG (ECOTRIN) TAB PO SCH (08:12)
[2020-07-15] MEDS: DORZOLAMIDE/TIMOLOL (COSOPT) 2-0.68% 10 ML BTL OU SCH ×2 (08:15→21:13)
[2020-07-15] MEDS: BRIMONIDINE 0.2% (ALPHAGAN) OPHTH SOLN 5 ML BTL OU SCH ×3 (08:15→21:20)
[2020-07-15] MEDS: DOCUSATE SODIUM 100 MG (COLACE) CAP PO SCH ×2 (08:15→21:13)
[2020-07-15] MEDS ORDERED: NITROGLYCERIN 0.4 MG SL TABS BTL 25'S SL PRN (09:15)
--- NOTE | 2020-07-15 09:38 | Progress Note ---
Subjective Date Seen by a Provider: Jul 15, 2020 Time Seen by a Provider: 09:30 Subjective/Events-last exam Moving to ICU from 511 due to biPAP now Appreciate Dr Veras Very difficult situation Lungs are compromised Checked meds and labs Review of Systems General: Fatigue Pulmonary: Dyspnea, Cough Objective Exam Last Set of Vital Signs Vital Signs Date Time Temp Pulse Resp B/P (MAP) Pulse Ox O2 Delivery O2 Flow Rate FiO2 07/15/20 08:25 76 19 99 100.00 07/15/20 08:20 NIV Bilevel 07/15/20 08:00 36.4 107/55 (72) 07/15/20 08:00 100 Capillary Refill : Less Than 3 SecondsLess Than 3 Seconds I&O Intake and Output 07/15/20 00:00 Intake Total 2060 ml Output Total 800 ml Balance 1260 ml Intake Oral 1440 ml IV Total 620 ml Output Urine Total 800 ml General: Alert, Oriented X3, Cooperative, No Acute Distress Lungs: Clear to Auscultation, Normal Air Movement, Other (decreased BS) Heart: Regular Rate, Normal S1, Normal S2, No Murmurs Results Lab Laboratory Tests 07/15/20 03:00: White Blood Count 7.8, Red Blood Count 3.67L, Hemoglobin 11.4L, Hematocrit 34L, Mean Corpuscular Volume 92, Mean Corpuscular Hemoglobin 31, Mean Corpuscular Hemoglobin Concent 34, Red Cell Distribution Width 12.3, Platelet Count 245, Mean Platelet Volume 11.0, Immature Granulocyte % (Auto) 2, Neutrophils (%) (Auto) 82H, Lymphocytes (%) (Auto) 10L, Monocytes (%) (Auto) 5, Eosinophils (%) (Auto) 0, Basophils (%) (Auto) 0, Neutrophils # (Auto) 6.4, Lymphocytes # (Auto) 0.8L, Monocytes # (Auto) 0.4, Eosinophils # (Auto) 0.0, Basophils # (Auto) 0.0, Immature Granulocyte # (Auto) 0.1, Sodium Level 133L, Potassium Level 3.3L, Chl oride Level 97L, Carbon Dioxide Level 24, Anion Gap 12, Blood Urea Nitrogen 37H, Creatinine 1.11, Estimat Glomerular Filtration Rate > 60, BUN/Creatinine Ratio 33, Glucose Level 107H, Calcium Level 7.9L, Phosphorus Level 2.6, Magnesium Level 1.9, B-Type Natriuretic Peptide 467.6H Microbiology 07/03/20 MRSA Screen - Final, Complete MRSA not isolated 07/03/20 Blood Culture - Final, Complete No growth Assessment/Plan Assessment/Plan Assess & Plan/Chief Complaint Assessment per Dr Veras with my modifications: Acute respiratory failure secondary to COVID 19 severe ARDS -Changed to NC from Vapotherm - Pt appears better this AM Right sided pleuritic CP/Presumed acute PE -Increase Lovenox to 1mg/kg BID 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
--- NOTE | 2020-07-15 11:06 | Physical Therapy Daily Note ---
PT Daily Note-Current Subjective Pt agrees to light bed exercises. No complaints of pain. Questions this therapist, "Is this (COVID) coming back on me?" Mental Status Patient Orientation: Person, Place, Time, Situation Transfers SCALE: Activities may be completed with or without assistive devices. 7-Sxsxsguifl-laqcywm completes the activity by him/herself with no assistance from a helper. 5-Set-up or Clean-up Assistance-helper sets up or cleans up; patient completes activity. [place] assists only prior to or following the activity. 4-Supervision or Touching Assistance-helper provides verbal cues and/or touching/steadying and/or contact guard assistance as patient completes activity. Assistance may be provided throughout the activity or intermittently. 3-Partial/Moderate Assistance-helper does LESS THAN HALF the effort. [place] lifts, holds or supports trunk or limbs, but provides less than half the effort. 2-Substantial/Maximal Assistance-helper does MORE THAN HALF the effort. [place] lifts or holds trunk or limbs and provides more than half the effort. 6-Vipzappbh-hzstqe does ALL the effort. Patient does none of the effort to complete the activity. Or, the assistance of 2 or more helpers is required for the patient to complete the activity. If activity was not attempted, code reason: 7-Patient Refused. 9-Not Applicable-not attempted and the patient did not perform the activity before the current illness, exacerbation or injury. 10-Not Attempted due to Environmental Limitations-(lack of equipment, weather restraints, etc.). 88-Not Attempted due to Medical Conditions or Safety Concerns. Exercises Supine Ex: Ankle pumps, Quad Set, Glut sets, Heel Slides, Hip abd/add Supine Reps: 6 (To facilitate AROM, circulation and functional strength. ) Treatments Discussed frequent movement and position of LE to reduce risk of blood clot and to reduce risk of skin breakdown. SCD's in place and heels elevated post treatment. Oxygen sats stayed at 94-96% throughout treatment while on bipap. Assessment Pt transferred to ICU due to BiPap placement. Appears tired and a bit groggy this date. Due to work of breathing and medical status, only bed exercises performed this date. Functional mobility not assessed this visit, but POC will remain in same in that the goals are for patient to be mod indep with all mobility and treatment plan remains the same for functional strength, balance and mobility to allow pt to return home as he was before. Will continue to progress activity and promote upright mobiltiy as patient is able. PT Mining Helper Goals Senior Care Goals PT Senior Care Goals Time Frame: Jul 17, 2020 Roll Left & Right (QC): 6 Sit to Lying (QC): 6 Lying-Sitting on Side/Bed(QC): 6 Sit to Stand (QC): 6 Chair/Fgr-nx-Ypzzw Xfer(QC): 6 Toilet Transfer (QC): 6 Walk 150 ft (QC): 6 PT Plan Problem List Problem List: Activity Tolerance, Functional Strength, Safety, Balance, Gait, Transfer, Bed Mobility Treatment/Plan Treatment Plan: Continue Plan of Care Treatment Plan: Bed Mobility, Education, Functional Activity Jessica, Functional Strength, Gait, Safety, Therapeutic Exercise, Transfers Treatment Duration: Jul 17, 2020 Frequency: 6 times per week Estimated Hrs Per Day: .5 hour per day Patient and/or Family Agrees t: Yes Safety Risks/Education Patient Education: Disease Process, Safety Issues Teaching Recipient: Patient Teaching Methods: Discussion Response to Teaching: Verbalize Understanding Time/GCodes Time In: 1030 Time Out: 1045 Total Billed Treatment Time: 15 Total Billed Treatment visit EX 15 SAL GARCIA PT Jul 15, 2020 11:06
--- NOTE | 2020-07-15 13:13 | Occupational Therapy Eval ---
OT Evaluation-General/PLF Medical Diagnosis Admission Date Jul 03, 2020 at 09:00 Medical Diagnosis: NSTEMI; COVID Onset Date: Jul 10, 2020 Therapy Diagnosis Therapy Diagnosis: weakness Precautions Precautions/Isolations: Airborne Isolation, Fall Prevention Weight Bear Status Weight Bearing Restriction: Weight Bearing/Tolerated Referral Physician: Eda Lopez Reason: Activity Tolerance, Self Care, Evaluation/Treatment, Strengthening/ROM Medical History Current History Severe ARDS due to COVID, acute renal failure, hypotension Social History Home: Single Level Current Living Status: Alone (Family next door) Entry Into Home: Stairs With Railing ADL-Prior Level of Function SCALE: Activities may be completed with or without assistive devices. 6-Fwoodyyupm-vhfsqcf completes the activity by him/herself with no assistance from a helper. 5-Set-up or Clean-up Assistance-helper sets up or cleans up; patient completes activity. [place] assists only prior to or following the activity. 4-Supervision or Touching Assistance-helper provides verbal cues and/or touching/steadying and/or contact guard assistance as patient completes activ ity. Assistance may be provided throughout the activity or intermittently. 3-Partial/Moderate Assistance-helper does LESS THAN HALF the effort. [place] lifts, holds or supports trunk or limbs, but provides less than half the effort. 2-Substantial/Maximal Assistance-helper does MORE THAN HALF the effort. [place] lifts or holds trunk or limbs and provides more than half the effort. 4-Zioyziqff-yswvli does ALL the effort. Patient does none of the effort to complete the activity. Or, the assistance of 2 or more helpers is required for the patient to complete the activity. If activity was not attempted, code reason: 7-Patient Refused. 9-Not Applicable-not attempted and the patient did not perform the activity before the current illness, exacerbation or injury. 10-Not Attempted due to Environmental Limitations-(lack of equipment, weather restraints, etc.). 88-Not Attempted due to Medical Conditions or Safety Concerns. ADL PLOF Comments Based on previous OT Evaluation, pt independent with all tasks, no AD, and drives. Pt unable to provide much information during this evaluation due to BiPAP Self Care: Independent Functional Cognition: Independent OT Current Status Subjective Pt laying in bed, agreeable to OT evaluation/tx. Mental Status/Objective Attachments: IV, Oxygen (BiPAP) Current Hand Dominance: Right Upper Extremity ROM WFL, Other Treatments OT educated pt on purpose and benefit of OT. Pt currently on BiPAP. Due to work of breathing and medical status (recent transfer to ICU and BiPAP placement), only bed exercises performed on this date. OT educated pt on purpose and benefits of exercise, pt able to complete x10 reps BUE shoulder flexion, x15 reps BUE elbow flexion/extension, and x10 reps finger flexion BUEs. OT instructed pt to complete exercises throughout the day, increasing reps as tolerated, pt nods head in agreement. Pt's O2 remained above 98% on BiPAP throughout exercises. Post tx, pt laying in bed, call light in reach and all needs met. Education OT Patient Education: Correct positioning, Exercise program, Modified ADL techniques, Progress toward Goal/Update tx plan, Purpose of tx/functional activities Teaching Recipient: Patient Teaching Methods: Discussion Response to Teaching: Verbalize Understanding OT [place] Wheel Worker Goals Detention Goals Time Frame: Aug 01, 2020 Eating (QC): 6 Oral Hygiene (QC): 6 Toileting Hygiene (QC): 6 Shower/Bathe Self (QC): 6 Upper Body Dressing (QC): 6 Lower Body Dressing (QC): 6 On/Off Footwear (QC): 6 Additional Goals: 1-Demonstrate ADL Tasks, 2-Verbalize Understanding, 3- ImproveStrength/Jessica 1=Demonstrate adherence to instructed precautions during ADL tasks. 2=Patient will verbalize/demonstrate understanding of assistive devices/modifications for ADL. 3=Patient will improve strength/tolerance for activity to enable patient to perform ADL's. OT Education/Plan Problem List/Assessment Assessment: Decreased Activ Tolerance, Decreased UE Strength, Impaired I ADL's, Impaired Self-Care Skills Discharge Recommendations Plan/Recommendations: Continue POC Treatment Plan/Plan of Care Patient would benefit from OT for education, treatment and training to promote independence in ADL's, mobility, safety and/or upper extremity function for ADL's. Plan of Care: ADL Retraining, Functional Mobility, UE Funct Exercise/Act Treatment Duration: Aug 01, 2020 Frequency: 5 times per week Estimated Hrs Per Day: .25 hour per day Rehab Potential: Good Time/GCodes Start Time: 11:32 Stop Time: 11:42 Total Time Billed (hr/min): 10 Billed Treatment Time 1, KEATON ESPINO OT Jul 15, 2020 13:13
[2020-07-15] MEDS: ROSUVASTATIN 20 MG (CRESTOR) TABLET PO SCH (21:13)
[2020-07-16] VITALS (20 sets, daily range): BP systolic 101–141; BP diastolic 55–76
[2020-07-16] MEDS: RT-ALBUTEROL INHALER HFA (VENTOLIN HFA) 18 GM IH SCH ×6 (02:13→22:05)
[2020-07-16] MEDS: IPRATROPIUM INHALER (ATROVENT) 12.9 GM INH SCH ×6 (02:13→22:05)
[2020-07-16 02:49] LABS: ABG BASE EXCESS 0.7 MMOL/L (-2.5-2.5); ABG OXYGEN SATURATION 96 % (94-100); ABG PCO2 36 MMHG (35-45); ABG PH 7.44 (7.37-7.43); ABG PO2 85 MMHG (79-93); ABG TCO2 25.7 MMOL/L (21.0-31.0)
[2020-07-16 02:50] LABS: BASOPHILS % (AUTO) 0 % (0-10); EOSINOPHILS % (AUTO) 0 % (0-10); HEMATOCRIT 35 % (40-54); HEMOGLOBIN 11.9 g/dL (13.3-17.7); LYMPHOCYTES # (AUTO) 0.7 10^3/uL (1.0-4.0); LYMPHOCYTES % (AUTO) 17 % (12-44); MEAN CORPUSCULAR HEMOGLOBIN 31 pg (25-34); MEAN CORPUSCULAR HGB CONC 34 g/dL (32-36); MEAN CORPUSCULAR VOLUME 91 fL (80-99); MEAN PLATELET VOLUME 11.2 fL (9.0-12.2); MONOCYTES # (AUTO) 0.2 10^3/uL (0.0-1.0); MONOCYTES % (AUTO) 5 % (0-12); NEUTROPHILS # (AUTO) 3.2 10^3/uL (1.8-7.8); NEUTROPHILS % (AUTO) 76 % (42-75); PLATELET COUNT 269 10^3/uL (130-400); WHITE BLOOD COUNT 4.2 10^3/uL (4.3-11.0)
[2020-07-16 02:50] LABS: ALLENS TEST NEGATIVE; INSPIRED O2 60; PATIENT TEMP 36.2; VENTILATOR NO
[2020-07-16 03:00] LABS: CHLORIDE 97 MMOL/L (98-107); POTASSIUM 3.4 MMOL/L (3.6-5.0); SODIUM 134 MMOL/L (135-145)
[2020-07-16 03:01] LABS: CALCIUM 8.2 MG/DL (8.5-10.1); GLUCOSE 186 MG/DL (70-105)
[2020-07-16 03:03] LABS: CARBON DIOXIDE 23 MMOL/L (21-32)
[2020-07-16 03:05] LABS: CREATININE SERUM 1.13 MG/DL (0.60-1.30); GFR ESTIMATED > 60; PHOSPHORUS 3.4 MG/DL (2.3-4.7)
[2020-07-16 03:06] LABS: BUN/CREATININE RATIO 37
[2020-07-16 03:08] LABS: MAGNESIUM 2.3 MG/DL (1.6-2.4)
[2020-07-16] MEDS ORDERED: FUROSEMIDE 40 MG/4 ML INJ (LASIX) IVP ONE (04:30)
--- NOTE | 2020-07-16 04:31 | Pulmonary Progress Note ---
Subjective Time Seen by a Provider: 04:26 Sepsis Event Evaluation Height, Weight, BMI Height: '" Weight: lbs. oz. kg; 29.27 BMI Method: Exam Exam Vital Signs Date Time Temp Pulse Resp B/P (MAP) Pulse Ox O2 Delivery O2 Flow Rate FiO2 07/16/20 03:00 57 34 114/60 (78) 93 NIV Bilevel 60.00 07/16/20 02:43 62 31 96 NIV Bilevel 60.00 07/16/20 02:14 63 16 91 60.00 07/16/20 02:00 73 21 127/65 (85) 93 NIV Bilevel 45.00 07/16/20 01:00 56 13 102/60 (74) 96 NIV Bilevel 45.00 07/16/20 01:00 56 07/16/20 00:48 NIV Bilevel 45.00 07/16/20 00:00 57 16 101/55 (70) 92 NIV Bilevel 50.00 07/15/20 23:18 36.0 07/15/20 23:10 60 14 96 NIV Bilevel 50.00 07/15/20 23:04 60 23 103/61 (75) 97 NIV Bilevel 70.00 07/15/20 22:30 36.1 NIV Bilevel 70.00 07/15/20 22:00 64 105/58 (81) 100 NIV Bilevel 80.00 07/15/20 21:00 69 21 100/56 (73) 94 NIV Bilevel 80.00 07/15/20 20:00 92 NIV Bilevel 80 07/15/20 20:00 68 19 110/63 (79) 97 NIV Bilevel 80.00 07/15/20 19:50 69 20 95 80.00 07/15/20 19:30 34.4 07/15/20 19:25 91 NIV Bilevel 80.00 07/15/20 19:20 83 Vapotherm 30.00 55.00 07/15/20 19:00 74 07/15/20 19:00 74 22 117/67 (88) 96 NIV Bilevel 80.00 07/15/20 18:00 74 27 113/62 (79) 98 NIV Bilevel 80.00 07/15/20 17:00 75 17 104/62 (76) 99 NIV Bilevel 80.00 07/15/20 16:00 73 28 105/65 (78) 100 NIV Bilevel 80.00 07/15/20 15:15 NIV Bilevel 80.00 07/15/20 15:06 36.1 07/15/20 15:00 78 27 94/61 (72) 91 Vapotherm 30.00 55.00 07/15/20 14:30 Vapotherm 30.00 55.00 07/15/20 14:00 79 19 124/71 (88) 95 NIV Bilevel 80.00 07/15/20 13:48 98 Vapotherm 30.00 60 07/15/20 13:48 98 Vapotherm 30.00 55 07/15/20 13:00 76 07/15/20 12:00 75 18 113/63 (80) 94 NIV Bilevel 80.00 07/15/20 11:32 98 NIV Bilevel 80 07/15/20 11:30 76 19 98 80.00 07/15/20 11:25 36.0 07/15/20 10:00 76 24 101/58 (72) 94 NIV Bilevel 80.00 07/15/20 08:25 76 19 99 100.00 07/15/20 08:20 NIV Bilevel 80.00 07/15/20 08:00 36.4 77 24 107/55 (72) 93 Vapotherm 40.00 100.00 07/15/20 08:00 93 Vapotherm 40.00 100 07/15/20 07:25 95 Vapotherm 40.00 100 07/15/20 07:24 73 07/15/20 07:22 95 Vapotherm 40.00 100 07/15/20 07:20 87 Vapotherm 30.00 100 I & O 07/16/20 07:00 Intake Total 740 ml Output Total 950 ml Balance -210 ml Height & Weight Height: '" Weight: lbs. oz. kg; 29.27 BMI Method: General Appearance: WD/WN, Anxious, Mild Distress HEENT: PERRL/EOMI, TMs Normal Neck: Full Range of Motion, Normal Inspection, Non Tender Respiratory: Chest Non Tender, Normal Breath Sounds, Crackles, Decreased Breath Sounds Cardiovascular: Regular Rate, Rhythm, No Edema, No Gallop, No JVD, No Murmur, Normal Peripheral Pulses Capillary Refill: Less Than 3 Seconds Gastrointestinal: normal bowel sounds, non tender, soft Extremity: Normal Capillary Refill, Normal Inspection Neurologic/Psychiatric: Alert, Oriented x3, No Motor/Sensory Deficits, Normal Mood/Affect Skin: Normal Color, Warm/Dry Lymphatic: No Adenopathy Results Lab Laboratory Tests 07/14/20 05:32 07/15/20 03:00 07/16/20 02:25 Assessment/Plan Assessment/Plan Acute respiratory failure secondary to COVID 19 severe ARDS -BiPAP trial to Vapotherm this AM - Zosyn -- - CXR, ABG, PCT, and DDIMER -Echo EF 50-55% -Dx 07/03 - Decadron -- hold -CVP -Prone as tolerated -Pt does not qualify for remdesivir Acute renal failure -Hold lasix -Hold Lisinopril -Continue to monitor 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
[2020-07-16] MEDS: POTASSIUM CL 10MEQ/50ML IVPB 50 ML IV SCH ×7 (06:43→15:00)
[2020-07-16] MEDS: PIPERACILLIN/TAZOBACTAM (BULK) 4.5 GM in NS (IVPB) 100 ML IV SCH ×3 (06:43→23:39)
[2020-07-16] MEDS: MULTIVIT W/MINERALS TAB (THERAGRAN M) PO SCH (06:44)
[2020-07-16] MEDS: ADVAIR HFA 115/21 MCG INHALER 8 GM IH SCH ×2 (07:27→18:46)
[2020-07-16] MEDS: ASPIRIN E.C. 81 MG (ECOTRIN) TAB PO SCH (07:57)
[2020-07-16] MEDS: CLOPIDOGREL 75 MG (PLAVIX) TABLET PO SCH (07:57)
[2020-07-16] MEDS: CHLORTHALIDONE 25 MG (HYGROTON) TABLET PO SCH (07:57)
[2020-07-16] MEDS: FAMOTIDINE 20MG/2ML IV (PEPCID) IV SCH (07:57)
[2020-07-16] MEDS: CALCIUM ACETATE 667 MG CAP (PHOSLO) PO SCH ×3 (07:58→17:51)
[2020-07-16] MEDS: guaiFENesin (MUCINEX) 600 MG TAB PO SCH ×2 (07:58→19:38)
[2020-07-16] MEDS: DOCUSATE SODIUM 100 MG (COLACE) CAP PO SCH ×2 (07:58→19:11)
[2020-07-16] MEDS: ZINC SULFATE 220 MG CAPSULE PO SCH (07:58)
[2020-07-16] MEDS: BRIMONIDINE 0.2% (ALPHAGAN) OPHTH SOLN 5 ML BTL OU SCH ×2 (07:59→19:10)
[2020-07-16] MEDS: DORZOLAMIDE/TIMOLOL (COSOPT) 2-0.68% 10 ML BTL OU SCH ×2 (07:59→19:39)
[2020-07-16] MEDS: amLODIPine 10 MG (NORVASC) TAB PO SCH (08:02)
--- NOTE | 2020-07-16 08:03 | Diagnostic Imaging Report ---
INDICATION: Respiratory distress. COVID pneumonia. Portable chest shows normal heart size and vascularity. There is patchy bilateral airspace disease stable to slightly improved compared to the 07/15/2020 study. There is no effusion or pneumothorax. IMPRESSION: Slightly improving bilateral infiltrates. Dictated by: Dictated on workstation # [id number]
--- NOTE | 2020-07-16 09:47 | Physical Therapy Daily Note ---
PT Daily Note-Current Subjective "They tell me I'm not doing as well, but I feel better." Pt agrees to sit EOB and stand to participate in upright activities. Transfers SCALE: Activities may be completed with or without assistive devices. 4-Psvwhgmnav-jhzqdpw completes the activity by him/herself with no assistance from a helper. 5-Set-up or Clean-up Assistance-helper sets up or cleans up; patient completes activity. [place] assists only prior to or following the activity. 4-Supervision or Touching Assistance-helper provides verbal cues and/or touching/steadying and/or contact guard assistance as patient completes activity. Assistance may be provided throughout the activity or intermittently. 3-Partial/Moderate Assistance-helper does LESS THAN HALF the effort. [place] lifts, holds or supports trunk or limbs, but provides less than half the effort. 2-Substantial/Maximal Assistance-helper does MORE THAN HALF the effort. [place] lifts or holds trunk or limbs and provides more than half the effort. 1-Jnftdyqjy-pquios does ALL the effort. Patient does none of the effort to complete the activity. Or, the assistance of 2 or more helpers is required for the patient to complete the activity. If activity was not attempted, code reason: 7-Patient Refused. 9-Not Applicable-not attempted and the patient did not perform the activity before the current illness, exacerbation or injury. 10-Not Attempted due to Environmental Limitations-(lack of equipment, weather restraints, etc.). 88-Not Attempted due to Medical Conditions or Safety Concerns. Sit to Lying (QC): 4 Lying to Sitting/Side of Bed(Q: 3 Sit to Stand (QC): 4 (CGA for safety with skilled cues for sequencing.) Pt stood EOB 1-2 minutes as this clinician performed pericare and also changed his bed. Pt stood with the FWW with SBA. Sats at 91-92% throughout. Pt sat EOB several minutes and performed oral care, washed his face and worked on deep breathing and posture. Pts sats were in mid 90's throughout time of sitting EOB. Good seated balance; fair standing balance. Treatments Pt requested to brush his teeth and wash his face. Wanted to sit EOB for se veral minutes. Pt in bed post treatment with vapotherm in situ, needs met and patient comfortable. Assessment Current Status: Good Progress Pt tolerated sitting EOB very well. ABle to perform self care while maintaining sats. Pt very cooperative and motivated. PT Timekeeper Goals Correction Goals PT Timekeeper Goals Time Frame: Jul 17, 2020 Roll Left & Right (QC): 6 Sit to Lying (QC): 6 Lying-Sitting on Side/Bed(QC): 6 Sit to Stand (QC): 6 Chair/Qoh-tw-Buoxk Xfer(QC): 6 Toilet Transfer (QC): 6 Walk 150 ft (QC): 6 PT Plan Problem List Problem List: Activity Tolerance, Functional Strength, Safety, Balance, Gait, Transfer Treatment/Plan Treatment Plan: Continue Plan of Care Treatment Plan: Bed Mobility, Education, Functional Activity Jessica, Functional Strength, Gait, Safety, Therapeutic Exercise, Transfers Treatment Duration: Jul 17, 2020 Frequency: 6 times per week Estimated Hrs Per Day: .5 hour per day Patient and/or Family Agrees t: Yes Safety Risks/Education Patient Education: Disease Process, Safety Issues Teaching Recipient: Patient Teaching Methods: Discussion Response to Teaching: Verbalize Understanding Discharge Recommendations Therapy Discharge Recommendati: Post Acute PT Time/GCodes Time In: 850 Time Out: 930 Total Billed Treatment Time: 40 Total Billed Treatment visit FA 40 SAL GARCIA PT Jul 16, 2020 09:46
[2020-07-16] MEDS: ENOXAPARIN 40 MG/0.4 ML (LOVENOX) SYR SQ SCH (09:49)
--- NOTE | 2020-07-16 11:47 | Occupational Ther Daily Note ---
OT Current Status-Daily Note Subjective Pt laying in bed, agreeable to OT tx. Pt indicates he feels better today. Mental Status/Objective Attachments: Oxygen (Vapotherm) ADL-Treatment Therapy Code Descriptions/Definitions Functional [place] Measure: 0=Not Assessed/NA 4=Minimal Assistance 1=Total Assistance 5=Supervision or Setup 2=Maximal Assistance 6=Modified [place] 3=Moderate Assistance 7=Complete IndependenceSCALE: Activities may be completed with or without assistive devices. 8-Jbzcdwcvte-quskizb completes the activity by him/herself with no assistance from a helper. 5-Set-up or Clean-up Assistance-helper sets up or cleans up; patient completes activity. [place] assists only prior to or following the activity. 4-Supervision or Touching Assistance-helper provides verbal cues and/or touching/steadying and/or contact guard assistance as patient completes activity. Assistance may be provided throughout the activity or intermittently. 3-Partial/Moderate Assistance-helper does LESS THAN HALF the effort. [place] lifts, holds or supports trunk or limbs, but provides less than half the effort. 2-Substantial/Maximal Assistance-helper does MORE THAN HALF the effort. [place] lifts or holds trunk or limbs and provides more than half the effort. 8-Hbjzlzqwy-pqidzk does ALL the effort. Patient does none of the effort to compl ete the activity. Or, the assistance of 2 or more helpers is required for the patient to complete the activity. If activity was not attempted, code reason: 7-Patient Refused. 9-Not Applicable-not attempted and the patient did not perform the activity before the current illness, exacerbation or injury. 10-Not Attempted due to Environmental Limitations-(lack of equipment, weather restraints, etc.). 88-Not Attempted due to Medical Conditions or Safety Concerns. Eating (QC): 6 (Pt reports no difficulty using utensils, cutting food, or opening containers.) Other Treatment Pt laying in bed. OT tx with focus on increasing BUE strength and activity tolerance. Pt able to recall 2/3 exercises from previous day, indicating he has been completing them while OT is gone. Pt completed x10 reps BUE AROM shoulder flexion, and x15 reps of the following BUES: elbow flexion/extension, wrist flexion/extension, ulnar/radial deviation, and finger flexion/extension. Pt's O2 sat remained above 93% throughout tx. Post tx, pt laying in bed, call light in reach and all needs met. Education OT Patient Education: Correct positioning, Energy conservation, Modified ADL techniques, Progress toward Goal/Update tx plan, Purpose of tx/functional activities Teaching Recipient: Patient Teaching Methods: Discussion Response to Teaching: Verbalize Understanding OT Time Broker Goals Half-Way Goals Time Frame: Aug 01, 2020 Eating (QC): 6 Oral Hygiene (QC): 6 Toileting Hygiene (QC): 6 Shower/Bathe Self (QC): 6 Upper Body Dressing (QC): 6 Lower Body Dressing (QC): 6 On/Off Footwear (QC): 6 Additional Goals: 1-Demonstrate ADL Tasks, 2-Verbalize Understanding, 3- ImproveStrength/Jessica 1=Demonstrate adherence to instructed precautions during ADL tasks. 2=Patient will verbalize/demonstrate understanding of assistive device s/modifications for ADL. 3=Patient will improve strength/tolerance for activity to enable patient to perform ADL's. OT Education/Plan Problem List/Assessment Assessment: Decreased Activ Tolerance, Decreased UE Strength Discharge Recommendations Plan/Recommendations: Continue POC Treatment Plan/Plan of Care Patient would benefit from OT for education, treatment and training to promote independence in ADL's, mobility, safety and/or upper extremity function for ADL's. Plan of Care: ADL Retraining, Functional Mobility, UE Funct Exercise/Act Treatment Duration: Aug 01, 2020 Frequency: 5 times per week Estimated Hrs Per Day: .25 hour per day Rehab Potential: Good Time/GCodes Start Time: 11:03 Stop Time: 11:20 Total Time Billed (hr/min): 17 Billed Treatment Time 1, EX KEATON FUENTES OT Jul 16, 2020 11:47
--- NOTE | 2020-07-16 12:36 | Cardiology Progress Note ---
Subjective Date Seen by Provider: Jul 16, 2020 Time Seen by Provider: 12:36 Subjective/Events-last exam Patient is laying down in bed, still having some shortness of breath but overall feeling better. Maintained on Vapotherm Review of Systems General: No Chills, No Night Sweats; Fatigue, Malaise; No Appetite, No Other HEENT: No Head Aches, No Visual Changes, No Eye Pain, No Ear Pain, No Dysphasia, No Sinus Congestion, No Post Nasal Drip, No Sore Throat, No Other Pulmonary: Dyspnea; No Cough, No Pleuritic Chest Pain, No Other Cardiovascular: No: Chest Pain, Palpitations, Orthopnea, Paroxysmal Noc. Dyspnea, Edema, Lt Headedness, Other Objective-Cardiology Exam Last Set of Vital Signs Vital Signs 07/16/20 07/16/20 07/16/20 07/16/20 07/16/20 09:00 11:08 11:09 11:11 11:26 Temp 35.8 Pulse 71 Resp 28 B/P (MAP) 108/59 (75) Pulse Ox 97 O2 Delivery Vapotherm O2 Flow Rate 30.00 45.00 FiO2 45 Capillary Refill : Less Than 3 SecondsLess Than 3 Seconds I&O Intake and Output 07/16/20 00:00 Intake Total 1160 ml Output Total 1325 ml Balance -165 ml Intake Oral 740 ml IV Total 420 ml Output Urine Total 1325 ml # Voids 1 # Bowel Movements 1 General: Alert, Oriented X3, Cooperative, No Acute Distress HEENT: Atraumatic Lungs: Clear to Auscultation, Normal Air Movement, Other (decreased BS) Heart: Regular Rate, Normal S1, Normal S2, No Murmurs Neuro: Normal Gait Psych/Mental Status: Mental Status NL Results Lab Laboratory Tests 07/16/20 02:25 A/P-Cardiology Admission Diagnosis Acute respiratory failure COVID-19 pneumonia Coronary artery disease Aortic valve stenosis Assessment/Plan Acute respiratory failure, waxing and waning, currently off the BiPAP and using Vapotherm, feeling better. Managed by Dr. Veras COVID-19 pneumonia, worsening today, transferred to intensive care unit Coronary artery disease, type II myocardial infarction, known to have history of coronary artery disease, cardiac catheterization done on July 05, [address] Arevalo showing patent stent in the proximal LAD, mid circumflex and proximal and midright coronary artery with mild in-stent restenosis. Had 60 percent mid circumflex lesion, 60-70 percent distal right coronary artery stenosis, moderate severe aortic regurgitation Echo showed severe aortic stenosis, valve area 0.7 cm, moderate aortic regurgi tation, EF 50-55 percent done in June 2019, conservative management for now, consideration for valve replacement procedure Borderline hypotension, better at this time JENI SILVA MD Jul 16, 2020 12:36
--- NOTE | 2020-07-16 15:36 | Progress Note ---
Subjective Date Seen by a Provider: Jul 16, 2020 Time Seen by a Provider: 09:00 Subjective/Events-last exam Pt likely able to go to the floor soon Was previously on BiPAP but now on Vapotherm and doing a lot better Still on Zosyn Pt having some loose stools so holding laxatives Was on BiPAP 80% now 50% before Vapotherm Review of Systems General: Fatigue, Malaise Pulmonary: Dyspnea Objective Exam Last Set of Vital Signs Vital Signs Date Time Temp Pulse Resp B/P (MAP) Pulse Ox O2 Delivery O2 Flow Rate FiO2 07/16/20 11:26 35.8 07/16/20 11:11 Vapotherm 30.00 45.00 07/16/20 11:09 45 07/16/20 11:08 97 07/16/20 09:00 71 28 108/59 (75) Capillary Refill : Less Than 3 SecondsLess Than 3 Seconds I&O Intake and Output 07/16/20 00:00 Intake Total 1160 ml Output Total 1325 ml Balance -165 ml Intake Oral 740 ml IV Total 420 ml Output Urine Total 1325 ml # Voids 1 # Bowel Movements 1 General: Alert, Oriented X3, Cooperative, Other HEENT: Atraumatic Lungs: Clear to Auscultation Heart: Regular Rate Neuro: Normal Speech, Strength at 5/5 X4 Ext Psych/Mental Status: Mental Status NL, Mood NL Results Lab Laboratory Tests 07/16/20 02:25: White Blood Count 4.2L, Red Blood Count 3.90L, Hemoglobin 11.9L, Hematocrit 35L, Mean Corpuscular Volume 91, Mean Corpuscular Hemoglobin 31, Mean Corpuscular Hemoglobin Concent 34, Red Cell Distribution Width 12.4, Platelet Count 269, Mean Platelet Volume 11.2, Immature Granulocyte % (Auto) 2, Neutrophils (%) (Auto) 76H, Lymphocytes (%) (Auto) 17, Monocytes (%) (Auto) 5, Eosinophils (%) (Auto) 0, Basophils (%) (Auto) 0, Neutrophils # (Auto) 3.2, Lymphocytes # (Auto) 0.7L, Monocytes # (Auto) 0.2, Eosinophils # (Auto) 0.0, Basophils # (Auto) 0.0, Immature Granulocyte # (Auto) 0.1, D-Dimer 1.32H, Sodium Level 134L, Potassium Level 3.4L, Chloride Level 97L, Carbon Dioxide Level 23, Anion Gap 14, Blood Urea Nitrogen 42H, Creatinine 1.13, Estimat Glomerular Filtration Rate > 60, BUN/Creatinine Ratio 37, Glucose Level 186H, Calcium Level 8.2L, Phosphorus Level 3.4, Magnesium Level 2.3 07/16/20 02:30: Blood Gas Puncture Site LEFT RADIAL, Blood Gas Patient Temperature 36.2, Arterial Blood pH 7.44H, Arterial Blood Partial Pressure CO2 36, Arterial Blood Partial Pressure O2 85, Arterial Blood HCO3 25, Arterial Blood Total CO2 25.7, Arterial Blood Oxygen Saturation 96, Arterial Blood Base Excess 0.7, Qamar Test NEGATIVE, Blood Gas Ventilator Setting NO, Blood Gas Inspired Oxygen 60 Microbiology 07/03/20 MRSA Screen - Final, Complete MRSA not isolated 07/03/20 Blood Culture - Final, Complete No growth Assessment/Plan Assessment/Plan Assess & Plan/Chief Complaint Assessment per Dr Veras with my modifications: Acute respiratory failure secondary to COVID 19 severe ARDS -Changed to NC from Vapotherm - Pt appears better this AM Right sided pleuritic CP/Presumed acute PE -Increase Lovenox to 1mg/kg BID 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, likely chronic -Cardiology following- cath today no intervention required Acute renal failure -Monitor Plan: Cath no intervention Monitor O2 07/06/20: O2 NC during day 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
[2020-07-16] MEDS: ROSUVASTATIN 20 MG (CRESTOR) TABLET PO SCH (19:38)
[2020-07-16] MEDS: guaiFENesin/DM (ROBITUSSIN DM) 10 ML UDC PO PRN (23:39)
[2020-07-17] MEDS: RT-ALBUTEROL INHALER HFA (VENTOLIN HFA) 18 GM IH SCH ×6 (01:55→21:35)
[2020-07-17] MEDS: IPRATROPIUM INHALER (ATROVENT) 12.9 GM INH SCH ×6 (01:56→21:36)
[2020-07-17 03:38] LABS: BASOPHILS % (AUTO) 0 % (0-10); EOSINOPHILS % (AUTO) 0 % (0-10); HEMATOCRIT 34 % (40-54); HEMOGLOBIN 11.7 g/dL (13.3-17.7); LYMPHOCYTES # (AUTO) 0.8 10^3/uL (1.0-4.0); LYMPHOCYTES % (AUTO) 5 % (12-44); MEAN CORPUSCULAR HEMOGLOBIN 31 pg (25-34); MEAN CORPUSCULAR HGB CONC 34 g/dL (32-36); MEAN CORPUSCULAR VOLUME 90 fL (80-99); MEAN PLATELET VOLUME 10.9 fL (9.0-12.2); MONOCYTES # (AUTO) 0.8 10^3/uL (0.0-1.0); MONOCYTES % (AUTO) 6 % (0-12); NEUTROPHILS # (AUTO) 13.3 10^3/uL (1.8-7.8); NEUTROPHILS % (AUTO) 88 % (42-75); PLATELET COUNT 292 10^3/uL (130-400); WHITE BLOOD COUNT 15.1 10^3/uL (4.3-11.0)
[2020-07-17 03:57] LABS: CALCIUM 8.2 MG/DL (8.5-10.1); CREATININE SERUM 1.24 MG/DL (0.60-1.30); MAGNESIUM 2.3 MG/DL (1.6-2.4); PHOSPHORUS 2.1 MG/DL (2.3-4.7); POTASSIUM 3.4 MMOL/L (3.6-5.0)
[2020-07-17 04:00] VITALS: BP 119/61
[2020-07-17 04:19] LABS: LYMPHOCYTES % (MANUAL) 7 %; MONOCYTES % (MANUAL) 3 %; NEUTROPHILS % (MANUAL) 90 %; RBC MORPH NORMAL
--- NOTE | 2020-07-17 05:57 | Pulmonary Progress Note ---
Subjective Time Seen by a Provider: 05:53 Sepsis Event Evaluation Height, Weight, BMI Height: '" Weight: lbs. oz. kg; 29.27 BMI Method: Exam Exam Vital Signs Date Time Temp Pulse Resp B/P (MAP) Pulse Ox O2 Delivery O2 Flow Rate FiO2 07/17/20 01:57 94 High Flow N/C 5.00 07/17/20 01:56 93 High Flow N/C 4.00 07/17/20 01:00 66 07/16/20 23:45 36.0 64 20 126/65 (85) 94 High Flow N/C 7.00 07/16/20 23:18 96 High Flow N/C 4.00 07/16/20 22:05 98 High Flow N/C 5.00 07/16/20 20:00 98 High Flow N/C 5.00 07/16/20 19:37 High Flow N/C 5.00 07/16/20 19:17 96 Vapotherm 30.00 40 07/16/20 19:09 36.3 72 16 118/61 (80) 94 Vapotherm 30.00 40.00 07/16/20 19:00 70 07/16/20 18:50 97 Vapotherm 30.00 40 07/16/20 18:46 Vapotherm 30.00 40 07/16/20 16:00 67 10 111/76 (88) 96 Vapotherm 30.00 40.00 07/16/20 16:00 Vapotherm 30.00 40.00 07/16/20 15:56 Vapotherm 30.00 40 07/16/20 15:54 97 Vapotherm 30.00 40 07/16/20 15:49 36.0 07/16/20 15:00 67 17 108/63 (78) 95 Vapotherm 30.00 45.00 07/16/20 14:00 70 11 113/59 (77) 96 Vapotherm 30.00 45.00 07/16/20 13:00 71 22 107/73 (84) 100 Vapotherm 30.00 45.00 07/16/20 12:30 75 07/16/20 12:00 72 25 109/61 (77) 96 Vapotherm 30.00 45.00 07/16/20 11:26 35.8 07/16/20 11:11 Vapotherm 30.00 45.00 07/16/20 11:09 Vapotherm 30.00 45 07/16/20 11:08 97 Vapotherm 30.00 55 07/16/20 11:00 71 37 111/62 (78) 99 Vapotherm 30.00 55.00 07/16/20 10:00 73 104/55 (71) 98 Vapotherm 30.00 55.00 07/16/20 09:00 71 28 108/59 (75) 92 Vapotherm 30.00 55.00 07/16/20 08:22 Vapotherm 30.00 55.00 07/16/20 08:00 93 NIV Bilevel 50 07/16/20 08:00 68 17 115/59 (77) 94 NIV Bilevel 60.00 07/16/20 07:28 68 19 90 50.00 07/16/20 07:19 36.4 07/16/20 07:00 75 29 141/69 (93) 97 NIV Bilevel 60.00 07/16/20 06:36 64 07/16/20 06:00 65 28 114/65 (90) 89 NIV Bilevel 60.00 I & O 07/17/20 07:00 Intake Total 1380 ml Output Total 1750 ml Balance -370 ml Height & Weight Height: '" Weight: lbs. oz. kg; 29.27 BMI Method: General Appearance: WD/WN, Anxious, Mild Distress HEENT: PERRL/EOMI, TMs Normal Neck: Full Range of Motion, Normal Inspection, Non Tender Respiratory: Chest Non Tender, Normal Breath Sounds, Crackles, Decreased Breath Sounds Cardiovascular: Regular Rate, Rhythm, No Edema, No Gallop, No JVD, No Murmur, Normal Peripheral Pulses Capillary Refill: Less Than 3 Seconds Gastrointestinal: normal bowel sounds, non tender, soft Extremity: Normal Capillary Refill, Normal Inspection Neurologic/Psychiatric: Alert, Oriented x3, No Motor/Sensory Deficits, Normal Mood/Affect Skin: Normal Color, Warm/Dry Lymphatic: No Adenopathy Results Lab Laboratory Tests 07/16/20 02:25 07/17/20 03:30 Assessment/Plan Assessment/Plan Acute respiratory failure secondary to COVID 19 severe ARDS -BiPAP trial to Vapotherm this AM - Zosyn -Echo EF 50-55% -Dx 07/03 - Decadron -- hold -CVP -Prone as tolerated -Pt does not qualify for remdesivir Acute renal failure -- improved -Restart Lasix and monitor 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
[2020-07-17] MEDS: MULTIVIT W/MINERALS TAB (THERAGRAN M) PO SCH (06:12)
[2020-07-17] MEDS: PIPERACILLIN/TAZOBACTAM (BULK) 4.5 GM in NS (IVPB) 100 ML IV SCH ×3 (06:13→20:56)
--- NOTE | 2020-07-17 07:25 | NUR ---
Report given to Laith on 4th floor
--- NOTE | 2020-07-17 07:44 | Diagnostic Imaging Report ---
EXAM: CHEST 1 VIEW, AP/PA ONLY INDICATION: COVID positive. Respiratory failure. COMPARISON: Chest radiograph 07/16/2020. FINDINGS: Normal heart size and central pulmonary vascularity. Patchy airspace opacities in both lungs. No large pleural effusion or pneumothorax. Right PICC tip in SVC. IMPRESSION: Patchy airspace opacities in both lungs are similar to yesterday. Dictated by: Dictated on workstation # [id number]
[2020-07-17 08:00] VITALS: BP 146/67
[2020-07-17] MEDS: ADVAIR HFA 115/21 MCG INHALER 8 GM IH SCH ×2 (08:22→18:29)
[2020-07-17] MEDS: ASPIRIN E.C. 81 MG (ECOTRIN) TAB PO SCH (08:40)
[2020-07-17] MEDS: FUROSEMIDE 20 MG (LASIX) TAB PO SCH (08:40)
[2020-07-17] MEDS: CLOPIDOGREL 75 MG (PLAVIX) TABLET PO SCH (08:40)
[2020-07-17] MEDS: DOCUSATE SODIUM 100 MG (COLACE) CAP PO SCH ×2 (08:40→20:55)
[2020-07-17] MEDS: guaiFENesin (MUCINEX) 600 MG TAB PO SCH ×2 (08:40→20:55)
[2020-07-17] MEDS: CALCIUM ACETATE 667 MG CAP (PHOSLO) PO SCH ×3 (08:40→17:27)
[2020-07-17] MEDS: ZINC SULFATE 220 MG CAPSULE PO SCH (08:40)
[2020-07-17] MEDS: amLODIPine 10 MG (NORVASC) TAB PO SCH (08:40)
[2020-07-17] MEDS: BRIMONIDINE 0.2% (ALPHAGAN) OPHTH SOLN 5 ML BTL OU SCH ×2 (08:41→20:56)
[2020-07-17] MEDS: FAMOTIDINE 20MG/2ML IV (PEPCID) IV SCH (08:41)
[2020-07-17] MEDS: ENOXAPARIN 40 MG/0.4 ML (LOVENOX) SYR SQ SCH (08:41)
[2020-07-17] MEDS: DORZOLAMIDE/TIMOLOL (COSOPT) 2-0.68% 10 ML BTL OU SCH ×2 (08:42→20:55)
[2020-07-17] MEDS: CHLORTHALIDONE 25 MG (HYGROTON) TABLET PO SCH (08:48)
[2020-07-17] MEDS ORDERED: KCL 20 MEQ TAB (K-DUR) PO NR (09:00)
--- NOTE | 2020-07-17 10:21 | Occupational Ther Daily Note ---
OT Current Status-Daily Note Subjective Pt seated in recliner, agreeable to OT tx. Pt denies having pain and states he feels good today. Mental Status/Objective Patient Orientation: Person, Place, Time, Situation Attachments: IV, Oxygen ADL-Treatment Therapy Code Descriptions/Definitions Functional [place] Measure: 0=Not Assessed/NA 4=Minimal Assistance 1=Total Assistance 5=Supervision or Setup 2=Maximal Assistance 6=Modified [place] 3=Moderate Assistance 7=Complete IndependenceSCALE: Activities may be completed with or without assistive devices. 4-Gicwyhoozp-lxmzsir completes the activity by him/herself with no assistance from a helper. 5-Set-up or Clean-up Assistance-helper sets up or cleans up; patient completes activity. [place] assists only prior to or following the activity. 4-Supervision or Touching Assistance-helper provides verbal cues and/or touching/steadying and/or contact guard assistance as patient completes activity. Assistance may be provided throughout the activity or intermittently. 3-Partial/Moderate Assistance-helper does LESS THAN HALF the effort. [place] lifts, holds or supports trunk or limbs, but provides less than half the effort. 2-Substantial/Maximal Assistance-helper does MORE THAN HALF the effort. [place] lifts or holds trunk or limbs and provides more than half the effort. 9-Lgggaiknq-esdlan does ALL the effort. Patient does none of the effort to complete the activity. Or, the assistance of 2 or more helpers is required for the patient to complete the activity. If activity was not attempted, code reason: 7-Patient Refused. 9-Not Applicable-not attempted and the patient did not perform the activity before the current illness, exacerbation or injury. 10-Not Attempted due to Environmental Limitations-(lack of equipment, weather restraints, etc.). 88-Not Attempted due to Medical Conditions or Safety Concerns. Other Treatment Pt seated in recliner, declined ADLs since he has already brushed his teeth this morning. Pt agreeable to UE exercises in order to increase BUE strength and functional endurance. Pt educated on Theraband exercises, completing x5 exercises in all planes using moderate resistance theraband. Pt unable to complete RUE shoulder flexion with theraband, so performed AROM instead, all exercises complete x10 reps with rest breaks between. Pt indicates these exercises are more difficult, but he will continue completing AROM exercises throughout the day, and complete theraband exercises as able. OT left HEP in pt's room along with theraband. Post tx, pt seated in recliner, call light in reach and all needs met. Education OT Patient Education: Correct positioning, Exercise program, Modified ADL techniques, Progress toward Goal/Update tx plan, Purpose of tx/functional activities Teaching Recipient: Patient Teaching Methods: Discussion Response to Teaching: Verbalize Understanding OT Director Of Reservations Goals Director Of Reservations Goals Time Frame: Aug 01, 2020 Eating (QC): 6 Oral Hygiene (QC): 6 Toileting Hygiene (QC): 6 Shower/Bathe Self (QC): 6 Upper Body Dressing (QC): 6 Lower Body Dressing (QC): 6 On/Off Footwear (QC): 6 Additional Goals: 1-Demonstrate ADL Tasks, 2-Verbalize Understanding, 3- ImproveStrength/Jessica 1=Demonstrate adherence to instructed precautions during ADL tasks. 2=Patient will verbalize/demonstrate understanding of assistive devices/modifications for ADL. 3=Patient will improve strength/tolerance for activity to enable patient to perform ADL's. OT Education/Plan Problem List/Assessment Assessment: Decreased Activ Tolerance, Decreased UE Strength, Impaired I ADL's, Impaired Self-Care Skills Discharge Recommendations Plan/Recommendations: Continue POC Treatment Plan/Plan of Care Patient would benefit from OT for education, treatment and training to promote independence in ADL's, mobility, safety and/or upper extremity function for ADL's. Plan of Care: ADL Retraining, Functional Mobility, UE Funct Exercise/Act Treatment Duration: Aug 01, 2020 Frequency: 5 times per week Estimated Hrs Per Day: .25 hour per day Rehab Potential: Good Time/GCodes Start Time: 09:40 Stop Time: 09:59 Total Time Billed (hr/min): 19 Billed Treatment Time 1, EX KEATON FUENTES OT Jul 17, 2020 10:21
--- NOTE | 2020-07-17 10:51 | Physical Therapy Daily Note ---
PT Daily Note-Current Subjective Agrees to PT. Reports he is feeling much better. Hoping to go home before the weekend. Wants to get out of be and sit in the chair. Pain Numeric Pain Scale: 0-No Pain Location: No Pain Reported Mental Status Patient Orientation: Person, Place, Time, Situation Attachments: Oxygen (in situ during and post visit. ), IV Transfers SCALE: Activities may be completed with or without assistive devices. 5-Rebrfnqdvs-samppzq completes the activity by him/herself with no assistance from a helper. 5-Set-up or Clean-up Assistance-helper sets up or cleans up; patient completes activity. [place] assists only prior to or following the activity. 4-Supervision or Touching Assistance-helper provides verbal cues and/or touching/steadying and/or contact guard assistance as patient completes activ ity. Assistance may be provided throughout the activity or intermittently. 3-Partial/Moderate Assistance-helper does LESS THAN HALF the effort. [place] lifts, holds or supports trunk or limbs, but provides less than half the effort. 2-Substantial/Maximal Assistance-helper does MORE THAN HALF the effort. [place] lifts or holds trunk or limbs and provides more than half the effort. 2-Ojcelcqpv-pdnrns does ALL the effort. Patient does none of the effort to complete the activity. Or, the assistance of 2 or more helpers is required for the patient to complete the activity. If activity was not attempted, code reason: 7-Patient Refused. 9-Not Applicable-not attempted and the patient did not perform the activity before the current illness, exacerbation or injury. 10-Not Attempted due to Environmental Limitations-(lack of equipment, weather restraints, etc.). 88-Not Attempted due to Medical Conditions or Safety Concerns. Lying to Sitting/Side of Bed(Q: 6 (takes extra time but does not need any assist. ) Sit to Stand (QC): 4 (SBA for safety but no assist needed. ) Unsteady with initial standing but able to correct and maintain on his own. Gait Training Walk 50 ft with 2 Turns(QC): 4 Gait Assistive Device: FWW Pt able to walk in and out of the bathroom; stood at the sink to brush his teeth and wash his face. Static stance approx 5 minutes. Pt returned to chair post treatment to sit up for a while. Treatments Bed mobility, transfers and gait; up in chair; static standing at sink to promote functional act tolerance. Assessment Current Status: Excellent Progress Progressing well. Does not need assist with bed mobility or transfers; safe with gait, SBA provided due to high oxygen need. Pt motivated andhoping to discharge home soon. PT [employer] Goals Custodial Goals PT [employer] Goals Time Frame: Jul 17, 2020 Roll Left & Right (QC): 6 Sit to Lying (QC): 6 Lying-Sitting on Side/Bed(QC): 6 Sit to Stand (QC): 6 Chair/Xyx-lq-Uefml Xfer(QC): 6 Toilet Transfer (QC): 6 Walk 150 ft (QC): 6 PT Plan Problem List Problem List: Activity Tolerance, Functional Strength, Safety Treatment/Plan Treatment Plan: Continue Plan of Care Treatment Plan: Bed Mobility, Education, Functional Activity Jessica, Functional Strength, Gait, Safety, Therapeutic Exercise, Transfers Treatment Duration: Jul 17, 2020 Frequency: 6 times per week Estimated Hrs Per Day: .5 hour per day Patient and/or Family Agrees t: Yes Safety Risks/Education Patient Education: Gait Training, Safety Issues Teaching Recipient: Patient Teaching Methods: Demonstration, Discussion Response to Teaching: Return Demonstration, Reinforcement Needed Discharge Recommendations Therapy Discharge Recommendati: Post Acute PT Time/GCodes Time In: 900 Time Out: 930 Total Billed Treatment Time: 30 Total Billed Treatment visit FA 30 SAL GARCIA PT Jul 17, 2020 10:51
--- NOTE | 2020-07-17 11:44 | Progress Note ---
Subjective Date Seen by a Provider: Jul 17, 2020 Time Seen by a Provider: 11:45 Subjective/Events-last exam Desperate to go home !0 liters of O2 will work on wean Labs ok No changes otherwise Eating and drinking well Review of Systems Pulmonary: Dyspnea Objective Exam Last Set of Vital Signs Vital Signs Date Time Temp Pulse Resp B/P (MAP) Pulse Ox O2 Delivery O2 Flow Rate FiO2 07/17/20 11:19 92 High Flow N/C 10.00 07/17/20 07:00 63 07/17/20 04:00 36.0 18 119/61 (80) 07/16/20 19:17 40 Capillary Refill : Less Than 3 SecondsLess Than 3 Seconds I&O Intake and Output 07/17/20 00:00 Intake Total 1530 ml Output Total 2050 ml Balance -520 ml Intake Oral 1530 ml Output Urine Total 2050 ml # Bowel Movements 2 General: Alert, Oriented X3, Cooperative, No Acute Distress Lungs: Clear to Auscultation, Normal Air Movement Heart: Regular Rate, Normal S1, Normal S2, No Murmurs Neuro: Normal Gait, Normal Speech, Strength at 5/5 X4 Ext, Normal Tone Results Lab Laboratory Tests 07/17/20 03:30: White Blood Count 15.1H, Red Blood Count 3.80L, Hemoglobin 11.7L, Hematocrit 34L , Mean Corpuscular Volume 90, Mean Corpuscular Hemoglobin 31, Mean Corpuscular Hemoglobin Concent 34, Red Cell Distribution Width 12.2, Platelet Count 292, Mean Platelet Volume 10.9, Immature Granulocyte % (Auto) 2, Neutrophils (%) (Auto) 88H, Lymphocytes (%) (Auto) 5L, Monocytes (%) (Auto) 6, Eosinophils (%) (Auto) 0, Basophils (%) (Auto) 0, Neutrophils # (Auto) 13.3H, Lymphocytes # (Auto) 0.8L, Monocytes # (Auto) 0.8, Eosinophils # (Auto) 0.0, Basophils # (Auto) 0.0, Immature Granulocyte # (Auto) 0.2H, Neutrophils % (Manual) 90, Lymphocytes % (Manual) 7, Monocytes % (Manual) 3, Blood Morphology Comment NORMAL, Sodium Level 137, Potassium Level 3.4L, Chloride Level 102, Carbon Dioxide Level 21, Anion Gap 14, Blood Urea Nitrogen 48H, Creatinine 1.24, Joelle mat Glomerular Filtration Rate 55, BUN/Creatinine Ratio 39, Glucose Level 142H, Calcium Level 8.2L, Phosphorus Level 2.1L, Magnesium Level 2.3, Procalcitonin 0.15H Microbiology 07/03/20 MRSA Screen - Final, Complete MRSA not isolated 07/03/20 Blood Culture - Final, Complete No growth Assessment/Plan Assessment/Plan Assess & Plan/Chief Complaint Assessment per Dr Veras with my modifications: Acute respiratory failure secondary to COVID 19 severe ARDS -Changed to NC from Vapotherm - Pt appears better this AM Right sided pleuritic CP/Presumed acute PE -Increase Lovenox to 1mg/kg BID 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, likely chronic -Cardiology following- cath today no intervention required Acute renal failure -Monitor Plan: Cath no intervention Monitor O2 07/06/20: O2 NC during day 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
[2020-07-17 12:41] VITALS: BP 128/60
--- NOTE | 2020-07-17 12:57 | Cardiology Progress Note ---
Subjective Date Seen by Provider: Jul 17, 2020 Time Seen by Provider: 12:56 Subjective/Events-last exam Patient is in bed, no new complaints. Objective-Cardiology Exam Last Set of Vital Signs Vital Signs 07/16/20 07/17/20 07/17/20 19:17 12:41 15:47 Temp 36.2 Pulse 71 Resp 20 B/P (MAP) 128/60 (82) Pulse Ox 92 O2 Delivery High Flow N/C O2 Flow Rate 10.00 FiO2 40 Capillary Refill : Less Than 3 SecondsLess Than 3 Seconds I&O Intake and Output 07/17/20 00:00 Intake Total 1530 ml Output Total 2050 ml Balance -520 ml Intake Oral 1530 ml Output Urine Total 2050 ml # Bowel Movements 2 General: Alert, Oriented X3, Cooperative, Other HEENT: Atraumatic Lungs: Clear to Auscultation Heart: Regular Rate Neuro: Normal Speech, Strength at 5/5 X4 Ext Psych/Mental Status: Mental Status NL, Mood NL Results Lab Laboratory Tests 07/17/20 03:30 A/P-Cardiology Admission Diagnosis Acute respiratory failure COVID-19 pneumonia Coronary artery disease Aortic valve stenosis Assessment/Plan Acute respiratory failure, waxing and waning, currently off the BiPAP and using Vapotherm, feeling better. Managed by Dr. Veras COVJUAN-19 pneumonia, worsening today, transferred to intensive care unit Coronary artery disease, type II myocardial infarction, known to have history of coronary artery disease, cardiac catheterization done on July 05, [address] Arevalo showing patent stent in the proximal LAD, mid circumflex and proximal and midright coronary artery with mild in-stent restenosis. Had 60 percent mid circumflex lesion, 60-70 percent distal right coronary artery stenosis, moderate severe aortic regurgitation Echo showed severe aortic stenosis, valve area 0.7 cm, moderate aortic regurgitation, EF 50-55 percent done in June 2019, conservative management for now, consideration for valve replacement procedure Borderline hypotension, better at this time Patient was seen and evaluated with Noa, examination performed, management plan was discussed, agree with the current scribed note, I made few changes to the note using Italic font Continue current medication, no changes are recommended NOA DONNELLY Jul 17, 2020 12:57 JENI SILVA MD Jul 17, 2020 16:35
--- NOTE | 2020-07-17 14:29 | NUR ---
"RD ASSESSMENT PMHx: hypotension; PT INTERACTION: Note pt is currently in COVID isolation per chart review. Note all diet information for nutrition follow-up for LOS is per Laith FOWLER or per chart review. Laith states current appetite appears good. Note avg PO intake 66% x3d, per chart review. Laith states no issues with n/v/c/d that she is aware of. Note last BM was 2/3, and pt currently on bowel regimen of colace BID, per chart review. Est. kcal needs: 7415-0949 kcal | 20-25 kcal/kg Est. Pro needs: 66-83 g Pro | 0.8-1.0 g Pro/kg PES STATEMENT: Inadequate oral intake (NI-2.1) related to loss of appetite, as evidenced by chart review, and avg PO intake 66% x3d. INTERVENTION: Continue with current diet order of CHO 60g/m 1snack diet. Pt may benefit from nutrition supplementation if PO intake declines. Will continue to follow and reassess as pt needs, intake, and status change. Vaughn RUIZ, MS RD LD [phone] cell"
[2020-07-17 16:00] VITALS: BP 119/57
--- NOTE | 2020-07-17 16:53 | NUR ---
Patient was placed on room air for 5 minutes. Patent desaturated to 87%. Patient was then placed on 6L. Patient saturation came up to 91%. Patient will need 6L continuously. Addendum: 07/17/20 at 1653 by MIRELLA DOTSON RT Amended: Links added.
[2020-07-17 20:08] VITALS: BP 120/56
[2020-07-17] MEDS: ROSUVASTATIN 20 MG (CRESTOR) TABLET PO SCH (20:55)
[2020-07-18 00:21] VITALS: BP 106/60
[2020-07-18] MEDS: RT-ALBUTEROL INHALER HFA (VENTOLIN HFA) 18 GM IH SCH ×3 (01:58→10:45)
[2020-07-18] MEDS: IPRATROPIUM INHALER (ATROVENT) 12.9 GM INH SCH ×3 (02:00→10:44)
[2020-07-18 04:19] VITALS: BP 112/59
[2020-07-18] MEDS ORDERED: CLOP75TA28 PO (05:49)
[2020-07-18] MEDS ORDERED: MTP25TSR PO (05:49)
[2020-07-18] MEDS ORDERED: IPR14IN INH (05:49)
[2020-07-18] MEDS ORDERED: ALBU18HF2 IH (05:49)
[2020-07-18] MEDS ORDERED: FURO20TA4 PO (05:49)
[2020-07-18] MEDS ORDERED: GUAI473L29 PO ×2 (05:49→10:40)
[2020-07-18] MEDS ORDERED: DEXA6TAB6 PO (05:49)
[2020-07-18] MEDS ORDERED: FLUT12AE4 IH (05:49)
[2020-07-18] MEDS ORDERED: GUAI600T43 PO (05:49)
--- NOTE | 2020-07-18 06:00 | Pulmonary Progress Note ---
Subjective Time Seen by a Provider: 05:57 Subjective/Events-last exam PT is doing better. Pt wants to go home today. Sepsis Event Evaluation Height, Weight, BMI Height: '" Weight: lbs. oz. kg; 29.27 BMI Method: Exam Exam Vital Signs Date Time Temp Pulse Resp B/P (MAP) Pulse Ox O2 Delivery O2 Flow Rate FiO2 07/18/20 04:19 36.3 70 18 112/59 (76) 92 High Flow N/C 07/18/20 03:56 86 High Flow N/C 8.00 07/18/20 02:01 87 High Flow N/C 6.00 07/18/20 02:00 89 High Flow N/C 6.00 07/18/20 00:21 36.1 66 20 106/60 (75) 93 High Flow N/C 6.00 07/17/20 21:38 98 High Flow N/C 6.00 07/17/20 21:36 98 High Flow N/C 6.00 07/17/20 20:10 98 High Flow N/C 6.00 07/17/20 20:08 36.1 70 20 120/56 (77) 92 High Flow N/C 6.00 07/17/20 18:35 91 High Flow N/C 6.00 07/17/20 18:30 91 High Flow N/C 6.00 07/17/20 18:29 91 High Flow N/C 6.00 07/17/20 16:00 36.1 75 16 119/57 (77) 94 07/17/20 15:49 93 8.00 07/17/20 15:47 92 High Flow N/C 10.00 07/17/20 12:41 36.2 71 20 128/60 (82) 94 High Flow N/C 10.00 07/17/20 11:19 92 High Flow N/C 10.00 07/17/20 08:22 93 High Flow N/C 10.00 07/17/20 08:00 36.3 85 20 146/67 (93) 96 0.00 07/17/20 08:00 96 High Flow N/C 10.00 07/17/20 07:00 63 I & O 07/18/20 07:00 Intake Total 1120 ml Output Total 950 ml Balance 170 ml Height & Weight Height: '" Weight: lbs. oz. kg; 29.27 BMI Method: General Appearance: No Apparent Distress, WD/WN, Anxious HEENT: PERRL/EOMI, TMs Normal Neck: Full Range of Motion, Normal Inspection, Non Tender Respiratory: Chest Non Tender, Normal Breath Sounds, Crackles, Decreased Breath Sounds Cardiovascular: Regular Rate, Rhythm, No Edema, No Gallop, No JVD, No Murmur, Normal Peripheral Pulses Capillary Refill: Less Than 3 Seconds Gastrointestinal: normal bowel sounds, non tender, soft Extremity: Normal Capillary Refill, Normal Inspection Neurologic/Psychiatric: Alert, Oriented x3, No Motor/Sensory Deficits, Normal Mood/Affect Skin: Normal Color, Warm/Dry Lymphatic: No Adenopathy Results Lab Laboratory Tests 07/17/20 03:30 Assessment/Plan Assessment/Plan Acute respiratory failure secondary to COVID 19 severe ARDS -Currently on NC at 6 liters - Zosyn -- change to Augmentin at discharge -Pt is really wanting to go home and will probably leave AMA if not discharged. He is highly likely to be readmitted and pt understands this. 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
[2020-07-18] MEDS: PIPERACILLIN/TAZOBACTAM (BULK) 4.5 GM in NS (IVPB) 100 ML IV SCH (06:02)
[2020-07-18 06:10] LABS: BASOPHILS % (AUTO) 0 % (0-10); EOSINOPHILS % (AUTO) 0 % (0-10); HEMATOCRIT 34 % (40-54); HEMOGLOBIN 11.5 g/dL (13.3-17.7); LYMPHOCYTES # (AUTO) 0.8 10^3/uL (1.0-4.0); LYMPHOCYTES % (AUTO) 5 % (12-44); MEAN CORPUSCULAR HEMOGLOBIN 31 pg (25-34); MEAN CORPUSCULAR HGB CONC 34 g/dL (32-36); MEAN CORPUSCULAR VOLUME 90 fL (80-99); MONOCYTES # (AUTO) 0.9 10^3/uL (0.0-1.0); MONOCYTES % (AUTO) 6 % (0-12); NEUTROPHILS # (AUTO) 12.4 10^3/uL (1.8-7.8); NEUTROPHILS % (AUTO) 87 % (42-75); PLATELET COUNT 298 10^3/uL (130-400); WHITE BLOOD COUNT 14.2 10^3/uL (4.3-11.0)
[2020-07-18 06:26] LABS: CHLORIDE 101 MMOL/L (98-107); POTASSIUM 4.1 MMOL/L (3.6-5.0); SODIUM 135 MMOL/L (135-145)
[2020-07-18 06:28] LABS: CALCIUM 8.2 MG/DL (8.5-10.1); GLUCOSE 106 MG/DL (70-105)
[2020-07-18] MEDS ORDERED: AMOX-358 PO (06:28)
[2020-07-18 06:30] LABS: CARBON DIOXIDE 23 MMOL/L (21-32)
[2020-07-18 06:32] LABS: CREATININE SERUM 1.04 MG/DL (0.60-1.30); GFR ESTIMATED > 60; PHOSPHORUS 2.1 MG/DL (2.3-4.7)
[2020-07-18 06:33] LABS: BUN/CREATININE RATIO 38
[2020-07-18 06:35] LABS: MAGNESIUM 2.2 MG/DL (1.6-2.4)
--- NOTE | 2020-07-18 07:32 | Diagnostic Imaging Report ---
INDICATION: Respiratory distress, Covid positive. TECHNIQUE: Single view chest 1:41 AM. CORRELATION STUDY: 07/17/2020 FINDINGS: Right upper extremity central line tip over the low SVC. Heart size and mediastinum stable. Patchy airspace opacities at the mid and lower lung myles are again demonstrated. Upper lung myles are hyperlucent suggesting COPD. IMPRESSION: 1. Bilateral patchy airspace opacities particularly in the mid and lower lung myles compatible with multilobe pneumonia, generally stable. Dictated by: Dictated on workstation # [id number]
[2020-07-18 08:07] VITALS: BP 128/60
[2020-07-18] MEDS: ADVAIR HFA 115/21 MCG INHALER 8 GM IH SCH (08:30)
--- NOTE | 2020-07-18 09:18 | NUR ---
CM/SS: [facility]. [place] him[facility]/[place] at [phone]. Phone call [phone] to let them know that the information will be faxed to them.
[2020-07-18] MEDS: ENOXAPARIN 40 MG/0.4 ML (LOVENOX) SYR SQ SCH (10:04)
[2020-07-18] MEDS: DORZOLAMIDE/TIMOLOL (COSOPT) 2-0.68% 10 ML BTL OU SCH (10:05)
[2020-07-18] MEDS: guaiFENesin (MUCINEX) 600 MG TAB PO SCH (10:05)
[2020-07-18] MEDS: ZINC SULFATE 220 MG CAPSULE PO SCH (10:05)
[2020-07-18] MEDS: ASPIRIN E.C. 81 MG (ECOTRIN) TAB PO SCH (10:05)
[2020-07-18] MEDS: CHLORTHALIDONE 25 MG (HYGROTON) TABLET PO SCH (10:05)
[2020-07-18] MEDS: CALCIUM ACETATE 667 MG CAP (PHOSLO) PO SCH ×2 (10:05→12:49)
[2020-07-18] MEDS: CLOPIDOGREL 75 MG (PLAVIX) TABLET PO SCH (10:06)
[2020-07-18] MEDS: amLODIPine 10 MG (NORVASC) TAB PO SCH (10:06)
[2020-07-18] MEDS: FAMOTIDINE 20MG/2ML IV (PEPCID) IV SCH (10:06)
[2020-07-18] MEDS: DOCUSATE SODIUM 100 MG (COLACE) CAP PO SCH (10:06)
[2020-07-18] MEDS: MULTIVIT W/MINERALS TAB (THERAGRAN M) PO SCH (10:06)
[2020-07-18] MEDS: BRIMONIDINE 0.2% (ALPHAGAN) OPHTH SOLN 5 ML BTL OU SCH (10:07)
[2020-07-18] MEDS: FUROSEMIDE 20 MG (LASIX) TAB PO SCH (10:09)
--- NOTE | 2020-07-18 10:23 | Occupational Ther Daily Note ---
OT Current Status-Daily Note Subjective Pt laying in bed, agreeable to OT tx. Pt denies pain. Mental Status/Objective Patient Orientation: Person, Place, Time, Situation Attachments: Oxygen ADL-Treatment Therapy Code Descriptions/Definitions Functional Union Measure: 0=Not Assessed/NA 4=Minimal Assistance 1=Total Assistance 5=Supervision or Setup 2=Maximal Assistance 6=Modified Union 3=Moderate Assistance 7=Complete IndependenceSCALE: Activities may be completed with or without assistive devices. 2-Tthuakjffw-evlnzvi completes the activity by him/herself with no assistance from a helper. 5-Set-up or Clean-up Assistance-helper sets up or cleans up; patient completes activity. [place] assists only prior to or following the activity. 4-Supervision or Touching Assistance-helper provides verbal cues and/or touching/steadying and/or contact guard assistance as patient completes activity. Assistance may be provided throughout the activity or intermittently. 3-Partial/Moderate Assistance-helper does LESS THAN HALF the effort. [place] lifts, holds or supports trunk or limbs, but provides less than half the effort. 2-Substantial/Maximal Assistance-helper does MORE THAN HALF the effort. [place] lifts or holds trunk or limbs and provides more than half the effort. 7-Ppzfbjesi-lqhqzq does ALL the effort. Patient does none of the effort to complete the activity. Or, the assistance of 2 or more helpers is required for the patient to complete the activity. If activity was not attempted, code reason: 7-Patient Refused. 9-Not Applicable-not attempted and the patient did not perform the activity before the current illness, exacerbation or injury. 10-Not Attempted due to Environmental Limitations-(lack of equipment, weather restraints, etc.). 88-Not Attempted due to Medical Conditions or Safety Concerns. Eating (QC): 6 (IND with breakfast and pills.) Other Treatment Pt agreeable to UE exercises in order to increase BUE strength and functional endurance. Pt completing x5 exercises in all planes, x10 reps each, using moderate resistance theraband. Pt unable to complete RUE shoulder flexion with theraband, so performed AROM instead, all exercises complete x10 reps with rest breaks between. Pt able to follow exercises on HEP, with minimal skilled cues/demonstrations. Pt feels the exercises are a little tougher today compared with yesterday, OT educated pt to complete to his tolerance, he verbalized understanding. Post tx, pt laying in bed, call light in reach and all needs met. Education OT Patient Education: Correct positioning, Exercise program, Modified ADL techniques, Progress toward Goal/Update tx plan, Purpose of tx/functional activities Teaching Recipient: Patient Teaching Methods: Discussion Response to Teaching: Verbalize Understanding OT Prison Goals Squad Leader Goals Time Frame: Aug 01, 2020 Eating (QC): 6 Oral Hygiene (QC): 6 Toileting Hygiene (QC): 6 Shower/Bathe Self (QC): 6 Upper Body Dressing (QC): 6 Lower Body Dressing (QC): 6 On/Off Footwear (QC): 6 Additional Goals: 1-Demonstrate ADL Tasks, 2-Verbalize Understanding, 3- ImproveStrength/Jessica 1=Demonstrate adherence to instructed precautions during ADL tasks. 2=Patient will verbalize/demonstrate understanding of assistive devices/modifications for ADL. 3=Patient will improve strength/tolerance for activity to enable patient to perform ADL's. OT Education/Plan Problem List/Assessment Assessment: Decreased Activ Tolerance, Decreased UE Strength, Impaired I ADL's, Impaired Self-Care Skills Discharge Recommendations Plan/Recommendations: Continue POC Treatment Plan/Plan of Care Patient would benefit from OT for education, treatment and training to promote independence in ADL's, mobility, safety and/or upper extremity function for ADL's. Plan of Care: ADL Retraining, Functional Mobility, UE Funct Exercise/Act Treatment Duration: Aug 01, 2020 Frequency: 5 times per week Estimated Hrs Per Day: .25 hour per day Rehab Potential: Good Time/GCodes Start Time: 10:10 Stop Time: 10:25 Total Time Billed (hr/min): 15 Billed Treatment Time 1, EX KEATON FUENTES OT Jul 18, 2020 10:23
--- NOTE | 2020-07-18 10:44 | Discharge Summary ---
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, likely chronic -Cardiology following- cath today no intervention required Acute renal failure -Monitor Plan: Cath no intervention Monitor O2 07/06/20: O2 NC during day Vapotherm at [facility] night HR and BP DC Catheter Move to 4th floor 07/09/20: DC catheter tomorrow Monitor O2 Vapotherm PT OT 07/10/20: Home O2 evaluation DC tomorrow 07/11/20: Hold DC Labs and CXR ordered Dr Veras to review 07/12/20: Continue current treatment 07/13/20: Wean O2 Antitussives 07/14/20: Move to [facility] High risk for intubation : May need intubation if worsens 07/17/20: Wean O2 DC soon Discharge Summary Discharge Physical Examination Allergies: Coded Allergies: No Known Drug Allergies (Unverified , 07/03/20) Vitals & I&Os Vital Signs Date Time Temp Pulse Resp B/P (MAP) Pulse Ox O2 Delivery O2 Flow Rate FiO2 07/18/20 16:20 34.5 72 18 128/60 92 High Flow N/C 6.00 07/16/20 19:17 40 General Appearance: Alert, Oriented X3, Cooperative Respiratory: Clear to Auscultation Cardiovascular: Regular Rate Neuro: Normal Gait, Normal Speech, Strength at 5/5 X4 Ext Hospital Course Was the Problem List Reviewed?: Yes Lengthy course for 16 days after admitted for COVID-19 and NSTEMI. Patient remained stable and taken to cath without intervention required. Patient required multiple moves within ICU and CSD and 4th floor due to declined stable and lung complications. Patient was maintained on abx and COVID 19 treatment. Overall he was able to wean down off O2 from Vapotherm to 6L/min and patient felt well and was able to participate in all therapies and insisted on DC so he was stable at DC and maintained on 6L/min continuous. Labs (last 24 hrs) Laboratory Tests 07/03/20 09:00: Lab Scanned Report Referred Lab Report 07/03/20 09:35: Blood Gas Puncture Site LT RAD, Blood Gas Patient Temperature 36.4, Arterial Blood pH 7.15*L, Arterial Blood Partial Pressure CO2 63H, Arterial Blood Partial Pressure O2 72L, Arterial Blood HCO3 21L, Arterial Blood Total CO2 23.4, Arterial Blood Oxygen Saturation 86L, Arterial Blood Base Excess -6.3L, Qamar Test YES-POS, Blood Gas Ventilator Setting NO, Blood Gas Inspired Oxygen 40L VAPOTHERM 07/03/20 10:35: White Blood Count 6.6, Red Blood Count 4.49, Hemoglobin 14.1, Hematocrit 43, Mean Corpuscular Volume 95, Mean Corpuscular Hemoglobin 31, Mean Corpuscular Hemoglobin Concent 33, Red Cell Distribution Width 12.9, Platelet Count 229, Mean Platelet Volume 11.2, Immature Granulocyte % (Auto) 1, Neutrophils (%) (Auto) 61, Lymphocytes (%) (Auto) 29, Monocytes (%) (Auto) 9, Eosinophils (%) (Auto) 0, Basophils (%) (Auto) 0, Neutrophils # (Auto) 4.0, Lymphocytes # (Auto) 1.9, Monocytes # (Auto) 0.6, Eosinophils # (Auto) 0.0, Basophils # (Auto) 0.0, Immature Granulocyte # (Auto) 0.0, D-Dimer 2.34H, Sodium Level 137, Potassium Level 3.7, Chloride Level 105, Carbon Dioxide Level 21, Anion Gap 11, Blood Urea Nitrogen 28H, Creatinine 1.39H, Estimat Glomerular Filtration Rate 49, BUN/Creatinine Ratio 20, Glucose Level 199H, Lactic Acid Level 1.63, Calcium Level 7.7L, Corrected Calcium 8.0L, Phosphorus Level 5.8H, Magnesium Level 1.8, Total Bilirubin 0.5, Aspartate Amino Transf (AST/SGOT) 75H, Alanine Aminotransferase (ALT/SGPT) 23, Alkaline Phosphatase 80, Troponin I 12.392*H, B- Type Natriuretic Peptide 771.1H, Total Protein 6.5, Albumin 3.6, Procalcitonin 0.11H 07/03/20 11:40: Coronavirus 2019 ([facility]) PositiveH, Urine Legionella pneumophilia Ag Negative, Streptococcus pneumoniae Antigen Negative 07/03/20 13:07: Blood Gas Puncture Site LT RAD, Blood Gas Patient Temperature 37, Arterial Blood pH 7.36L, Arterial Blood Partial Pressure CO2 36, Arterial Blood Partial Pressure O2 46L, Arterial Blood HCO3 20L, Arterial Blood Total CO2 20.9L, Arterial Blood Oxygen Saturation 97, Arterial Blood Base Excess -4.6L, Qamar Test POS, Blood Gas Ventilator Setting NO, Blood Gas Inspired Oxygen 70% 07/04/20 02:05: Blood Gas Puncture Site LEFT RADIAL, Blood Gas Patient Temperature 36.4, Arterial Blood pH 7.35L, Arterial Blood Partial Pressure CO2 44, Arterial Blood Partial Pressure O2 46L, Arterial Blood HCO3 23, Arterial Blood Total CO2 24.8, Arterial Blood Oxygen Saturation 74L, Arterial Blood Base Excess -1.7, Qamar Test YES-POS, Blood Gas Ventilator Setting NO, Blood Gas Inspired Oxygen 70%, White Blood Count 6.8, Red Blood Count 3.80L, Hemoglobin 12.0L, Hematocrit 36L, Mean Corpuscular Volume 96, Mean Corpuscular Hemoglobin 32, Mean Corpuscular Hemoglobin Concent 33, Red Cell Distribution Width 13.2, Platelet Count 171, Mean Platelet Volume 11.3, Immature Granulocyte % (Auto) 0, Neutrophils (%) (Auto) 59, Lymphocytes (%) (Auto) 23, Monocytes (%) (Auto) 17H, Eosinophils (%) (Auto) 0, Basophils (%) (Auto) 0, Neutrophils # (Auto) 4.0, Lymphocytes # (Auto) 1.6, Monocytes # (Auto) 1.2H, Eosinophils # (Auto) 0.0, Basophils # (Auto) 0.0, Immature Granulocyte # (Auto) 0.0, Sodium Level 137, Potassium Level 3.8, Chloride Level 104, Carbon Dioxide Level 21, Anion Gap 12, Blood Urea Nitrogen 31H, Creatinine 1.12, Estimat Glomerular Filtration Rate > 60, BUN/Creatinine Ratio 28, Glucose Level 98, Calcium Level 7.7L, Phosphorus Level 4.0, Magnesium Level 1.9 07/05/20 03:45: White Blood Count 5.5, Red Blood Count 3.94L, Hemoglobin 12.3L, Hematocrit 37L, Mean Corpuscular Volume 93, Mean Corpuscular Hemoglobin 31, Mean Corpuscular Hemoglobin Concent 34, Red Cell Distribution Width 12.7, Platelet Count 159, Mean Platelet Volume 11.0, Immature Granulocyte % (Auto) 0, Neutrophils (%) (Auto) 65, Lymphocytes (%) (Auto) 18, Monocytes (%) (Auto) 16H, Eosinophils (%) (Auto) 0, Basophils (%) (Auto) 0, Neutrophils # (Auto) 3.6, Lymphocytes # (Auto) 1.0, Monocytes # (Auto) 0.9, Eosinophils # (Auto) 0.0, Basophils # (Auto) 0.0, Immature Granulocyte # (Auto) 0.0, Sodium Level 136, Potassium Level 3.8, Chloride Level 103, Carbon Dioxide Level 21, Anion Gap 12, Blood Urea Nitrogen 28H, Creatinine 0.89, Estimat Glomerular Filtration Rate > 60, BUN/Creatinine Ratio 31, Glucose Level 142H, Calcium Level 8.4L, Phosphorus Level 2.3, Magnesium Level 1.9 07/06/20 03:16: White Blood Count 12.5H, Red Blood Count 3.81L, Hemoglobin 12.0L, Hematocrit 36L , Mean Corpuscular Volume 93, Mean Corpuscular Hemoglobin 32, Mean Corpuscular Hemoglobin Concent 34, Red Cell Distribution Width 12.9, Platelet Count 168, Mean Platelet Volume 11.4, Immature Granulocyte % (Auto) 0, Neutrophils (%) (Auto) 81H, Lymphocytes (%) (Auto) 9L, Monocytes (%) (Auto) 9, Eosinophils (%) (Auto) 0, Basophils (%) (Auto) 0, Neutrophils # (Auto) 10.1H, Lymphocytes # (Auto) 1.1, Monocytes # (Auto) 1.1H, Eosinophils # (Auto) 0.0, Basophils # (Auto) 0.0, Immature Granulocyte # (Auto) 0.0, Sodium Level 136, Potassium Level 4.0, Chloride Level 103, Carbon Dioxide Level 24, Anion Gap 9, Blood Urea Nitrogen 32H, Creatinine 0.90, Estimat Glomerular Filtration Rate > 60, BUN/Creatinine Ratio 36, Glucose Level 125H, Calcium Level 8.2L, Phosphorus Level 2.9, Magnesium Level 1.9 07/07/20 06:14: White Blood Count 13.7H, Red Blood Count 4.41, Hemoglobin 13.7, Hematocrit 42, Mean Corpuscular Volume 94, Mean Corpuscular Hemoglobin 31, Mean Corpuscular Hemoglobin Concent 33, Red Cell Distribution Width 13.0, Platelet Count 180, Mean Platelet Volume 11.8, Immature Granulocyte % (Auto) 1, Neutrophils (%) (Auto) 84H, Lymphocytes (%) (Auto) 8L, Monocytes (%) (Auto) 7, Eosinophils (%) (Auto) 0, Basophils (%) (Auto) 0, Neutrophils # (Auto) 11.5H, Lymphocytes # (Auto) 1.1, Monocytes # (Auto) 1.0, Eosinophils # (Auto) 0.0, Basophils # (Auto) 0.0, Immature Granulocyte # (Auto) 0.1, D-Dimer 0.68H, Sodium Level 139, Potassium Level 4.2, Chloride Level 102, Carbon Dioxide Level 26, Anion Gap 11, Blood Urea Nitrogen 34H, Creatinine 0.99, Estimat Glomerular Filtration Rate > 60, BUN/Creatinine Ratio 34, Glucose Level 111H, Calcium Level 8.9, Corrected Calcium 9.1, Total Bilirubin 0.8, Aspartate Amino Transf (AST/SGOT) 52H, Alanine Aminotransferase (ALT/SGPT) 31, Alkaline Phosphatase 71, B-Type Natriuretic Peptide 1434.6H, Total Protein 6.8, Albumin 3.7, Procalcitonin 0.23H 07/07/20 07:00: Blood Gas Puncture Site LR, Blood Gas Patient Temperature 37.4, Arterial Blood pH 7.41, Arterial Blood Partial Pressure CO2 40, Arterial Blood Partial Pressure O2 78L, Arterial Blood HCO3 25, Arterial Blood Total CO2 26.3, Arterial Blood Oxygen Saturation 95, Arterial Blood Base Excess 1.1, Qamar Test YES-POS, Blood Gas Ventilator Setting NO, Blood Gas Inspired Oxygen 100% 07/07/20 11:32: Glucometer 151H 07/07/20 17:34: Glucometer 159H 07/08/20 03:12: White Blood Count 11.0, Red Blood Count 4.20L, Hemoglobin 13.0L, Hematocrit 40, Mean Corpuscular Volume 95, Mean Corpuscular Hemoglobin 31, Mean Corpuscular Hemoglobin Concent 33, Red Cell Distribution Width 13.0, Platelet Count 175, Mean Platelet Volume 12.2, Immature Granulocyte % (Auto) 1, Neutrophils (%) (Auto) 89H, Lymphocytes (%) (Auto) 5L, Monocytes (%) (Auto) 6, Eosinophils (%) (Auto) 0, Basophils (%) (Auto) 0, Neutrophils # (Auto) 9.7H, Lymphocytes # (Auto) 0.5L, Monocytes # (Auto) 0.6, Eosinophils # (Auto) 0.0, Basophils # (Auto) 0.0, Immature Granulocyte # (Auto) 0.1, Neutrophils % (Manual) 80, Lymphocytes % (Manual) 10, Monocytes % (Manual) 5, Band Neutrophils 5, Blood Morphology Comment NORMAL, Sodium Level 139, Potassium Level 3.9, Chloride Level 97L, Carbon Dioxide Level 29, Anion Gap 13, Blood Urea Nitrogen 39H, Creatinine 1.14, Estimat Glomerular Filtration Rate > 60, BUN/Creatinine Ratio 34, Glucose Level 105, Calcium Level 9.3, Phosphorus Level 4.1, Magnesium Level 2.3 07/09/20 02:43: White Blood Count 10.2, Red Blood Count 3.99L, Hemoglobin 12.3L, Hematocrit 37L, Mean Corpuscular Volume 93, Mean Corpuscular Hemoglobin 31, Mean Corpuscular Hemoglobin Concent 33, Red Cell Distribution Width 12.6, Platelet Count 186, Mean Platelet Volume 12.0, Immature Granulocyte % (Auto) 1, Neutrophils (%) (Auto) 85H, Lymphocytes (%) (Auto) 7L, Monocytes (%) (Auto) 7, Eosinophils (%) (Auto) 0, Basophils (%) (Auto) 0, Neutrophils # (Auto) 8.6H, Lymphocytes # (Auto) 0.7L, Monocytes # (Auto) 0.7, Eosinophils # (Auto) 0.0, Basophils # (Auto) 0.0, Immature Granulocyte # (Auto) 0.1, Sodium Level 138, Potassium Level 3.8, Chloride Level 96L, Carbon Dioxide Level 30, Anion Gap 12, Blood Urea Nitrogen 50H, Creatinine 1.32H, Estimat Glomerular Filtration Rate 52, BU N/Creatinine Ratio 38, Glucose Level 129H, Calcium Level 8.9, Phosphorus Level 4.6, Magnesium Level 2.3 07/10/20 05:52: White Blood Count 11.9H, Red Blood Count 3.79L, Hemoglobin 11.8L, Hematocrit 35L , Mean Corpuscular Volume 93, Mean Corpuscular Hemoglobin 31, Mean Corpuscular Hemoglobin Concent 34, Red Cell Distribution Width 12.7, Platelet Count 237, Mean Platelet Volume 11.4, Immature Granulocyte % (Auto) 2, Neutrophils (%) (Auto) 79H, Lymphocytes (%) (Auto) 7L, Monocytes (%) (Auto) 13H, Eosinophils (%) (Auto) 0, Basophils (%) (Auto) 0, Neutrophils # (Auto) 9.5H, Lymphocytes # (Auto) 0.8L, Monocytes # (Auto) 1.5H, Eosinophils # (Auto) 0.0, Basophils # ( Auto) 0.0, Immature Granulocyte # (Auto) 0.2H, Sodium Level 137, Potassium Level 3.7, Chloride Level 98, Carbon Dioxide Level 27, Anion Gap 12, Blood Urea Nitrogen 49H, Creatinine 1.23, Estimat Glomerular Filtration Rate 56, BUN/Creatinine Ratio 40, Glucose Level 100, Calcium Level 8.9, Corrected Calcium 9.5, Total Bilirubin 0.7, Aspartate Amino Transf (AST/SGOT) 34, Alanine Aminotransferase (ALT/SGPT) 35, Alkaline Phosphatase 59, Total Protein 6.3L, Albumin 3.3 07/11/20 06:18: White Blood Count 10.6, Red Blood Count 4.14L, Hemoglobin 12.8L, Hematocrit 39L, Mean Corpuscular Volume 94, Mean Corpuscular Hemoglobin 31, Mean Corpuscular Hemoglobin Concent 33, Red Cell Distribution Width 12.5, Platelet Count 256, Mean Platelet Volume 11.5, Immature Granulocyte % (Auto) 2, Neutrophils (%) (Auto) 78H, Lymphocytes (%) (Auto) 8L, Monocytes (%) (Auto) 12, Eosinophils (%) (Auto) 0, Basophils (%) (Auto) 0, Neutrophils # (Auto) 8.3H, Lymphocytes # (Auto) 0.8L, Monocytes # (Auto) 1.3H, Eosinophils # (Auto) 0.0, Basophils # (Au to) 0.0, Immature Granulocyte # (Auto) 0.2H, Sodium Level 135, Potassium Level 3.7, Chloride Level 97L, Carbon Dioxide Level 25, Anion Gap 13, Blood Urea Nitrogen 43H, Creatinine 1.17, Estimat Glomerular Filtration Rate 59, BUN/Creatinine Ratio 37, Glucose Level 96, Calcium Level 9.3, Corrected Calcium 9.6, Total Bilirubin 1.0, Aspartate Amino Transf (AST/SGOT) 36H, Alanine Aminotransferase (ALT/SGPT) 37, Alkaline Phosphatase 66, Total Protein 7.1, Albumin 3.6, Procalcitonin 0.16H 07/12/20 07:00: White Blood Count 7.5, Red Blood Count 4.08L, Hemoglobin 12.5L, Hematocrit 38L, Mean Corpuscular Volume 92, Mean Corpuscular Hemoglobin 31, Mean Corpuscular Hemoglobin Concent 33, Red Cell Distribution Width 12.5, Platelet Count 240, Mean Platelet Volume 11.2, Immature Granulocyte % (Auto) 5, Neutrophils (%) (Auto) 75, Lymphocytes (%) (Auto) 8L, Monocytes (%) (Auto) 12, Eosinophils (%) (Auto) 0, Basophils (%) (Auto) 0, Neutrophils # (Auto) 5.6, Lymphocytes # (Auto) 0.6L, Monocytes # (Auto) 0.9, Eosinophils # (Auto) 0.0, Basophils # (Auto) 0.0, Immature Granulocyte # (Auto) 0.4H, Sodium Level 134L, Potassium Level 3.6, Chloride Level 97L, Carbon Dioxide Level 24, Anion Gap 13, Blood Urea Nitrogen 40H, Creatinine 1.17, Estimat Glomerular Filtration Rate 59, BUN/Creatinine Ratio 34, Glucose Level 106H, Calcium Level 8.8, Corrected Calcium 9.4, Total Bilirubin 1.1H, Aspartate Amino Transf (AST/SGOT) 46H, Alanine Aminotransferase (ALT/SGPT) 38, Alkaline Phosphatase 61, Total Protein 6.4, Albumin 3.2 07/14/20 05:32: White Blood Count 8.8, Red Blood Count 3.98L, Hemoglobin 12.3L, Hematocrit 36L, Mean Corpuscular Volume 91, Mean Corpuscular Hemoglobin 31, Mean Corpuscular Hemoglobin Concent 34, Red Cell Distribution Width 12.2, Platelet Count 263, Mean Platelet Volume 10.8, Immature Granulocyte % (Auto) 2, Neutrophils (%) (Auto) 81H, Lymphocytes (%) (Auto) 12, Monocytes (%) (Auto) 5, Eosinophils (%) (Auto) 0, Basophils (%) (Auto) 0, Neutrophils # (Auto) 7.1, Lymphocytes # (Auto) 1.0, Monocytes # (Auto) 0.4, Eosinophils # (Auto) 0.0, Basophils # (Auto) 0.0, Immature Granulocyte # (Auto) 0.2H, Sodium Level 132L, Potassium Level 3.1L, Chloride Level 96L, Carbon Dioxide Level 23, Anion Gap 13, Blood Urea Nitrogen 38H, Creatinine 0.97, Estimat Glomerular Filtration Rate > 60, BUN/Creatinine Ratio 39, Glucose Level 106H, Calcium Level 8.4L, Corrected Calcium 9.2, Total Bilirubin 0.7, Aspartate Amino Transf (AST/SGOT) 77H, Alanine Aminotransferase (ALT/SGPT) 52, Alkaline Phosphatase 66, Total Protein 6.3L, Albumin 3.0L, D- Dimer 1.58H, Phosphorus Level 2.7, Magnesium Level 2.0, Procalcitonin 0.29H 07/14/20 07:02: Blood Gas Puncture Site RT BRACH, Blood Gas Patient Temperature 37.0, Arterial Blood pH 7.49H, Arterial Blood Partial Pressure CO2 34L, Arterial Blood Partial Pressure O2 64L, Arterial Blood HCO3 26, Arterial Blood Total CO2 26.8, Arterial Blood Oxygen Saturation 92L, Arterial Blood Base Excess 2.6H, Qamar Test YES- POS, Blood Gas Ventilator Setting NO, Blood Gas Inspired Oxygen 75% 07/15/20 03:00: White Blood Count 7.8, Red Blood Count 3.67L, Hemoglobin 11.4L, Hematocrit 34L, Mean Corpuscular Volume 92, Mean Corpuscular Hemoglobin 31, Mean Corpuscular H emoglobin Concent 34, Red Cell Distribution Width 12.3, Platelet Count 245, Mean Platelet Volume 11.0, Immature Granulocyte % (Auto) 2, Neutrophils (%) (Auto) 82H, Lymphocytes (%) (Auto) 10L, Monocytes (%) (Auto) 5, Eosinophils (%) (Auto) 0, Basophils (%) (Auto) 0, Neutrophils # (Auto) 6.4, Lymphocytes # (Auto) 0.8L, Monocytes # (Auto) 0.4, Eosinophils # (Auto) 0.0, Basophils # (Auto) 0.0, Immature Granulocyte # (Auto) 0.1, Sodium Level 133L, Potassium Level 3.3L, Chloride Level 97L, Carbon Dioxide Level 24, Anion Gap 12, Blood Urea Nitrogen 37H, Creatinine 1.11, Estimat Glomerular Filtration Rate > 60, BUN/Creatinine Ratio 33, Glucose Level 107H, Calcium Level 7.9L, Phosphorus Level 2.6, Magnesium Level 1.9, B-Type Natriuretic Peptide 467.6H 07/16/20 02:25: White Blood Count 4.2L, Red Blood Count 3.90L, Hemoglobin 11.9L, Hematocrit 35L, Mean Corpuscular Volume 91, Mean Corpuscular Hemoglobin 31, Mean Corpuscular Hemoglobin Concent 34, Red Cell Distribution Width 12.4, Platelet Count 269, Mean Platelet Volume 11.2, Immature Granulocyte % (Auto) 2, Neutrophils (%) (Auto) 76H, Lymphocytes (%) (Auto) 17, Monocytes (%) (Auto) 5, Eosinophils (%) (Auto) 0, Basophils (%) (Auto) 0, Neutrophils # (Auto) 3.2, Lymphocytes # (Auto) 0.7L, Monocytes # (Auto) 0.2, Eosinophils # (Auto) 0.0, Basophils # (Auto) 0.0, Immature Granulocyte # (Auto) 0.1, D-Dimer 1.32H, Sodium Level 134L, Potassium Level 3.4L, Chloride Level 97L, Carbon Dioxide Level 23, Anion Gap 14, Blood Urea Nitrogen 42H, Creatinine 1.13, Estimat Glomerular Filtration Rate > 60, BUN/Creatinine Ratio 37, Glucose Level 186H, Calcium Level 8.2L, Phosphorus Level 3.4, Magnesium Level 2.3 07/16/20 02:30: Blood Gas Puncture Site LEFT RADIAL, Blood Gas Patient Temperature 36.2, Arterial Blood pH 7.44H, Arterial Blood Partial Pressure CO2 36, Arterial Blood Partial Pressure O2 85, Arterial Blood HCO3 25, Arterial Blood Total CO2 25.7, Arterial Blood Oxygen Saturation 96, Arterial Blood Base Excess 0.7, Qamar Test NEGATIVE, Blood Gas Ventilator Setting NO, Blood Gas Inspired Oxygen 60 07/17/20 03:30: White Blood Count 15.1H, Red Blood Count 3.80L, Hemoglobin 11.7L, Hematocrit 34L , Mean Corpuscular Volume 90, Mean Corpuscular Hemoglobin 31, Mean Corpuscular Hemoglobin Concent 34, Red Cell Distribution Width 12.2, Platelet Count 292, Mean Platelet Volume 10.9, Immature Granulocyte % (Auto) 2, Neutrophils (%) (Auto) 88H, Lymphocytes (%) (Auto) 5L, Monocytes (%) (Auto) 6, Eosinophils (%) (Auto) 0, Basophils (%) (Auto) 0, Neutrophils # (Auto) 13.3H, Lymphocytes # (Auto) 0.8L, Monocytes # (Auto) 0.8, Eosinophils # (Auto) 0.0, Basophils # (Auto) 0.0, Immature Granulocyte # (Auto) 0.2H, Sodium Level 137, Potassium Level 3.4L, Chloride Level 102, Carbon Dioxide Level 21, Anion Gap 14, Blood Urea Nitrogen 48H, Creatinine 1.24, Estimat Glomerular Filtration Rate 55, BUN/Creatinine Ratio 39, Glucose Level 142H, Calcium Level 8.2L, Phosphorus Level 2.1L, Magnesium Level 2.3, Neutrophils % (Manual) 90, Lymphocytes % (Manual) 7, Monocytes % (Manual) 3, Blood Morphology Comment NORMAL, Procalcitonin 0.15H 07/18/20 06:00: White Blood Count 14.2H, Red Blood Count 3.73L, Hemoglobin 11.5L, Hematocrit 34L , Mean Corpuscular Volume 90, Mean Corpuscular Hemoglobin 31, Mean Corpuscular Hemoglobin Concent 34, Red Cell Distribution Width 12.2, Platelet Count 298, Mean Platelet Volume 11.0, Immature Granulocyte % (Auto) 1, Neutrophils (%) (Auto) 87H, Lymphocytes (%) (Auto) 5L, Monocytes (%) (Auto) 6, Eosinophils (%) (Auto) 0, Basophils (%) (Auto) 0, Neutrophils # (Auto) 12.4H, Lymphocytes # (Auto) 0.8L, Monocytes # (Auto) 0.9, Eosinophils # (Auto) 0.0, Basophils # (Au to) 0.0, Immature Granulocyte # (Auto) 0.2H, Sodium Level 135, Potassium Level 4.1, Chloride Level 101, Carbon Dioxide Level 23, Anion Gap 11, Blood Urea Nitrogen 39H, Creatinine 1.04, Estimat Glomerular Filtration Rate > 60, BUN/Creatinine Ratio 38, Glucose Level 106H, Calcium Level 8.2L, Phosphorus Level 2.1L, Magnesium Level 2.2 Microbiology 07/03/20 MRSA Screen - Final, Complete MRSA not isolated 07/03/20 Blood Culture - Final, Complete No growth Pending Labs Microbiology Date/Time Source Procedure Growth Status 07/03/20 11:40 Nasal MRSA Screen - Final MRSA not isolated Complete 07/03/20 10:35 Peripheral Rt Hand Blood Culture - Final No growth Complete 07/03/20 10:30 Peripheral Rt Ac Blood Culture - Final No growth Complete Laboratory Tests 07/03/20 09:00: Lab Scanned Report Referred Lab Report 07/03/20 09:35: Blood Gas Puncture Site LT RAD, Blood Gas Patient Temperature 36.4, Arterial Blood pH 7.15, Arterial Blood Partial Pressure CO2 63, Arterial Blood Partial Pressure O2 72, Arterial Blood HCO3 21, Arterial Blood Total CO2 23.4, Arterial Blood Oxygen Saturation 86, Arterial Blood Base Excess -6.3, Qamar Test YES-POS, Blood Gas Ventilator Setting NO, Blood Gas Inspired Oxygen 40L VAPOTHERM 07/03/20 10:35: White Blood Count 6.6, Red Blood Count 4.49, Hemoglobin 14.1, Hematocrit 43, Mean Corpuscular Volume 95, Mean Corpuscular Hemoglobin 31, Mean Corpuscular Hemoglobin Concent 33, Red Cell Distribution Width 12.9, Platelet Count 229, Mean Platelet Volume 11.2, Immature Granulocyte % (Auto) 1, Neutrophils (%) (Auto) 61, Lymphocytes (%) (Auto) 29, Monocytes (%) (Auto) 9, Eosinophils (%) (Auto) 0, Basophils (%) (Auto) 0, Neutrophils # (Auto) 4.0, Lymphocytes # (Auto) 1.9, Monocytes # (Auto) 0.6, Eosinophils # (Auto) 0.0, Basophils # (Auto) 0.0, Immature Granulocyte # (Auto) 0.0, D-Dimer 2.34, Sodium Level 137, Potassium Level 3.7, Chloride Level 105, Carbon Dioxide Level 21, Anion Gap 11, Blood Urea Nitrogen 28, Creatinine 1.39, Estimat Glomerular Filtration Rate 49, BUN/Creatinine Ratio 20, Glucose Level 199, Lactic Acid Level 1.63, Calcium Level 7.7, Corrected Calcium 8.0, Phosphorus Level 5.8, Magnesium Level 1.8, Total Bilirubin 0.5, Aspartate Amino Transf (AST/SGOT) 75, Alanine Aminotransferase (ALT/SGPT) 23, Alkaline Phosphatase 80, Troponin I 12.392, B- Type Natriuretic Peptide 771.1, Total Protein 6.5, Albumin 3.6, Procalcitonin 0.11 07/03/20 11:40: Coronavirus 2019 ([facility]) Positive, Urine Legionella pneumophilia Ag Negative, Streptococcus pneumoniae Antigen Negative 07/03/20 13:07: Blood Gas Puncture Site LT RAD, Blood Gas Patient Temperature 37, Arterial Blood pH 7.36, Arterial Blood Partial Pressure CO2 36, Arterial Blood Partial Pressure O2 46, Arterial Blood HCO3 20, Arterial Blood Total CO2 20.9, Arterial Blood Oxygen Saturation 97, Arterial Blood Base Excess -4.6, Qamar Test POS, Blood Gas Ventilator Setting NO, Blood Gas Inspired Oxygen 70% 07/04/20 02:05: Blood Gas Puncture Site LEFT RADIAL, Blood Gas Patient Temperature 36.4, Arteria l Blood pH 7.35, Arterial Blood Partial Pressure CO2 44, Arterial Blood Partial Pressure O2 46, Arterial Blood HCO3 23, Arterial Blood Total CO2 24.8, Arterial Blood Oxygen Saturation 74, Arterial Blood Base Excess -1.7, Qamar Test YES-POS, Blood Gas Ventilator Setting NO, Blood Gas Inspired Oxygen 70%, White Blood Count 6.8, Red Blood Count 3.80, Hemoglobin 12.0, Hematocrit 36, Mean Corpuscular Volume 96, Mean Corpuscular Hemoglobin 32, Mean Corpuscular Hemoglobin Concent 33, Red Cell Distribution Width 13.2, Platelet Count 171, Mean Platelet Volume 11.3, Immature Granulocyte % (Auto) 0, Neutrophils (%) (Auto) 59, Lymphocytes (%) (Auto) 23, Monocytes (%) (Auto) 17, Eosinophils (%) (Auto) 0, Basophils (%) (Auto) 0, Neutrophils # (Auto) 4.0, Lymphocytes # (Auto) 1.6, Monocytes # (Auto) 1.2, Eosinophils # (Auto) 0.0, Basophils # (Auto) 0.0, Immature Granulocyte # (Auto) 0.0, Sodium Level 137, Potassium Level 3.8, Chloride Level 104, Carbon Dioxide Level 21, Anion Gap 12, Blood Urea Nitrogen 31, Creatinine 1.12, Estimat Glomerular Filtration Rate > 60, BUN/Creatinine Ratio 28, Glucose Level 98, Calcium Level 7.7, Phosphorus Level 4.0, Magnesium Level 1.9 07/05/20 03:45: White Blood Count 5.5, Red Blood Count 3.94, Hemoglobin 12.3, Hematocrit 37, Mean Corpuscular Volume 93, Mean Corpuscular Hemoglobin 31, Mean Corpuscular Hemoglobin Concent 34, Red Cell Distribution Width 12.7, Platelet Count 159, Mean Platelet Volume 11.0, Immature Granulocyte % (Auto) 0, Neutrophils (%) (Auto) 65, Lymphocytes (%) (Auto) 18, Monocytes (%) (Auto) 16, Eosinophils (%) (Auto) 0, Basophils (%) (Auto) 0, Neutrophils # (Auto) 3.6, Lymphocytes # (Auto) 1.0, Monocytes # (Auto) 0.9, Eosinophils # (Auto) 0.0, Basophils # (Auto) 0.0, Immature Granulocyte # (Auto) 0.0, Sodium Level 136, Potassium Level 3.8, Chloride Level 103, Carbon Dioxide Level 21, Anion Gap 12, Blood Urea Nitrogen 28, Creatinine 0.89, Estimat Glomerular Filtration Rate > 60, BUN/Creatinine Ratio 31, Glucose Level 142, Calcium Level 8.4, Phosphorus Level 2.3, Magnesium Level 1.9 07/06/20 03:16: White Blood Count 12.5, Red Blood Count 3.81, Hemoglobin 12.0, Hematocrit 36, Mean Corpuscular Volume 93, Mean Corpuscular Hemoglobin 32, Mean Corpuscular Hemoglobin Concent 34, Red Cell Distribution Width 12.9, Platelet Count 168, Mean Platelet Volume 11.4, Immature Granulocyte % (Auto) 0, Neutrophils (%) (Auto) 81, Lymphocytes (%) (Auto) 9, Monocytes (%) (Auto) 9, Eosinophils (%) (Auto) 0, Basophils (%) (Auto) 0, Neutrophils # (Auto) 10.1, Lymphocytes # (Auto) 1.1, Monocytes # (Auto) 1.1, Eosinophils # (Auto) 0.0, Basophils # (Auto) 0.0, Immature Granulocyte # (Auto) 0.0, Sodium Level 136, Potassium Level 4.0, Chloride Level 103, Carbon Dioxide Level 24, Anion Gap 9, Blood Urea Nitrogen 32, Creatinine 0.90, Estimat Glomerular Filtration Rate > 60, BUN/Creatinine Ratio 36, Glucose Level 125, Calcium Level 8.2, Phosphorus Level 2.9, Magnesium Level 1.9 07/07/20 06:14: White Blood Count 13.7, Red Blood Count 4.41, Hemoglobin 13.7, Hematocrit 42, Mean Corpuscular Volume 94, Mean Corpuscular Hemoglobin 31, Mean Corpuscular Hemoglobin Concent 33, Red Cell Distribution Width 13.0, Platelet Count 180, Mean Platelet Volume 11.8, Immature Granulocyte % (Auto) 1, Neutrophils (%) (Auto) 84, Lymphocytes (%) (Auto) 8, Monocytes (%) (Auto) 7, Eosinophils (%) (Auto) 0, Basophils (%) (Auto) 0, Neutrophils # (Auto) 11.5, Lymphocytes # (Auto) 1.1, Monocytes # (Auto) 1.0, Eosinophils # (Auto) 0.0, Basophils # (Auto) 0.0, Immature Granulocyte # (Auto) 0.1, D-Dimer 0.68, Sodium Level 139, Potassium Level 4.2, Chloride Level 102, Carbon Dioxide Level 26, Anion Gap 11, Blood Urea Nitrogen 34, Creatinine 0.99, Estimat Glomerular Filtration Rate > 60, BUN/Creatinine Ratio 34, Glucose Level 111, Calcium Level 8.9, Corrected Calcium 9.1, Total Bilirubin 0.8, Aspartate Amino Transf (AST/SGOT) 52, Alanine Aminotransferase (ALT/SGPT) 31, Alkaline Phosphatase 71, B-Type Natriuretic Peptide 1434.6, Total Protein 6.8, Albumin 3.7, Procalcitonin 0.23 07/07/20 07:00: Blood Gas Puncture Site LR, Blood Gas Patient Temperature 37.4, Arterial Blood pH 7.41, Arterial Blood Partial Pressure CO2 40, Arterial Blood Partial Pressure O2 78, Arterial Blood HCO3 25, Arterial Blood Total CO2 26.3, Arterial Blood Oxygen Saturation 95, Arterial Blood Base Excess 1.1, Qamar Test YES-POS, Blood Gas Ventilator Setting NO, Blood Gas Inspired Oxygen 100% 07/07/20 11:32: Glucometer 151 07/07/20 17:34: Glucometer 159 07/08/20 03:12: White Blood Count 11.0, Red Blood Count 4.20, Hemoglobin 13.0, Hematocrit 40, Mean Corpuscular Volume 95, Mean Corpuscular Hemoglobin 31, Mean Corpuscular Hemoglobin Concent 33, Red Cell Distribution Width 13.0, Platelet Count 175, Mean Platelet Volume 12.2, Immature Granulocyte % (Auto) 1, Neutrophils (%) (Auto) 89, Lymphocytes (%) (Auto) 5, Monocytes (%) (Auto) 6, Eosinophils (%) (Auto) 0, Basophils (%) (Auto) 0, Neutrophils # (Auto) 9.7, Lymphocytes # (Auto) 0.5, Monocytes # (Auto) 0.6, Eosinophils # (Auto) 0.0, Basophils # (Auto) 0.0, Immature Granulocyte # (Auto) 0.1, Neutrophils % (Manual) 80, Lymphocytes % (Manual) 10, Monocytes % (Manual) 5, Band Neutrophils 5, Blood Morphology Comment NORMAL, Sodium Level 139, Potassium Level 3.9, Chloride Level 97, Carbon Dioxide Level 29, Anion Gap 13, Blood Urea Nitrogen 39, Creatinine 1.14, Estimat Glomerular Filtration Rate > 60, BUN/Creatinine Ratio 34, Glucose Level 105, Calcium Level 9.3, Phosphorus Level 4.1, Magnesium Level 2.3 07/09/20 02:43: White Blood Count 10.2, Red Blood Count 3.99, Hemoglobin 12.3, Hematocrit 37, Mean Corpuscular Volume 93, Mean Corpuscular Hemoglobin 31, Mean Corpuscular Hemoglobin Concent 33, Red Cell Distribution Width 12.6, Platelet Count 186, Mean Platelet Volume 12.0, Immature Granulocyte % (Auto) 1, Neutrophils (%) (Auto) 85, Lymphocytes (%) (Auto) 7, Monocytes (%) (Auto) 7, Eosinophils (%) (Auto) 0, Basophils (%) (Auto) 0, Neutrophils # (Auto) 8.6, Lymphocytes # (Auto) 0.7, Monocytes # (Auto) 0.7, Eosinophils # (Auto) 0.0, Basophils # (Auto) 0.0, Immature Granulocyte # (Auto) 0.1, Sodium Level 138, Potassium Level 3.8, Chloride Level 96, Carbon Dioxide Level 30, Anion Gap 12, Blood Urea Nitrogen 50, Creatinine 1.32, Estimat Glomerular Filtration Rate 52, BUN/Creatinine Ratio 38, Glucose Level 129, Calcium Level 8.9, Phosphorus Level 4.6, Magnesium Level 2.3 07/10/20 05:52: White Blood Count 11.9, Red Blood Count 3.79, Hemoglobin 11.8, Hematocrit 35, Mean Corpuscular Volume 93, Mean Corpuscular Hemoglobin 31, Mean Corpuscular Hemoglobin Concent 34, Red Cell Distribution Width 12.7, Platelet Count 237, Mean Platelet Volume 11.4, Immature Granulocyte % (Auto) 2, Neutrophils (%) (Auto) 79, Lymphocytes (%) (Auto) 7, Monocytes (%) (Auto) 13, Eosinophils (%) (Auto) 0, Basophils (%) (Auto) 0, Neutrophils # (Auto) 9.5, Lymphocytes # (Auto) 0.8, Monocytes # (Auto) 1.5, Eosinophils # (Auto) 0.0, Basophils # (Auto) 0.0, Immature Granulocyte # (Auto) 0.2, Sodium Level 137, Potassium Level 3.7, Chloride Level 98, Carbon Dioxide Level 27, Anion Gap 12, Blood Urea Nitrogen 49, Creatinine 1.23, Estimat Glomerular Filtration Rate 56, BUN/Creatinine Ratio 40, Glucose Level 100, Calcium Level 8.9, Corrected Calcium 9.5, Total Bilirubin 0.7, Aspartate Amino Transf (AST/SGOT) 34, Alanine Aminotransferase (ALT/SGPT) 35, Alkaline Phosphatase 59, Total Protein 6.3, Albumin 3.3 07/11/20 06:18: White Blood Count 10.6, Red Blood Count 4.14, Hemoglobin 12.8, Hematocrit 39, M alicia Corpuscular Volume 94, Mean Corpuscular Hemoglobin 31, Mean Corpuscular Hemoglobin Concent 33, Red Cell Distribution Width 12.5, Platelet Count 256, Mean Platelet Volume 11.5, Immature Granulocyte % (Auto) 2, Neutrophils (%) (Auto) 78, Lymphocytes (%) (Auto) 8, Monocytes (%) (Auto) 12, Eosinophils (%) (Auto) 0, Basophils (%) (Auto) 0, Neutrophils # (Auto) 8.3, Lymphocytes # (Auto) 0.8, Monocytes # (Auto) 1.3, Eosinophils # (Auto) 0.0, Basophils # (Auto) 0.0, Immature Granulocyte # (Auto) 0.2, Sodium Level 135, Potassium Level 3.7, Chloride Level 97, Carbon Dioxide Level 25, Anion Gap 13, Blood Urea Nitrogen 43, Creatinine 1.17, Estimat Glomerular Filtration Rate 59, BUN/Creatinine Ratio 37, Glucose Level 96, Calcium Level 9.3, Corrected Calcium 9.6, Total Bilirubin 1.0, Aspartate Amino Transf (AST/SGOT) 36, Alanine Aminotransferase (ALT/SGPT) 37, Alkaline Phosphatase 66, Total Protein 7.1, Albumin 3.6, Procalcitonin 0.16 07/12/20 07:00: White Blood Count 7.5, Red Blood Count 4.08, Hemoglobin 12.5, Hematocrit 38, Mean Corpuscular Volume 92, Mean Corpuscular Hemoglobin 31, Mean Corpuscular Hemoglobin Concent 33, Red Cell Distribution Width 12.5, Platelet Count 240, Mean Platelet Volume 11.2, Immature Granulocyte % (Auto) 5, Neutrophils (%) (Auto) 75, Lymphocytes (%) (Auto) 8, Monocytes (%) (Auto) 12, Eosinophils (%) (Auto) 0, Basophils (%) (Auto) 0, Neutrophils # (Auto) 5.6, Lymphocytes # (Auto) 0.6, Monocytes # (Auto) 0.9, Eosinophils # (Auto) 0.0, Basophils # (Auto) 0.0, Immature Granulocyte # (Auto) 0.4, Sodium Level 134, Potassium Level 3.6, Chloride Level 97, Carbon Dioxide Level 24, Anion Gap 13, Blood Urea Nitrogen 40, Creatinine 1.17, Estimat Glomerular Filtration Rate 59, BUN/Creatinine Ratio 34, Glucose Level 106, Calcium Level 8.8, Corrected Calcium 9.4, Total Bilirubin 1.1, Aspartate Amino Transf (AST/SGOT) 46, Alanine Aminotransferase (ALT/SGPT) 38, Alkaline Phosphatase 61, Total Protein 6.4, Albumin 3.2 07/14/20 05:32: White Blood Count 8.8, Red Blood Count 3.98, Hemoglobin 12.3, Hematocrit 36, Mean Corpuscular Volume 91, Mean Corpuscular Hemoglobin 31, Mean Corpuscular Hemoglobin Concent 34, Red Cell Distribution Width 12.2, Platelet Count 263, Mean Platelet Volume 10.8, Immature Granulocyte % (Auto) 2, Neutrophils (%) (Auto) 81, Lymphocytes (%) (Auto) 12, Monocytes (%) (Auto) 5, Eosinophils (%) (Auto) 0, Basophils (%) (Auto) 0, Neutrophils # (Auto) 7.1, Lymphocytes # (Auto) 1.0, Monocytes # (Auto) 0.4, Eosinophils # (Auto) 0.0, Basophils # (Auto) 0.0, Immature Granulocyte # (Auto) 0.2, Sodium Level 132, Potassium Level 3.1, Chloride Level 96, Carbon Dioxide Level 23, Anion Gap 13, Blood Urea Nitrogen 38, Creatinine 0.97, Estimat Glomerular Filtration Rate > 60, BUN/Creatinine Ratio 39, Glucose Level 106, Calcium Level 8.4, Corrected Calcium 9.2, Total Bilirubin 0.7, Aspartate Amino Transf (AST/SGOT) 77, Alanine Aminotransferase (ALT/SGPT) 52, Alkaline Phosphatase 66, Total Protein 6.3, Albumin 3.0, D-Dimer 1.58, Phosphorus Level 2.7, Magnesium Level 2.0, Procalcitonin 0.29 07/14/20 07:02: Blood Gas Puncture Site RT BRACH, Blood Gas Patient Temperature 37.0, Arterial Blood pH 7.49, Arterial Blood Partial Pressure CO2 34, Arterial Blood Partial Pressure O2 64, Arterial Blood HCO3 26, Arterial Blood Total CO2 26.8, Arterial Blood Oxygen Saturation 92, Arterial Blood Base Excess 2.6, Qamar Test YES-POS, Blood Gas Ventilator Setting NO, Blood Gas Inspired Oxygen 75% 07/15/20 03:00: White Blood Count 7.8, Red Blood Count 3.67, Hemoglobin 11.4, Hematocrit 34, Mean Corpuscular Volume 92, Mean Corpuscular Hemoglobin 31, Mean Corpuscular Hemoglobin Concent 34, Red Cell Distribution Width 12.3, Platelet Count 245, Mean Platelet Volume 11.0, Immature Granulocyte % (Auto) 2, Neutrophils (%) (Auto) 82, Lymphocytes (%) (Auto) 10, Monocytes (%) (Auto) 5, Eosinophils (%) (Auto) 0, Basophils (%) (Auto) 0, Neutrophils # (Auto) 6.4, Lymphocytes # (Auto) 0.8, Monocytes # (Auto) 0.4, Eosinophils # (Auto) 0.0, Basophils # (Auto) 0.0, Immature Granulocyte # (Auto) 0.1, Sodium Level 133, Potassium Level 3.3, Chloride Level 97, Carbon Dioxide Level 24, Anion Gap 12, Blood Urea Nitrogen 37, Creatinine 1.11, Estimat Glomerular Filtration Rate > 60, BUN/Creatinine Ratio 33, Glucose Level 107, Calcium Level 7.9, Phosphorus Level 2.6, Magnesium Level 1.9, B-Type Natriuretic Peptide 467.6 07/16/20 02:25: White Blood Count 4.2, Red Blood Count 3.90, Hemoglobin 11.9, Hematocrit 35, Mean Corpuscular Volume 91, Mean Corpuscular Hemoglobin 31, Mean Corpuscular Hemoglobin Concent 34, Red Cell Distribution Width 12.4, Platelet Count 269, Mean Platelet Volume 11.2, Immature Granulocyte % (Auto) 2, Neutrophils (%) (Auto) 76, Lymphocytes (%) (Auto) 17, Monocytes (%) (Auto) 5, Eosinophils (%) (Auto) 0, Basophils (%) (Auto) 0, Neutrophils # (Auto) 3.2, Lymphocytes # (Auto) 0.7, Monocytes # (Auto) 0.2, Eosinophils # (Auto) 0.0, Basophils # (Auto) 0.0, Immature Granulocyte # (Auto) 0.1, D-Dimer 1.32, Sodium Level 134, Potassium Level 3.4, Chloride Level 97, Carbon Dioxide Level 23, Anion Gap 14, Blood Urea Nitrogen 42, Creatinine 1.13, Estimat Glomerular Filtration Rate > 60, BU N/Creatinine Ratio 37, Glucose Level 186, Calcium Level 8.2, Phosphorus Level 3.4, Magnesium Level 2.3 07/16/20 02:30: Blood Gas Puncture Site LEFT RADIAL, Blood Gas Patient Temperature 36.2, Arterial Blood pH 7.44, Arterial Blood Partial Pressure CO2 36, Arterial Blood Partial Pressure O2 85, Arterial Blood HCO3 25, Arterial Blood Total CO2 25.7, Arterial Blood Oxygen Saturation 96, Arterial Blood Base Excess 0.7, Qamar Test NEGATIVE, Blood Gas Ventilator Setting NO, Blood Gas Inspired Oxygen 60 07/17/20 03:30: White Blood Count 15.1, Red Blood Count 3.80, Hemoglobin 11.7, Hematocrit 34, Mean Corpuscular Volume 90, Mean Corpuscular Hemoglobin 31, Mean Corpuscular Hemoglobin Concent 34, Red Cell Distribution Width 12.2, Platelet Count 292, Mean Platelet Volume 10.9, Immature Granulocyte % (Auto) 2, Neutrophils (%) (Auto) 88, Lymphocytes (%) (Auto) 5, Monocytes (%) (Auto) 6, Eosinophils (%) (Auto) 0, Basophils (%) (Auto) 0, Neutrophils # (Auto) 13.3, Lymphocytes # (Auto) 0.8, Monocytes # (Auto) 0.8, Eosinophils # (Auto) 0.0, Basophils # (Auto) 0.0, Immature Granulocyte # (Auto) 0.2, Sodium Level 137, Potassium Level 3.4, Chloride Level 102, Carbon Dioxide Level 21, Anion Gap 14, Blood Urea Nitrogen 48, Creatinine 1.24, Estimat Glomerular Filtration Rate 55, BUN/Creatinine Ratio 39, Glucose Level 142, Calcium Level 8.2, Phosphorus Level 2.1, Magnesium Level 2.3, Neutrophils % (Manual) 90, Lymphocytes % (Manual) 7, Monocytes % (Manual) 3, Blood Morphology Comment NORMAL, Procalcitonin 0.15 07/18/20 06:00: White Blood Count 14.2, Red Blood Count 3.73, Hemoglobin 11.5, Hematocrit 34, Mean Corpuscular Volume 90, Mean Corpuscular Hemoglobin 31, Mean Corpuscular Hemoglobin Concent 34, Red Cell Distribution Width 12.2, Platelet Count 298, Mean Platelet Volume 11.0, Immature Granulocyte % (Auto) 1, Neutrophils (%) (Auto) 87, Lymphocytes (%) (Auto) 5, Monocytes (%) (Auto) 6, Eosinophils (%) (Auto) 0, Basophils (%) (Auto) 0, Neutrophils # (Auto) 12.4, Lymphocytes # (Auto) 0.8, Monocytes # (Auto) 0.9, Eosinophils # (Auto) 0.0, Basophils # (Auto) 0.0, Immature Granulocyte # (Auto) 0.2, Sodium Level 135, Potassium Level 4.1, Chloride Level 101, Carbon Dioxide Level 23, Anion Gap 11, Blood Urea Nitrogen 39, Creatinine 1.04, Estimat Glomerular Filtration Rate > 60, BUN/Creatinine Ratio 38, Glucose Level 106, Calcium Level 8.2, Phosphorus Level 2.1, Magnesium Level 2.2 Discharge Home Medications: Active Scripts Active Guaifenesin AC Cough Syrup (Guaifenesin/Codeine Phosphate) 473 Ml Liquid 10 Ml PO Q4H Augmentin 875-125 Tablet (Amoxicillin/Potassium Clav) 1 Each Tablet 1 Each PO BID Decadron (Dexamethasone) 6 Mg Tablet 6 Mg PO DAILY Mucinex (Guaifenesin) 600 Mg Tab.er.12h 600 Mg PO BID Advair Hfa 115-21 Mcg Inhaler (Fluticasone/Salmeterol) 12 Gm Hfa.aer.ad 0 Puff IH RTBID Furosemide 20 Mg Tablet 20 Mg PO DAILY Metoprolol Succinate 25 Mg Tab.er.24h 25 Mg PO DAILY Clopidogrel (Clopidogrel Bisulfate) 75 Mg Tablet 75 Mg PO DAILY Ventolin Hfa (Albuterol Sulfate) 18 Gm Hfa.aer.ad 0 Gm IH Q2HR PRN Atrovent Hfa (Ipratropium [place]) 12.9 Gm Aers 0 Gm INH [id number] Reported Cyclobenzaprine HCl 10 Mg Tablet 10 Mg PO TID PRN Aspirin EC (Aspirin) 81 Mg Tablet.dr 81 Mg PO DAILY Centrum Silver Tablet (Multivit-Min/FA/Lycopene/Lut) 1 Each Tablet 1 Each PO DAILY Brimonidine Tartrate 5 Ml Btl 1 Drop OU BID Dorzolamide-Timolol Eye Drops (Dorzolamide HCl/Timolol Maleat) 10 Ml Drops 1 Drop OU BID Rosuvastatin Calcium 40 Mg Tablet 20 Mg PO HS TAKES OF A 40MG TAB Amlodipine Besylate 10 Mg Tablet 10 Mg PO DAILY Lisinopril 20 Mg Tablet 20 Mg PO DAILY Chlorthalidone 25 Mg Tablet 25 Mg PO DAILY Instructions to patient/family Please see electronic discharge instructions given to patient. JAMILA LEUNG DO Jul 18, 2020 10:44
--- NOTE | 2020-07-18 12:05 | Physical Therapy Progress Note ---
Therapy Progress Note Checked with patient this morning, he reports he plans to discharge today. Confirmed with the nurse. Discussed HHC PT with the patient and he was not resistant. However, when I spoke with the SW, she reported he did not seem interested in HHC. She noted she would follow up and see if his mind had changed. No treatment this date. SAL GARCIA PT Jul 18, 2020 12:05
--- NOTE | 2020-07-18 12:43 | NUR ---
CM/SS: [facility] from [place], [place] - will be responsible for the oxygen delivery. Phone number [phone]. They oxygen will come from [place], [place]. They estimate they are 2 hours away. Information needed to be clarified so that an portable tank could be delivered to the hospital. [facility] [place] [place] [facility] the [facility] [place] [facility] need for the tank to be delivered to the hospital prior to discharge.
--- NOTE | 2020-07-18 14:27 | NUR ---
CM/SS: Telephone call from [facility] they are authorizing [facility] and will follow the pt and give orders. Pt does have Medicare [id number] - in [facility] to [facility] for [facility]. Dr. To Kirkpatrick, MAGO Arevalo, and nurse Carlo phone number is [phone] ext [phone] - fax [phone] - if there are specific questions please call Parul at [phone]. Information is faxed to [facility]. JANETH Lopes is notified of the above information.
[2020-07-18 16:20] VITALS: BP 128/60
== END 2020-07-18 16:40 | disposition home or self-care (01) | DRG 177 ==
LOC: ICU 09:00 → 4TH 07-06 12:42 → ICU 07-07 06:53 → 4TH 07-09 08:13 → CSD 07-14 12:53 → ICU 07-15 10:05 → CSD 07-16 18:57 → 4TH 07-17 08:28
PROVIDERS: ADMIT Internal Medicine; ATTEND Internal Medicine
PROC: XW13325 Transfusion of Convalescent Plasma (Nonautologous) into Peripheral Vein, Percutaneous Approach, New Technology Group 5 (ICD-10-PCS; 2020-07-03)
PROC: 5A09357 Assistance with Respiratory Ventilation, Less than 24 Consecutive Hours, Continuous Positive Airway Pressure (ICD-10-PCS; 2020-07-03)
PROC: B2111ZZ Fluoroscopy of Multiple Coronary Arteries using Low Osmolar Contrast (ICD-10-PCS; principal; 2020-07-05)
PROC: B3101ZZ Fluoroscopy of Thoracic Aorta using Low Osmolar Contrast (ICD-10-PCS; 2020-07-05)
PROC: 4A023N7 Measurement of Cardiac Sampling and Pressure, Left Heart, Percutaneous Approach (ICD-10-PCS; 2020-07-05)
DX: U07.1 COVID-19 (principal); J80 Acute respiratory distress syndrome; I21.A1 Myocardial infarction type 2; J12.82 Pneumonia due to coronavirus disease 2019; N17.9 Acute kidney failure, unspecified; I45.2 Bifascicular block; T82.855A Stenosis of coronary artery stent, initial encounter; Z95.5 Presence of coronary angioplasty implant and graft; I25.10 Atherosclerotic heart disease of native coronary artery without angina pectoris; I35.0 Nonrheumatic aortic (valve) stenosis; I95.9 Hypotension, unspecified
CPT/HCPCS: 36415; 36569; 36600; 71045; 71275; 76937; 80048; 80053; 82805; 82962; 83605; 83735; 83880; 84100; 84145; 84484; 85007; 85025; 85027; 85379; 86900; 86901; 87040; 87081; 87449; 87635; 87899; 93005; 93306; 93454; 93567; 93970; 94640; 94660; 94664; 94760; 94761